=== PATIENT | male | born 1940 | race Caucasian/White ===

== ENCOUNTER 2021-12-29 14:28 | Outpatient (REF) | payer MEDICARE, SELFPAY ==
--- NOTE | ~2021-12-29 | US_ITS ---
EXAMINATION: US SCROTUM CLINICAL INFORMATION: Scrotal mass. COMPARISON: None TECHNIQUE: A sonogram of the scrotum was performed assessing haskins-scale appearance and color Doppler flow. Spectral Doppler analysis of the arterial and venous flow were performed in the testes bilaterally. FINDINGS: RIGHT: Right testicle measures 3.9 x 2.1 x 2.5 cm, volume 10.3 mL. No focal testicular parenchymal lesions are visualized. Spectral Doppler analysis of the arterial and venous flow is normal in the right testis. Right epididymal head is normal in size. There are two sub-7 mm simple epididymal head cysts. Right epididymal Doppler flow is normal. Small hydrocele. Small to moderate varicocele. LEFT: Left testicle measures 3.9 x 1.9 x 2.8 cm, volume 10.6 mL. No focal testicular parenchymal lesions are visualized. Spectral Doppler analysis of the arterial and venous flow is normal in the left testis. Left epididymal head is normal in size. There is a dominant 1.2 x 0.3 x 0.5 cm simple appearing epididymal head cyst and an additional smaller 0.4 cm simple appearing epididymal head cyst. There is a 0.6 x 0.5 x 0.7 cm simple appearing cyst in the epididymal body. There is a 0.6 x 0.5 x 0.5 cm hyperechoic observation in the epididymal body, possibly representing a calcification. Left epididymal Doppler flow is normal. No hydrocele. Small to moderate varicocele. US/US scrotum IMPRESSION: 1. No evidence of testicular torsion at the moment of this examination. 2. Small right hydrocele. 3. Small to moderate bilateral varicoceles. 4. Simple appearing bilateral epididymal head cysts. 5. Nonspecific 0.7 cm hyperechoic observation in the left epididymal body, possibly representing a calcification. Recommend a short-term follow-up in 3-6 months to ensure stability.
== END 2021-12-29 14:29 | disposition home or self-care (01) ==
LOC: HO.HMGCX 14:28
PROVIDERS: PCP Family Medicine; Visit Provider Family Medicine
DX: N50.89 Other specified disorders of the male genital organs (principal)
CPT/HCPCS: 76870

== ENCOUNTER 2022-01-04 09:35 | Outpatient (REF) | payer MEDICARE, SELFPAY ==
[2022-01-04 11:43] LABS: MANUAL DIFF FLAG NO
[2022-01-04 11:57] LABS: Appearance Urine Clear; Color Urine Yellow; Glucose Urine UA Negative (Negative); Leukocyte Esterase Urine Negative (Negative); Nitrite Urine Negative (Negative); PH 6.5 (5.0-9.0); Specific Gravity - Urine 1.015 (1.005-1.025); Urine Blood Negative (Negative); Urine Ketones Negative (Negative); Urine Protein Negative (Neg-Trace)
[2022-01-04 11:59] LABS: Basophils Absolute Auto 0.1 X10*3/uL (0.0-0.2); Basophils Percent Auto 1.2 % (0-2); Eosinophils Absolute Auto 0.6 X10*3/uL (0.0-0.4); Eosinophils Percent Auto 9.4 % (0-4); Hematocrit 45.3 % (42.0-52.0); Hemoglobin 14.6 g/dl (14.0-18.0); Imm Gran Abs Auto 0.04 X10*3/uL (0.00-0.03); Imm Gran Pct Auto 0.6 % (0.0-0.4); Lymphocytes Absolute Auto 1.4 X10*3/uL (1.2-4.9); Lymphocytes Percent Auto 20.5 % (20-40); Mean Corpuscular HGB Conc 32.2 g/dl (31.0-36.0); Mean Corpuscular Hemoglobin 28.5 pg (27.0-33.0); Mean Corpuscular Volume 88.3 fL (80.0-98.0); Mean Platelet Volume 10.3 fL (9.4-12.4); Monocytes Absolute Auto 0.6 X10*3/uL (0.1-1.2); Monocytes Percent Auto 8.4 % (2-11); Neutrophils Percent Auto 59.9 % (45-73); Platelet Count 322 X10*3/uL (160-400); Red Blood Count 5.13 X10*6/uL (4.60-5.80); Red Cell Distribution Width 12.6 % (11.0-16.0); White Blood Count 6.7 X10*3/uL (4.8-10.8)
[2022-01-04 12:21] LABS: Alanine Aminotransferase 13 U/L (0-40); Albumin Level 3.9 g/dL (3.5-5.0); Alkaline Phosphatase 115 U/L (39-117); Anion Gap 14 (12-20); Aspartate Amino Transferase 16 U/L (5-37); Bilirubin Total 0.4 mg/dL (0.0-1.0); Blood Urea Nitrogen 12 mg/dL (9-16); Calcium 9.5 mg/dL (8.4-10.2); Carbon Dioxide 31 mmol/L (22-29); Chloride 98 mmol/L (96-108); Cholesterol 151 mg/dL; Estimated Glomerular Filt Rate > 60; Glucose Fasting 91 mg/dL (60-99); HDL Cholesterol 41 mg/dL; LDL Cholesterol Calculated 92 mg/dl; Potassium 4.2 mmol/L (3.3-5.1); Sodium 139 mmol/L (135-145); Total Protein 6.5 g/dL (6.5-8.0); Triglycerides 90 mg/dL
[2022-01-04 12:25] LABS: Prostate Specific Antigen Scr 0.38 ng/mL (<0.05-4.0); TSH reflex Free T4 0.96 uIU/mL (0.32-4.0)
[2022-01-04 12:29] LABS: Creatinine Urine 199.82 mg/dL; Microalbum/Creatinine Ratio Ur 3.5 ug/mg cr
== END 2022-01-04 09:36 | disposition home or self-care (01) ==
LOC: HO.HMGCLDS 09:35
PROVIDERS: PCP Family Medicine; Visit Provider Family Medicine
DX: Z00.00 Encounter for general adult medical examination without abnormal findings (principal); Z12.5 Encounter for screening for malignant neoplasm of prostate; I10 Essential (primary) hypertension
CPT/HCPCS: 36415; 80053; 80061; 81003; 82043; 84153; 84443; 85025

== ENCOUNTER → 2022-01-13 10:56 | Outpatient (BNVA) | payer MEDICARE, SELFPAY | PROVIDERS: PCP Family Medicine; Referring Provider Family Medicine; Visit Provider Physician Assistant | DX: Z12.11 Encounter for screening for malignant neoplasm of colon (principal); J84.10 Pulmonary fibrosis, unspecified | CPT/HCPCS: 99202 ==

== ENCOUNTER → 2022-03-22 13:00 | Outpatient (BNVA) | payer MEDICARE, SELFPAY | PROVIDERS: PCP Family Medicine; Visit Provider Urology | DX: N50.89 Other specified disorders of the male genital organs (principal); N40.1 Benign prostatic hyperplasia with lower urinary tract symptoms; N13.8 Other obstructive and reflux uropathy; R39.198 Other difficulties with micturition; Z12.5 Encounter for screening for malignant neoplasm of prostate; Z79.82 Long term (current) use of aspirin | CPT/HCPCS: 51798; 99202 ==

== ENCOUNTER 2022-03-26 11:34 | Outpatient (REF) | payer MEDICARE, SELFPAY ==
--- NOTE | ~2022-03-26 | US_ITS ---
EXAMINATION: US SCROTUM CLINICAL INFORMATION: Lesion of testis. COMPARISON: Ultrasound scrotum 12/29/2021. TECHNIQUE: A sonogram of the scrotum was performed assessing haskins-scale appearance and color Doppler flow. Spectral Doppler analysis of the arterial and venous flow were performed in the testes bilaterally. FINDINGS: RIGHT: Right testicle measures 4.26 x 1.72 x 2.75 cm, volume 10.6 mL. No focal testicular parenchymal lesions are visualized. Spectral Doppler analysis of the arterial and venous flow is normal in the right testis. Right epididymal head is normal in size. Three epididymal cysts are noted ranging in size from 3 to 7 mm similar to the prior study. A small right-sided varicocele is present similar to prior. Right epididymal Doppler flow is normal. LEFT: Left testicle measures 3.94 x 1.81 x 2.71 cm, volume 10.1 mL. No focal testicular parenchymal lesions are visualized. Spectral Doppler analysis of the arterial and venous flow is normal in the left testis. Left epididymal head is normal in size. Three epididymal cysts are present ranging in size from 5 to 8 mm. The previously noted calcification in the left epididymis is again noted and unchanged measuring about 5 mm in size. No left hydrocele is seen. A small left-sided varicocele is present. Left epididymal Doppler flow is normal. US/US scrotum IMPRESSION: 1. No significant interval change since the prior study. 2. Bilateral epididymal cysts. 3. Bilateral small varicoceles. 4. The calcification/echogenic focus seen in the left epididymis is unchanged and stable.
== END 2022-03-26 11:35 | disposition home or self-care (01) ==
LOC: HO.HMGCX 11:34
PROVIDERS: PCP Family Medicine; Visit Provider Urology
DX: N50.9 Disorder of male genital organs, unspecified (principal)
CPT/HCPCS: 76870

== ENCOUNTER 2022-04-15 12:32 | Outpatient (REF) | payer MEDICARE, SELFPAY ==
[2022-04-15 14:29] LABS: Appearance Urine Clear; Color Urine Yellow; Glucose Urine UA Negative (Negative); Leukocyte Esterase Urine Negative (Negative); Nitrite Urine Negative (Negative); PH 6.5 (5.0-9.0); Urine Blood Negative (Negative); Urine Ketones Trace mg/dL (Negative); Urine Protein Negative (Neg-Trace)
== END 2022-04-15 12:33 | disposition home or self-care (01) ==
LOC: HO.LAB 12:32
PROVIDERS: Visit Provider Family Medicine
DX: Z13.89 Encounter for screening for other disorder (principal)
CPT/HCPCS: 81003; 87086

== ENCOUNTER 2022-04-15 12:46 | Outpatient (REF) | payer MEDICARE, SELFPAY ==
[2022-04-15 14:12] LABS: MANUAL DIFF FLAG NO
[2022-04-15 14:16] LABS: Basophils Absolute Auto 0.1 X10*3/uL (0.0-0.2); Eosinophils Absolute Auto 0.9 X10*3/uL (0.0-0.4); Eosinophils Percent Auto 10.3 % (0-4); Hematocrit 44.9 % (42.0-52.0); Hemoglobin 15.1 g/dl (14.0-18.0); Imm Gran Abs Auto 0.01 X10*3/uL (0.00-0.03); Imm Gran Pct Auto 0.1 % (0.0-0.4); Lymphocytes Absolute Auto 1.5 X10*3/uL (1.2-4.9); Lymphocytes Percent Auto 16.8 % (20-40); Mean Corpuscular HGB Conc 33.6 g/dl (31.0-36.0); Mean Corpuscular Hemoglobin 29.5 pg (27.0-33.0); Mean Corpuscular Volume 87.9 fL (80.0-98.0); Mean Platelet Volume 10.5 fL (9.4-12.4); Monocytes Percent Auto 11.3 % (2-11); Neutrophils Absolute Auto 5.4 x10*3/uL (2.0-8.3); Neutrophils Percent Auto 60.5 % (45-73); Platelet Count 239 X10*3/uL (160-400); Red Blood Count 5.11 X10*6/uL (4.60-5.80); Red Cell Distribution Width 12.9 % (11.0-16.0); White Blood Count 8.9 X10*3/uL (4.8-10.8)
[2022-04-15 14:45] LABS: Alanine Aminotransferase 16 U/L (0-40); Albumin Level 4.1 g/dL (3.5-5.0); Alkaline Phosphatase 115 U/L (39-117); Anion Gap 14 (12-20); Aspartate Amino Transferase 18 U/L (5-37); Bilirubin Total 0.7 mg/dL (0.0-1.0); Blood Urea Nitrogen 13 mg/dL (9-16); Calcium 9.6 mg/dL (8.4-10.2); Carbon Dioxide 31 mmol/L (22-29); Chloride 95 mmol/L (96-108); Estimated Glomerular Filt Rate > 60; Glucose Random 89 mg/dL (60-115); Potassium 4.1 mmol/L (3.3-5.1); Sodium 136 mmol/L (135-145); Total Protein 6.4 g/dL (6.5-8.0)
== END 2022-04-15 12:47 | disposition home or self-care (01) ==
LOC: HO.WFDLDS 12:46
PROVIDERS: Visit Provider Family Medicine
DX: Z00.00 Encounter for general adult medical examination without abnormal findings (principal); M54.9 Dorsalgia, unspecified
CPT/HCPCS: 36415; 80053; 81003; 85025; 87086

== ENCOUNTER 2022-05-13 13:28 | Outpatient (REF) | payer MEDICARE, SELFPAY ==
--- NOTE | ~2022-05-13 | XR_ITS ---
EXAMINATION: XR lumbar spine 2-3V CLINICAL INFORMATION: Reason for Exam M54.9 - Dorsalgia, unspecified COMPARISON: None TECHNIQUE: 3 views of the lumbar spine FINDINGS: 5 nonrib-bearing lumbar-type vertebral bodies. Vertebral body heights are maintained. Alignment is maintained. Mild multilevel degenerative disc disease with loss of disc space height, facet arthropathy and disc osteophyte complexes. This is worst at L5/S1 Atherosclerosis of the abdominal aorta. Right upper quadrant cholecystectomy clips. XR/XR lumbar spine 2-3V IMPRESSION: Mild spondylosis of the lumbar spine, as above detailed. No significant spondylolisthesis.
== END 2022-05-13 13:29 | disposition home or self-care (01) ==
LOC: HO.HMGCX 13:28
PROVIDERS: PCP Family Medicine; Visit Provider Family Medicine
DX: M54.9 Dorsalgia, unspecified (principal)
CPT/HCPCS: 72100

== ENCOUNTER → 2022-06-04 13:55 | Outpatient (BNVA) | payer MEDICARE, SELFPAY | PROVIDERS: PCP Family Medicine; Visit Provider Urology | DX: R39.198 Other difficulties with micturition (principal); N40.1 Benign prostatic hyperplasia with lower urinary tract symptoms; N13.8 Other obstructive and reflux uropathy; Z12.5 Encounter for screening for malignant neoplasm of prostate; Z79.82 Long term (current) use of aspirin; Z79.899 Other long term (current) drug therapy | CPT/HCPCS: 51798; 99212 ==

== ENCOUNTER 2022-12-08 14:48 | Outpatient (AMB) | payer MEDICARE, SELFPAY ==
[2022-12-08 14:57] VITALS: BP 130/74; PULSE 72; O2SAT 96; BMI 23.8
--- NOTE | 2022-12-08 14:57 | MHC.PC.OV ---
Vital Signs 12/08/22 14:57 Height 5 ft 7 in Weight 152 lb 3 oz BMI 23.8 BP 130/74 Blood Pressure Location Lt brachial Position Sitting Pulse 72 Pulse Source Pulse Oximeter Pulse Oximetry (%) 96 Oxygen Delivery Method Room Air Intake Visit Reasons: f/u hypertension and chronic conditions Intake Note: Patient is here for follow up on hypertension and chronic conditions. Allergies No Known Allergies Allergy (Verified 12/08/22 15:00) Medication List - Last Reconciled 12/08/22 by Eugenio Lovett MD atorvastatin 40 mg PO DAILY 90 days clotrimazole 1% 1 appl topical BID 4 weeks erythromycin 1 appl ophthalmic (eye) DAILY gabapentin 600 mg PO TID 30 days lidocaine 5% (Lidoderm) 1 patch topical DAILY 30 days omeprazole 20 mg PO DAILY tamsulosin 0.4 mg PO BEDTIME valsartan 20 mg (1/2 x 40 mg) PO BID 30 days Tobacco use date assessed: 12/08/22 Fall risk assessment: No Falls in past year Last assessed Fall Risk: 12/08/22 Dental Screening Did you have a dental visit in the last 12 months?: Yes Did you have a dental problem in the last 6 months where you did not have access to dental care?: No Was dental information given to patient?: Patient has dentist HPI f/u hypertension and chronic conditions HPI Details 82 y/o male presents to f/u hypertension and chronic conditions. Trialing off hydrochlorothiazide. Blood pressure today 130/74. He is on valsartan 20mg b.i.d. Pt reports he had not been feeling lightheaded lately except for when he coughs. Pt reports back pain. He notes he has had surgery there before. [facility] Surgical History History of back surgery History of rotator cuff surgery History of ear, nose, and throat (ENT) surgery History of left knee replacement Family History Other Substance use disorder Social History Housing: Apartment Alcohol intake: never Patient Tobacco Use Status: Former Tobacco user e-Cigarette/Vaping Use: Never Used Second Hand Smoke Exposure: Yes service: No Current occupational status: retired Current occupational exposures/hazards: No Cognitive needs: No Hearing needs: Yes (hearing aides) Vision needs: No Questionnaire Thrive Questionnaire Date Thrive assessed: 04/15/22 KARTHIK-7 AMB Questionnaire KARTHIK-7 Date KARTHIK - 7 assessed: 04/15/22 Source: Developed by Drs. Jr Mcrae, Caitlin Almaguer, Kennedy Joya and colleagues, with an educational armin from [employer]. Review of Systems Const Denies chills, Denies fatigue, Denies fever(s), Denies headache(s) and Denies weakness ENT Denies dizziness and Denies headache(s) Card Denies dyspnea Resp Denies cough, Denies dyspnea, Denies wheezing and Denies other (shortness of breath) Musc Reports back pain, Denies numbness and Denies tingling Neuro Denies dizziness, Denies headache(s), Denies numbness, Denies tingling and Denies weakness Psych Denies anxiety and Denies depression Endo Denies fatigue Aller/Immun Denies wheezing Physical exam (Primary Care) Vital Signs: Last Vital Signs Pulse 72 12/08/22 14:57 BP 130/74 12/08/22 14:57 Pulse Ox 96 12/08/22 14:57 Oxygen Delivery Method Room Air 12/08/22 14:57 BMI result Body Mass Index 23.8 Tobacco/Smoking Status: Tobacco use Status Tobacco use date assessed 12/08/22 12/08/22 15:01 Patient Tobacco Use Status Former Tobacco user 12/08/22 15:01 e-Cigarette/Vaping Use Never Used 12/08/22 15:01 Thrive Assessment: Date of Thrive Assessment Date Thrive assessed 04/15/22 12/08/22 15:01 Const General: well developed; No acute distress Nutritional Appearance: well nourished Orientation/consciousness: patient oriented x3 HENMT Head: Yes normocephalic and Yes atraumatic Eyes General: appearance normal, both eyes and all related structures Pupils: Equal, round and reactive pupils present EOM: EOMs intact bilaterally Resp Effort & Inspection: normal respiratory effort Auscultation: clear to auscultation bilaterally Cardio Rate: regular rate Rhythm: regular rhythm Heart sounds: S1 normal heart sound present, S2 normal heart sound present, no gallops, no murmurs and no rubs Neuro General: patient oriented x3 and gait normal Cranial nerves: Yes Equal, round and reactive pupils present Psych Affect: normal affect Assessment and Plan Assessment & Plan (1) Hypertension: Code(s): I10 - Essential (primary) hypertension Plan: Blood?pressure?is?controlled.??Goal?is?less?than?140/90 Was?on?hydrochlorothiazide?and?was?getting?dizzy?but?this?has?essentially?resolved. Continue?valsartan. Also?taking?tamsulosin?which?affects?his?blood?pressure?as?well. (2) Back pain: Code(s): M54.9 - Dorsalgia, unspecified Plan: Ongoing?back?pain.??Recent?L3-L4?diskectomy?by?[facility]?surgery. He?would?like?a?new?referral?to?[facility]?Neurosurgery. Referred (3) S/P lumbar discectomy: Code(s): Z98.890 - Other specified postprocedural states Plan: As?above Orders: Orders Comprehensive [place]. Panel Fast Today Z00.00 - Encounter for general adult medical examination without abnormal findings Lipid Panel Today Z00.00 - Encounter for general adult medical examination without abnormal findings TSH reflex Free T4 Today Z00.00 - Encounter for general adult medical examination without abnormal findings Complete Blood Count Auto Diff Today Z00.00 - Encounter for general adult medical examination without abnormal findings Microalbumin, Random (w Creat) Today I10 - Essential (primary) hypertension Prostate Specific Antigen Scr Today Z12.5 - Encounter for screening for malignant neoplasm of prostate UA and rflx microscopic Today Z00.00 - Encounter for general adult medical examination without abnormal findings Referrals Neurosurgery Referral M54.40 - Lumbago with sciatica, unspecified side, Z98.890 - Other specified postprocedural states Coding Level of Care Code Est Pt Level 3 (66365) Diagnoses Hypertension I10 Back pain M54.9 S/P lumbar discectomy Z98.890
== END 2022-12-08 16:08 | disposition home or self-care (01) ==
PROVIDERS: PCP Family Medicine; Visit Provider Family Medicine
DX: I10 Essential (primary) hypertension (principal); M54.9 Dorsalgia, unspecified; Z98.890 Other specified postprocedural states
CPT/HCPCS: 99213

== ENCOUNTER 2022-12-09 11:52 | Outpatient (REF) | payer MEDICARE, SELFPAY ==
[2022-12-09 14:08] LABS: Prostate Specific Antigen 0.39 ng/mL (<0.05-4.0)
== END 2022-12-09 11:53 | disposition home or self-care (01) ==
LOC: HO.HMGCLDS 11:52
PROVIDERS: PCP Family Medicine; Visit Provider Urology
DX: N40.1 Benign prostatic hyperplasia with lower urinary tract symptoms (principal); Z12.5 Encounter for screening for malignant neoplasm of prostate
CPT/HCPCS: 36415; 84153

== ENCOUNTER 2022-12-16 11:04 | Outpatient (AMB) | payer MEDICARE, SELFPAY ==
--- NOTE | 2022-12-16 11:16 | A.OFFVIS_ITS ---
Intake Intake Visit Reasons: 6m/PSA Intake Note: Patient presents today for a follow-up on BPH Loc w urine obs/LUTS, PSA Results: Meds- None Allergies to Antibiotic- No Known Allergies Blood Thinner- None PSA Results: 0.39 ng/mL 12/09/2022 PVR- 0 mL Manager Commission Required: No Accompanied by: Significant Other Allergies No Known Allergies Allergy (Verified 12/16/22 11:17) HPI 6m/PSA HPI Details Pardeep is an 82-year-old male who presents today to the office for a six-months follow up. LV -- 06/04/2022-- The patient states having benefits with Flomax 0.4 mg daily. Scrotum US results reviewed?03/26/2022-- Bilateral epididymal cysts and varicoceles. The calcification/echogenic focus seen in the left epididymis is unchanged and stable. 12/16/22 ? The patient has been taking tamsulosin 0.4 mg as directed. He denies any urinary symptoms at home. He has been having difficulty with erections. He noticed dizziness after taking Viagra and did not tolerate it well. 12/09/22 -- PSA screening result reviewe d ? 0.39 ng/mL. PSA result reviewed - 01/04/22- 0.38 ng/mL. Evaluation today-- Blood: 0 Chepe/uL, leukocytes: 0 Edson/uL. Urine protein: 15 mg/dL. Bladder scan PVR: 0ml. Plan Continue tamsulosin 0.4 mg PO as directed. 01/04/23 PSA - 0.39 Due to his age, PSA screening is not recommended per AUA guideline . The patient will follow up in one year for prostate exam. PENDING SALE TO [facility] Surgical History History of back surgery History of rotator cuff surgery History of ear, nose, and throat (ENT) surgery History of left knee replacement Family History Other Substance use disorder Social History Housing: Apartment Alcohol intake: never Patient Tobacco Use Status: Former Tobacco user e-Cigarette/Vaping Use: Never Used Second Hand Smoke Exposure: Yes service: No Current occupational status: retired Current occupational exposures/hazards: No Cognitive needs: No Hearing needs: Yes (hearing aides) Vision needs: No Review of Systems Const All systems reviewed & are unremarkable except as noted in HPI and below Reports no additional complaints Eyes Reports no additional complaints ENT Reports no additional complaints Card Reports no additional complaints Resp Reports no additional complaints GI Reports no additional complaints Musc Reports no additional complaints Skin/Breast Reports system reviewed and no additional complaints, except as documented Neuro Reports no additional complaints Psych Reports no additional complaints Endo Reports no additional complaints Nasir/Lymph Reports no additional complaints Aller/Immun Reports no additional complaints Physical Exam Const General: healthy appearing, no acute distress and well developed Orientation/consciousness: patient oriented x3 HEENT Head: Yes normocephalic and Yes atraumatic Eyes Conjunctivae: conjunctivae normal Neck Neck: Yes normal visual inspection Chest Chest palpation & inspection: normal inspection of the chest Resp Effort & Inspection: normal respiratory effort Cardio Rate: regular rate GI Inspection: Yes normal to inspection Skin General skin exam: no rashes or lesions noted Neuro General: patient oriented x3 Extrem General: Yes no pedal edema Psych Appearance: grossly normal Affect: normal affect Office Procedures Post Void Residual Post Residual Void Post Void Residual (PVR): 0 [id number]-[id number] Void Residual by ultrasound Results AMB Urinalysis, Automated UA Leukoctes 0 Edson/uL Last Edit by YODIT Velarde on 12/16/22 11:27 UA Nitrite Negative Last Edit by YODIT Velarde on 12/16/22 11:27 UA Urobilinogen 0.2 mg/dL Last Edit by YODIT Velarde on 12/16/22 11:2 7 UA Protein 15 mg/dL Last Edit by YODIT Velarde on 12/16/22 11:27 UA pH 6.0 Last Edit by YODIT Velarde on 12/16/22 11:27 UA Blood 0 Chepe/uL Last Edit by YODIT Velarde on 12/16/22 11:27 UA Specific [place] 1.015 Last Edit by YODIT Velarde on 12/16/22 11: 27 UA Ketone Negative Last Edit by YODIT Velarde on 12/16/22 11:27 UA Bilirubin 0 mg/dL Last Edit by YODIT Velarde on 12/16/22 11:27 UA Glucose 0 mg/dL Last Edit by YODIT Velarde on 12/16/22 11:27 Results Reviewed Results Reviewed: Laboratory Last Values Urine pH (Auto) 6.0 12/16/22 11:19 Specific [place] (Auto) 1.015 12/16/22 11:19 Urine Protein (Auto) 15 mg/dL 12/16/22 11:19 Glucose (UA)(Auto) 0 mg/dL 12/16/22 11:19 Urine Ketones (Auto) Negative 12/16/22 11:19 Urine Blood (Auto) 0 Chepe/uL 12/16/22 11:19 Urine Nitrite (Auto) Negative 12/16/22 11:19 Urine Bilirubin (Auto) 0 mg/dL 12/16/22 11:19 Urine Urobilinogen (Auto) 0.2 mg/dL 12/16/22 11:19 Leukocyte Esterase (Auto) 0 Edson/uL 12/16/22 11:19 Assessment & Plan Assessment & Plan (1) BPH loc w urin obs/LUTS: Code(s): N40.1 - Benign prostatic hyperplasia with lower urinary tract symptoms (2) Slowing of urinary stream: Code(s): R39.198 - Other difficulties with micturition Plan Continue tamsulosin 0.4 mg PO as directed. 01/04/22 PSA - 0.38 Due to his age, PSA screening is not recommended per AUA guideline . The patient will follow up in one year for prostate exam. Orders: Orders Prostate Specific Antigen 12/09/22 N40.1 - Benign prostatic hyperplasia with lower urinary tract symptoms AMB Urinalysis Automated 12/16/22 Z13.9 - Encounter for screening, unspecified AMB Post Void Residual by ultrasound 12/16/22 N39.8 - Other specified disorders of urinary system Patient Instructions: The patient had an opportunity to ask questions regarding treatment plan. All questions were answered. Imaging, Laboratory studies and physical exam results were discussed and reviewed in detail. No major barriers to understanding were identified. The patient expressed understanding and agreement with the above treatment plan. The patient is aware they should contact our office by phone for worsening of their current condition or the appearance of new symptoms. Compliance is encouraged with any medications and followup testing that is ordered. It is a privilege to be allowed the opportunity to participate in the urologic care of your patient. If you have any questions or concerns regarding treatment for the above conditions please do not hesitate to contact me. The office telephone contact is [phone]. This note is constructed in part using voice recognition software. While every effort has been made to ensure accuracy [employer] business [employer] errors may have been included. Yours sincerely, Erik Apodaca MD Coding Level of Care Code Est Pt Level 3 (61215) Diagnoses BPH loc w urin obs/LUTS N40.1 Slowing of urinary stream R39.198 CPT Codes Post Residual Void - PVR CPT Code: 40821-Slhy Void Residual by ultrasound ([id number])
== END 2022-12-16 11:40 | disposition home or self-care (01) ==
PROVIDERS: PCP Family Medicine; Visit Provider Urology
DX: N40.1 Benign prostatic hyperplasia with lower urinary tract symptoms (principal); R39.198 Other difficulties with micturition
CPT/HCPCS: 99213

== ENCOUNTER → 2022-12-16 11:04 | Outpatient (BNVA) | payer MEDICARE, SELFPAY | PROVIDERS: Visit Provider Urology | DX: N40.1 Benign prostatic hyperplasia with lower urinary tract symptoms (principal); N13.8 Other obstructive and reflux uropathy; R39.198 Other difficulties with micturition; Z79.899 Other long term (current) drug therapy | CPT/HCPCS: 51798; 81003; 99212 ==

== ENCOUNTER 2023-03-15 11:05 | Outpatient (AMB) | payer MEDICARE, SELFPAY ==
--- NOTE | 2023-03-15 11:09 | A.OFFPC_ITS ---
Vital Signs 03/15/23 11:10 Height 5 ft 7 in Weight 145 lb 2 oz BMI 22.7 BP 122/70 Blood Pressure Location Lt brachial Position Sitting Respiration 13 Pulse 97 Pulse Source Pulse Oximeter Pulse Oximetry (%) 98 Oxygen Delivery Method Room Air Intake Visit Reasons: Extended exam with f/u labs and health maint. Intake Note: Patient is here for an extended exam and to review labs. Patient has labs dated 01/18/23 in scanned lab reports. Patient reports he would like to discuss chronic cough and back pain. Patient is requesting 90 day prescriptions for atorvastatin and Valsartan. Patient was referred to [facility] Neurosurgery for sciatica. This was followed up on this morning and there is a workload message to the provider with a detailed update. Sharepoint [employer] Architect Required: No Accompanied by: Self / Same As Patient Allergies No Known Allergies Allergy (Verified 03/15/23 11:22) Tobacco use date assessed: 12/08/22 HPI Extended exam with f/u labs and health maint. HPI Details 83 y/o male presents for an extended exa m with f/u labs and health maintenance. Some labs were drawn 01/18/23. Glucose elevated at 124. He is unsure if he was fasting that day. Liver enzymes are fine. No recent lipid panel. Pt reports chronic cough. Also reports back pain. He reports he had went to see [facility] January and he reports he referred him to [facility]. He reports he has been doing exercises they had sent him. [facility] Surgical History History of back surgery History of rotator cuff surgery History of ear, nose, and throat (ENT) surgery History of left knee replacement Family History Other Substance use disorder Social History Housing: Apartment Alcohol intake: never Patient Tobacco Use Status: Former Tobacco user e-Cigarette/Vaping Use: Never Used Second Hand Smoke Exposure: Yes service: No Current occupational status: retired Current occupational exposures/hazards: No Cognitive needs: No Hearing needs: Yes (hearing aides) Vision needs: No Questionnaire Thrive Questionnaire Date Thrive assessed: 04/15/22 KARTHIK-7 AMB Questionnaire KARTHIK-7 Date KARTHIK - 7 assessed: 04/15/22 Source: Developed by Drs. Jr Mcrae, Caitlin Almaguer, Kennedy Joya and colleagues, with an educational armin from [employer]. Review of Systems Const Denies chills, Denies fatigue, Denies fever(s), Denies headache(s) and Denies weakness Eyes Denies change in vision ENT Denies dizziness, Denies headache(s), Denies hearing loss, Denies nasal congestion, Denies sinus pain, Denies sinus pressure and Denies sore throat Card Denies chest pain, Denies lightheadedness, Denies dyspnea and Denies other (palpitations) Resp Reports cough, Denies dyspnea and Denies wheezing GI Denies abdominal pain, Denies melena, Denies hematochezia, Denies change in bowel habits, Denies dyspepsia and Denies nausea Denies hematuria and Denies dysuria Musc Denies abnormal gait, Reports back pain, Denies numbness and Denies tingling Skin/Breast Denies rash, Denies unusual bruising and Denies wounds Neuro Denies abnormal gait, Denies dizziness, Denies headache(s), Denies memory loss, Denies numbness, Denies Sensory deficit (Neuro), Denies tingling and Denies weakness Psych Denies anxiety, Denies depression and Denies memory loss Endo Denies cold intolerance, Denies fatigue, Denies heat intolerance, Denies polydipsia and Denies polyuria Nasir/Lymph Denies easy bleeding and Denies easy bruising Aller/Immun Denies wheezing Physical exam (Primary Care) Vital Signs: Last Vital Signs Pulse 97 03/15/23 11:10 Resp 13 03/15/23 11:10 BP 122/70 03/15/23 11:10 Pulse Ox 98 03/15/23 11:10 Oxygen Delivery Method Room Air 03/15/23 11:10 BMI result Body Mass Index 22.7 Tobacco/Smoking Status: Tobacco use Status Tobacco use date assessed 12/08/22 03/15/23 11:15 Patient Tobacco Use Status Former Tobacco user 03/15/23 11:15 e-Cigarette/Vaping Use Never Used 03/15/23 11:15 Thrive Assessment: Date of Thrive Assessment Date Thrive assessed 04/15/22 03/15/23 11:15 Const General: no acute distress, well developed, alert and awake Nutritional Appearance: well nourished Orientation/consciousness: patient oriented x3 [facility] Head: Yes normocephalic and Yes atraumatic Ears: hearing grossly normal bilaterally and TM's normal bilaterally General nose exam: Normal external nose present and Normal nares present Mouth: Normal oral and palatal mucosa present and moist mucous membranes Teeth and gingiva: dentition normal Throat: Yes posterior oropharynx normal Eyes General: appearance normal, both eyes and all related structures Pupils: Equal, round and reactive pupils present and Pupil accommodation reflex normal EOM: EOMs intact bilaterally Neck Neck: Yes normal visual inspection, Yes no lymphadenopathy and Yes trachea midline Thyroid: Thyroid normal Carotids: no bruits Lymphatic: no lymphadenopathy noted Chest Chest palpation & inspection: normal inspection of the chest Resp Effort & Inspection: normal respiratory effort Auscultation: clear to auscultation bilaterally Cardio Rate: regular rate Rhythm: regular rhythm Heart sounds: S1 normal heart sound present, S2 normal heart sound present, no gallops, no murmurs and no rubs Bruits: no abdominal aortic bruits and no carotid bruits GI Palpation (GI): No Abdominal aortic bruit present, Soft to palpation, nontender, No hepatosplenomegaly present and No Rebound tenderness present Auscultation: normal bowel sounds General: Yes no CVA tenderness Back/Spine/Pelvis Back: no CVA tenderness Cervical Spine: cervical ROM normal and No Cervical spine tenderness Thoracic/Lumbar Spine: thoraco-lumbar ROM normal, No pain with thoraco-lumbar ROM, No thoracic spinal tenderness and No lumbar spinal tenderness Skin Lesions: no lesions Rashes: no rashes Trauma: no lacerations or abrasions Wounds: no wounds Nails: normal Neuro General: patient oriented x3 Cranial nerves: Yes Equal, round and reactive pupils present Cognition (Neuro): normal cognition Gait exam (Neuro): Normal gait present and Assisted gait required (uses a cane) Motor exam (neuro): 5/5 motor strength present throughout Sensory Exam: No Sensory deficit (Neuro) Deep tendon reflexes (DTR's): Right patellar reflex intensity grade: 2+ and Left patellar reflex intensity grade: 2+ Extrem General: Yes normal to inspection and No edema Psych Appearance: grossly normal Affect: normal affect Attitude: cooperative Thought process: Normal thought process present Assessment and Plan Assessment & Plan (1) Hypertension: Code(s): I10 - Essential (primary) hypertension Plan: Blood?pressure?controlled Continue?current?medication (2) Hyperlipidemia: Code(s): E78.5 - Hyperlipidemia, unspecified Plan: He?will?get?his?lipids?drawn?prior?to?our?next?encounter (3) Chronic cough: Code(s): R05.3 - Chronic cough Plan: History?of?pulmonary?fibrosis?and?followed?at?[facility]icin e Lungs?are?rather?clear?today.??Very?faint?crackles?at?left?base?with?deep?inspir ation. Follow-up?with?Pulmonary?as?recommended (4) Back pain: Code(s): M54.9 - Dorsalgia, unspecified Plan: Ongoing?back?pain.??Patient?is?able?to?walk?his?dog.??He?has?no?loss?of?bowel?or ?bladder?function?and?no?saddle?anesthesia?or?lower?extremity?weakness?or?numbne ss. He?saw?[facility] who?f elt?there?was?no?disc?problem?and?referred?him?to?[facility]for?p hysical?therapy Follow-up?with[facility]?as?recommended (5) Elevated fasting glucose: Code(s): R73.01 - Impaired fasting glucose Plan: Will?check?A1c?with?his?upcoming?lab?draw (6) Screening for colon cancer: Code(s): Z12.11 - Encounter for screening for malignant neoplasm of colon Plan: Check?Cologuard?test.??If?negative, we?can?stop?screening?for?colon?cancer (7) Screening for prostate cancer: Code(s): Z12.5 - Encounter for screening for malignant neoplasm of prostate Plan: Check?PSA (8) Adult general medical exam: Code(s): Z00.00 - Encounter for general adult medical examination without abnormal findings Plan: 83-year-old?male?presents?for?an?extended?exam Orders: Orders Hemoglobin A1c Today R73.01 - Impaired fasting glucose Comprehensive [place]. Panel Fast Today Z00.00 - Encounter for general adult medical examination without abnormal findings Complete Blood Count Auto Diff Today Z00.00 - Encounter for general adult medical examination without abnormal findings Microalbumin, Random (w Creat) Today I10 - Essential (primary) hypertension Prostate Specific Antigen Scr Today Z12.5 - Encounter for screening for malignant neoplasm of prostate UA and rflx microscopic Today Z00.00 - Encounter for general adult medical examination without abnormal findings Lipid Panel Today Z00.00 - Encounter for general adult medical examination without abnormal findings TSH reflex Free T4 Today Z00.00 - Encounter for general adult medical examination without abnormal findings Referrals Cologuard Test Z12.11 - Encounter for screening for malignant neoplasm of colon, Z12.12 - Encounter for screening for malignant neoplasm of rectum Medications: Changed From valsartan 20 mg (1/2 x 40 mg) PO BID 30 days 30 tabs 2RF To valsartan 20 mg (1/2 x 40 mg) PO BID 90 tabs 2RF 90 days Coding Level of Care Code Est Pt Level 4 (72418) Diagnoses Hypertension I10 Hyperlipidemia E78.5 Chronic cough R05.3 Back pain M54.9 Elevated fasting glucose R73.01 Screening for colon cancer Z12.11 Screening for prostate cancer Z12.5 Adult general medical exam Z00.00
[2023-03-15 11:10] VITALS: BP 122/70; PULSE 97; RESP 13; O2SAT 98; BMI 22.7
== END 2023-03-15 12:16 | disposition home or self-care (01) ==
PROVIDERS: PCP Family Medicine; Visit Provider Family Medicine
DX: I10 Essential (primary) hypertension (principal); E78.5 Hyperlipidemia, unspecified; R05.3 Chronic cough; M54.9 Dorsalgia, unspecified; R73.01 Impaired fasting glucose
CPT/HCPCS: 99214

== ENCOUNTER 2023-03-16 10:06 | Outpatient (REF) | payer MEDICARE, SELFPAY ==
[2023-03-16 13:31] LABS: MANUAL DIFF FLAG NO
[2023-03-16 13:33] LABS: Basophils Absolute Auto 0.1 X10*3/uL (0.0-0.2); Basophils Percent Auto 0.8 % (0-2); Eosinophils Absolute Auto 0.8 X10*3/uL (0.0-0.4); Eosinophils Percent Auto 12.8 % (0-4); Hematocrit 43.3 % (42.0-52.0); Hemoglobin 14.2 g/dl (14.0-18.0); Imm Gran Abs Auto 0.02 X10*3/uL (0.00-0.03); Imm Gran Pct Auto 0.3 % (0.0-0.4); Lymphocytes Absolute Auto 1.5 X10*3/uL (1.2-4.9); Lymphocytes Percent Auto 24.6 % (20-40); Mean Corpuscular HGB Conc 32.8 g/dl (31.0-36.0); Mean Corpuscular Hemoglobin 29.3 pg (27.0-33.0); Mean Corpuscular Volume 89.5 fL (80.0-98.0); Mean Platelet Volume 11.2 fL (9.4-12.4); Monocytes Absolute Auto 0.6 X10*3/uL (0.1-1.2); Monocytes Percent Auto 9.6 % (2-11); Neutrophils Absolute Auto 3.1 x10*3/uL (2.0-8.3); Neutrophils Percent Auto 51.9 % (45-73); Platelet Count 231 X10*3/uL (160-400); Red Blood Count 4.84 X10*6/uL (4.60-5.80); White Blood Count 5.9 X10*3/uL (4.8-10.8)
[2023-03-16 13:47] LABS: Estimated Average Glucose 105 mg/dL; Hemoglobin A1c % 5.3 % (<6.0)
[2023-03-16 13:56] LABS: Appearance Urine Clear; Color Urine Yellow; Glucose Urine UA Negative (Negative); Leukocyte Esterase Urine Negative (Negative); Nitrite Urine Negative (Negative); PH 8.5 (5.0-9.0); Specific Gravity - Urine 1.015 (1.005-1.025); Urine Blood Negative (Negative); Urine Ketones Negative (Negative); Urine Protein Negative (Neg-Trace)
[2023-03-16 14:09] LABS: Alanine Aminotransferase 12 U/L (0-40); Albumin Level 3.8 g/dL (3.5-5.0); Alkaline Phosphatase 112 U/L (39-117); Anion Gap 11 (12-20); Aspartate Amino Transferase 17 U/L (5-37); Bilirubin Total 0.6 mg/dL (0.0-1.0); Blood Urea Nitrogen 12 mg/dL (9-16); Calcium 9.5 mg/dL (8.4-10.2); Carbon Dioxide 32 mmol/L (22-29); Chloride 101 mmol/L (96-108); Cholesterol 132 mg/dL (<200); Estimated Glomerular Filt Rate > 60; Glucose Fasting 86 mg/dL (60-99); HDL Cholesterol 41 mg/dL (>40); LDL Cholesterol Calculated 77 mg/dL (<100); Potassium 4.3 mmol/L (3.3-5.1); Sodium 140 mmol/L (135-145); Total Protein 6.5 g/dL (6.5-8.0); Triglycerides 70 mg/dL (<150)
[2023-03-16 14:11] LABS: Prostate Specific Antigen Scr 0.31 ng/mL (<0.05-4.0)
[2023-03-16 14:14] LABS: TSH reflex Free T4 0.47 uIU/mL (0.32-4.0)
[2023-03-16 14:30] LABS: Microalbumin Urine < 5.0 mg/L
== END 2023-03-16 10:07 | disposition home or self-care (01) ==
LOC: HO.HMGCLDS 10:06
PROVIDERS: PCP Family Medicine; Visit Provider Family Medicine
DX: Z00.00 Encounter for general adult medical examination without abnormal findings (principal); R73.01 Impaired fasting glucose; I10 Essential (primary) hypertension; Z12.5 Encounter for screening for malignant neoplasm of prostate
CPT/HCPCS: 36415; 80053; 80061; 81003; 82043; 82570; 83036; 84153; 84443; 85025

== ENCOUNTER 2023-04-08 12:09 | Outpatient (AMB) | payer MEDICARE, SELFPAY ==
--- NOTE | 2023-04-08 12:01 | MHC.PC.OV ---
Intake Visit Reasons: f/u CPE-labs Intake Note: Patient is following up on his lab work today. Allergies No Known Allergies Allergy (Verified 04/08/23 12:03) Tobacco use date assessed: 04/08/23 Fall risk assessment: No Falls in past year Last assessed Fall Risk: 04/08/23 Dental Screening Dental Screen Date: 04/08/23 Did you have a dental visit in the last 12 months?: Yes Did you have a dental problem in the last 6 months where you did not have access to dental care?: No Was dental information given to patient?: Patient has dentist HPI f/u CPE-labs HPI Details 83 y/o male presents to f/u CPE-labs via telemedicine. Labs were drawn 03/16/23. Reviewed labs with pt. A1c 5.3%. Triglycerides 70. TC 132. LDL 77. HDL 41. He is on artovastatin 40mg daily. [facility] Surgical History History of back surgery History of rotator cuff surgery History of ear, nose, and throat (ENT) surgery History of left knee replacement Family History Other Substance use disorder Social History Housing: Apartment Alcohol intake: never Patient Tobacco Use Status: Former Tobacco user e-Cigarette/Vaping Use: Never Used Second Hand Smoke Exposure: Yes service: No Current occupational status: retired Current occupational exposures/hazards: No Cognitive needs: No Hearing needs: Yes (hearing aides) Vision needs: No Questionnaire Thrive Questionnaire Date Thrive assessed: 04/15/22 KARTHIK-7 AMB Questionnaire KARTHIK-7 Date KARTHIK - 7 assessed: 04/15/22 Source: Developed by Drs. Jr Mcrae, Caitlin Almaguer, Kennedy Joya and colleagues, with an educational armin from [employer]. Review of Systems Const Denies chills, Denies fatigue, Denies fever(s), Denies headache(s) and Denies weakness ENT Denies dizziness and Denies headache(s) Card Denies dyspnea Resp Denies cough, Denies dyspnea, Denies wheezing and Denies other (shortness of breath) Musc Denies numbness and Denies tingling Neuro Denies dizziness, Denies headache(s), Denies numbness, Denies tingling and Denies weakness Psych Denies anxiety and Denies depression Endo Denies fatigue Aller/Immun Denies wheezing Physical exam (Primary Care) Tobacco/Smoking Status: Tobacco use Status Tobacco use date assessed 04/08/23 04/08/23 12:05 Patient Tobacco Use Status Former Tobacco user 04/08/23 12:02 e-Cigarette/Vaping Use Never Used 04/08/23 12:02 Thrive Assessment: Date of Thrive Assessment Date Thrive assessed 04/15/22 04/08/23 12:02 Telehealth Telehealth Location of provider rendering services: practice address Location of patient: address on file Patient Identification confirmed using: Name, : Yes Telehealth method: voice only Patient verbally consented to treatment: Yes Patient verbally consented to billing insurance company: Yes Patient informed of any privacy concerns related to visit: Yes Minutes spent on Phone/Video with Pt.: 6 Assessment and Plan Assessment & Plan (1) Elevated fasting glucose: Code(s): R73.01 - Impaired fasting glucose Plan: Patient?had?had?some?mildly?elevated?fasting?blood?sugars?in?the?past.??His?fasting?blood?sugar?was?well?within?normal?limits?and?A1c?was?5.3%?which?is?within?normal?limits?as?well. May?have?some?mild?insulin?resistance No?indications?for?medication. We?can?continue?to?monitor (2) Hyperlipidemia: Code(s): E78.5 - Hyperlipidemia, unspecified Plan: He?is?on?atorvastatin Lipid?panel?values?are?all?within?target?range Continue?atorvastatin (3) Screening for prostate cancer: Code(s): Z12.5 - Encounter for screening for malignant neoplasm of prostate Plan: PSA?is?within?normal?limits?and?on?the?lower?side. He?has?seen?his?urologist?in?the?past?and?can?continue?to?follow-up?as?recommended. Patient?had?questions?regarding?digital?rectal?exam?and?I?advised?him?to?discuss?his?wrist?tolerance?with?his?urologist. (4) Screening for colon cancer: Code(s): Z12.11 - Encounter for screening for malignant neoplasm of colon Plan: Had?ordered?Cologuard?test.??Patient?says?he?sent?back?recently. Results?are?not?available?yet.??Will?call?patient?if?results?require?action.??Otherwise?we?can?discuss?at?his?next?appointment Coding Level of Care Code Tele Est Pt Level 2 (63045) Diagnoses Elevated fasting glucose R73.01 Hyperlipidemia E78.5 Screening for prostate cancer Z12.5 Screening for colon cancer Z12.11
== END 2023-04-08 13:05 | disposition home or self-care (01) ==
LOC: HO.HMGFM 12:09
PROVIDERS: PCP Family Medicine; Visit Provider Family Medicine
DX: R73.01 Impaired fasting glucose (principal); E78.5 Hyperlipidemia, unspecified; Z12.5 Encounter for screening for malignant neoplasm of prostate; Z12.11 Encounter for screening for malignant neoplasm of colon
CPT/HCPCS: 99441

== ENCOUNTER 2023-07-29 00:14 | Inpatient (IN) | payer MEDICARE, SELFPAY ==
[2023-07-29] VITALS (16 sets, daily range): BP systolic 156–195; BP diastolic 71–102; PULSE 59–96; RESP 16–24; TEMP 36–36.6; O2SAT 93–100; BMI 26.4
--- NOTE | ~2023-07-29 | CT_ITS ---
EXAMINATION: CT ABDOMEN AND PELVIS WITHOUT CONTRAST CLINICAL INFORMATION: Abdominal pain. Concern for small bowel obstruction. COMPARISON: None available. TECHNIQUE: Multidetector volumetric imaging was performed from the superior aspect of the liver through the pubic symphysis. Sagittal and coronal reformatted images were obtained on the technologist's workstation. This CT examination was performed using dose optimization techniques as appropriate, variously including the following: *Automated exposure control *Adjustment of mA and/or kV according to patient size (this includes techniques or standardized protocols for targeted exams where dose is matched to indication/reason for exam; i.e. extremities or head) *Use of iterative reconstruction technique DLP: 431 mGy-cm FINDINGS: LUNG BASES: There is interstitial coarsening at both lung bases. LIVER, GALLBLADDER, AND BILIARY TREE: The liver is normal in size, shape, and attenuation. No focal hepatic lesion or biliary ductal dilatation is present. There has been a prior cholecystectomy. PANCREAS: Unremarkable. SPLEEN: Unremarkable. ADRENAL GLANDS: Unremarkable. KIDNEYS AND URETERS: The kidneys are normal in size, shape, and attenuation. No hydronephrosis, hydroureter, or calculi seen. No perinephric stranding. BLADDER: Unremarkable. GASTROINTESTINAL TRACT: There are diverticula of the descending and the sigmoid colon without diverticulitis. There is twisting of the mesentery in the right lower quadrant near the region of the distal ileum. There are distended descending colonic bowel loops and mildly dilated small bowel loops up to 4 cm. The appendix is not identified. ABDOMINAL WALL: No significant hernia is appreciated. LYMPH NODES: Normal. VASCULAR: There is atherosclerotic plaque of the abdominal aorta and proximal branches. PELVIC VISCERA: Prostate gland hypertrophy and calcifications. OSSEOUS STRUCTURES: There is degenerative change throughout the thoracolumbar spine. CT/CT abdomen pelvis wo IV con IMPRESSION: 1. There is twisting of the mesentery in the right lower quadrant near the region of the distal ileum. There are distended colonic bowel loops and mildly dilated small bowel loops up to 4 cm. The findings are consistent with a small bowel obstruction probably related to small bowel volvulus.. 2. There is diverticulosis of the colon without diverticulitis. 3. Status post cholecystectomy. 4. Interstitial coarsening at both lung bases. Fleischner guidelines were followed.
--- NOTE | 2023-07-29 00:35 | ECG_ITS ---
Test Reason : ABD PAIN Blood Pressure : / mmHG Vent. Rate : 066 BPM Atrial Rate : 066 BPM P-R Int : 156 ms QRS Dur : 084 ms QT Int : 404 ms P-R-T Axes : 054 024 017 degrees QTc Int : 423 ms Normal sinus rhythm with sinus arrhythmia Normal ECG No previous ECGs available Referred By: Elisabeth Gupta Electronically Signed By:Syd Marie
[2023-07-29] MEDS: Morphine Sulfate 2 MG/ML CARTRIDGE 1 MG IVPUSH (00:55)
[2023-07-29] MEDS: 0.9 % Sodium Chloride 1,000 ML 999 ML IV (00:56)
--- NOTE | 2023-07-29 01:19 | ED_ITS ---
HPI - Abdominal Pain General Chief Complaint: Abdominal Pain Stated Complaint: Abdominal Pain Time Seen by Provider: 07/29/23 00:35 Source: patient and EMS Mode of arrival: EMS Limitations: no limitations History of Present Illness ED Provider: DR. Gupta HPI narrative: 83-year-old male brought in by EMS for evaluation of abdominal pain since 19:00 last night, patient is constant waxing and weaning described as cramps, patient initially was associated with nausea but no vomiting, had 1 loose bowel movement brown in color after the pain started. Has been eating with normal appetite, no other sick contacts, no recent travel, no recent use of antibiotic. Past surgical history significant for Liset fundoplication. Related Data Home Medications ?Medication ?Instructions ?Recorded ?Confirmed omeprazole 20 mg tablet,delayed 20 mg PO DAILY 12/07/21 12/08/22 release Previous Rx's ?Medication ?Instructions ?Recorded tamsulosin 0.4 mg capsule 0.4 mg PO BEDTIME #90 caps 09/30/22 valsartan 40 mg tablet 20 mg (1/2 x 40 mg) PO BID 90 days 03/15/23 #90 tabs atorvastatin 40 mg tablet 40 mg PO DAILY 90 days #90 tabs 03/31/23 gabapentin 600 mg tablet 600 mg PO TID 30 days #90 tabs 06/01/23 Allergies Allergy/AdvReac Type Severity Reaction Status Date / Time No Known Allergies Allergy Verified 07/29/23 00:42 Review of Systems Review of Systems All other systems are reviewed and are negative Constitutional: Reports as per HPI and Reports no additional constitutional complaints Eyes: Reports as per HPI and Reports no additional eye complaints Reports system reviewed and no additional complaints, except as documented Cardiovascular: Reports as per HPI and Reports no additional cardiovascular complaints Respiratory: Reports as per HPI and Reports no additional respiratory complaints Gastrointestinal: Reports as per HPI and Reports no additional gastrointestinal complaints Genitourinary: Reports no additional female genitourinary complaints Musculoskeletal: Reports no additional musculoskeletal complaints Skin/Breast: Reports system reviewed and no additional complaints, except as docu Psychiatric: Reports no additional psychiatric complaints Endocrine: Reports no additional endocrine complaints Hematologic/Lymphatic: Reports no additional hematologic/lymphatic complaints Allergic/Immunologic: Reports no additional allergic/immunologic complaints Reports system reviewed and no additional complaints, except as documented and Reports Abnormal speech present [facility] Past Medical History Surgical History History of back surgery History of rotator cuff surgery History of ear, nose, and throat (ENT) surgery History of left knee replacement Family History Family History Other Substance use disorder Social History Social History Housing: Apartment Alcohol intake: never Patient Tobacco Use Status: Former Tobacco user Smoked in Last 30 Days: No e-Cigarette/Vaping Use: Never Used Second Hand Smoke Exposure: Yes Use of substances other than those prescribed or required for medical reasons: No Advance Directives: No Advance Directives Information Provided: Yes Do you have a plan to hurt others: No Plan service: No Current occupational status: retired Current occupational exposures/hazards: No Cognitive needs: No Hearing needs: Yes (hearing aides) Vision needs: No Physical Exam ED Vital Signs: Vital Signs - 24 hr 07/29/23 00:40 Temperature 97.6 F Pulse Rate 96 Respiratory Rate 16 Blood Pressure 168/87 H Pulse Oximetry 97 Oxygen Delivery Method Room Air BMI result Body Mass Index 26.4 Vital signs have been reviewed and appear to be correct. Blood pressure elevated. Heart rate normal. Respiratory rate normal. Temperature normal. Oxygen saturation normal. Appearance: Alert. Oriented X3. No acute distress. Head: Normal external exam. Normocephalic. Atraumatic. No Waterman signs noted. No raccoon eyes noted Eyes: PERRLA. EOMI. Conjunctiva and sclera normal. Eyelids normal. ENT: TM's Normal. Pharynx normal. Uvula midline. Moist mucous membranes. No trismus noted. No drooling noted. No muffled voice noted. Neck: Normal inspection. Neck supple. FROM. No adenopathy. Thyroid Normal. No meningeal signs. No neck mass noted. CVS: Normal heart rate and rhythm. Heart sound normal. No murmurs noted. Pulses normal throughout. Respiratory: No respiratory distress. Painless inspiration. Breath sounds normal. No wheezes/rales/rhonchi noted. Chest nontender. No accessory muscle usage noted or decreased air movement noted. Abdomen: Soft, diffuse abdominal tenderness with voluntarily guarding, no rebound tenderness. Bowel sounds normal in all 4 quadrants. No distention noted. No organomegaly noted. No visible injury noted. Back: No CVA tenderness. Full range of motion noted. Skin: Skin warm and dry. Normal skin color. Normal skin turgor. No rashes/lesions/lacerations noted. Extremities: No lower extremity edema. Extremities exhibit normal range of motion. Extremities nontender. Neuro: Oriented X 3. Cranial nerve exam: II-XII are grossly intact No motor deficit. No sensory deficit. Reflexes normal. Course Reevaluation(s) Reevaluation #1: 83-year-old male came in with abdominal pain CT reveals evidence of volvulus, the case was discussed with Dr. Arana. Patient's symptoms improved after was given morphine in the ED, pain is coming back with nausea will administer more morphine and Zofran will keep the patient NPO. Time: 03:37 Medical Decision Making Differential Diagnosis Differential Diagnoses: The differential diagnosis associated with the presentation includes (Acute appendicitis, colitis, diverticulitis, pancreatitis, acute cholecystitis, SBO, severe anemia, electrolyte derangement, volvulus.) Admission/Observation Consideration of admission/observation: Escalation of care including admission/observation considered Consult Healthcare Provider Management of the patient was discussed with: Sales Representative [employer] (Dr. Arana) Lab Data MDM Lab Attestation statement: I reviewed the patient's lab results. 07/29/23 00:57 07/29/23 00:57 Labs: Lab Results 07/29/23 Range/Units 00:57 WBC 7.6 (4.8-10.8) X10*3/uL RBC 4.29 L (4.60-5.80) X10*6/uL Hgb 13.1 L (14.0-18.0) g/dl Hct 38.3 L (42.0-52.0) % MCV 89.3 (80.0-98.0) fL MCH 30.5 (27.0-33.0) pg MCHC 34.2 (31.0-36.0) g/dl RDW 13.5 (11.0-16.0) % Plt Count 181 (160-400) X10*3/uL MPV 10.9 (9.4-12.4) fL Immature Gran % (Auto) 0.4 (0.0-0.4) % Neut % (Auto) 79.5 H (45-73) % Lymph % (Auto) 9.6 L (20-40) % Dukes % (Auto) 9.7 (2-11) % Eos % (Auto) 0.5 (0-4) % Baso % (Auto) 0.3 (0-2) % Lymph # (Auto) 0.7 L (1.2-4.9) X10*3/uL Dukes # (Auto) 0.7 (0.1-1.2) X10*3/uL Eos # (Auto) 0.0 (0.0-0.4) X10*3/uL Baso # (Auto) 0.0 (0.0-0.2) X10*3/uL Abs Immat Gran (auto) 0.03 (0.00-0.03) X10*3/uL Absolute Neuts (auto) 6.0 (2.0-8.3) x10*3/uL Absolute Nucleated RBC 0.000 (0.0-0.012) X10*3/uL Nucleated RBC % (auto) 0.0 (0.0-0.2) /100WBC Sodium 139 (135-145) mmol/L Potassium 3.9 (3.3-5.1) mmol/L Chloride 103 (96-108) mmol/L Carbon Dioxide 29 (22-29) mmol/L Anion Gap 11 L (12-20) BUN 16 (9-16) mg/dL Creatinine 0.78 (0.5-1.4) mg/dL Estim Creat Clear Calc 74.2 Estimated GFR > 60 Random Glucose 98 (60-115) mg/dL Calcium 9.0 (8.4-10.2) mg/dL Total Bilirubin 0.4 (0.0-1.0) mg/dL Direct Bilirubin 0.2 (0.0-0.5) mg/dL AST 14 (5-37) U/L ALT 14 (0-40) U/L Alkaline Phosphatase 88 (39-117) U/L Troponin I High Sens < 2.7 (<3.5-35.0) ng/L B-Natriuretic Peptide 16 (<100) pg/mL Total Protein 5.8 L (6.5-8.0) g/dL Albumin 3.6 (3.5-5.0) g/dL Lipase 30 (8-78) U/L Independent Interpretation I performed an independent interpretation of an: CT Scan (Abdomen and pelvis:1. There is twisting of the mesentery in the right lower quadrant near the region of the distal ileum. There are distended colonic bowel loops and mildly dilated small bowel loops up to 4 cm. The findings are consistent with a small bowel obstruction probably related to small bow) Radiology Impression Discussion of test interpretation with radiology: I have reviewed the radiologist's reading. Medications Administered Discontinued Medications Generic Name Dose Route Start Last Admin Trade Name Freq PRN Reason Stop Dose Admin Sodium Chloride 1,000 mls @ 999 mls/hr 07/29/23 00:35 07/29/23 02:34 Ns IV 07/29/23 01:35 Infused .Q1H1M ONE Infusion Morphine Sulfate 1 mg 07/29/23 00:42 07/29/23 00:55 Morphine Sulfate 2 Mg/Ml Cartridge IVPUSH 07/29/23 00:43 1 mg ONCE ONE Administration Protocol Discharge Plan Discharge Clinical Impression: Volvulus Patient Disposition: Admitted As Inpatient Print Language: Thai
[2023-07-29 01:21] LABS: MANUAL DIFF FLAG NO
[2023-07-29 01:23] LABS: Basophils Percent Auto 0.3 % (0-2); Eosinophils Percent Auto 0.5 % (0-4); Hematocrit 38.3 % (42.0-52.0); Hemoglobin 13.1 g/dl (14.0-18.0); Imm Gran Abs Auto 0.03 X10*3/uL (0.00-0.03); Imm Gran Pct Auto 0.4 % (0.0-0.4); Lymphocytes Absolute Auto 0.7 X10*3/uL (1.2-4.9); Lymphocytes Percent Auto 9.6 % (20-40); Mean Corpuscular HGB Conc 34.2 g/dl (31.0-36.0); Mean Corpuscular Hemoglobin 30.5 pg (27.0-33.0); Mean Corpuscular Volume 89.3 fL (80.0-98.0); Mean Platelet Volume 10.9 fL (9.4-12.4); Monocytes Absolute Auto 0.7 X10*3/uL (0.1-1.2); Monocytes Percent Auto 9.7 % (2-11); Neutrophils Percent Auto 79.5 % (45-73); Platelet Count 181 X10*3/uL (160-400); Red Blood Count 4.29 X10*6/uL (4.60-5.80); Red Cell Distribution Width 13.5 % (11.0-16.0); White Blood Count 7.6 X10*3/uL (4.8-10.8)
[2023-07-29 01:37] LABS: Alanine Aminotransferase 14 U/L (0-40); Albumin Level 3.6 g/dL (3.5-5.0); Alkaline Phosphatase 88 U/L (39-117); Anion Gap 11 (12-20); Aspartate Amino Transferase 14 U/L (5-37); Bilirubin Direct 0.2 mg/dL (0.0-0.5); Bilirubin Total 0.4 mg/dL (0.0-1.0); Blood Urea Nitrogen 16 mg/dL (9-16); Carbon Dioxide 29 mmol/L (22-29); Chloride 103 mmol/L (96-108); Creatinine Clr Calc Pharmacy 74.2; Estimated Glomerular Filt Rate > 60; Glucose Random 98 mg/dL (60-115); Lipase 30 U/L (8-78); Potassium 3.9 mmol/L (3.3-5.1); Sodium 139 mmol/L (135-145); Total Protein 5.8 g/dL (6.5-8.0)
[2023-07-29 01:42] LABS: B Type Natriuretic Peptide 16 pg/mL (<100)
[2023-07-29 01:44] LABS: Troponin-I High Sensitivity < 2.7 ng/L (<3.5-35.0)
--- NOTE | 2023-07-29 02:40 | PC.NURSE ---
Addendum entered by Marty Adkins RN 07/29/23 04:59: pt reported nausea and dry heaving, medicated per MAR Addendum entered by Marty Adkins RN 07/29/23 04:11: pt medicated per May and severe pain Original Note: pt assessed for pain, pt reported a intermittent abd pain. declined any interventions at this time, warm blanket applied to pt abd
[2023-07-29 03:48] LABS: Appearance Urine Clear; Color Urine Yellow; Glucose Urine UA Negative (Negative); Leukocyte Esterase Urine Negative (Negative); Nitrite Urine Negative (Negative); PH 6.5 (5.0-9.0); Specific Gravity - Urine 1.015 (1.005-1.025); Urine Blood Negative (Negative); Urine Ketones Trace mg/dL (Negative); Urine Protein Negative (Neg-Trace)
[2023-07-29] MEDS: ondansetron HCL 4 MG/2 ML VIAL IVPUSH ×2 (04:05→21:48)
[2023-07-29] MEDS: HYDROmorphone HCl 1 MG/ML SYRINGE IVPUSH (04:05)
--- NOTE | 2023-07-29 04:06 | MHC.EDTECH ---
Belongings list done. Pt stated he had a significant amt of money on him. This was counted by this tech and Ghislaine Saenz. Pt has $1036.00 on him and will be keeping his wallet/money at bedside. Both ED Techs signed belongings list along with Pt himself.
[2023-07-29] MEDS: Metoclopramide HCl 10 MG/2 ML VIAL IVPUSH (04:55)
--- NOTE | 2023-07-29 07:25 | P.HPGS_ITS ---
History of Present Illness History of Present Illness Date of Service: 08/01/23 Chief complaint: Small bowel volvulus Narrative: Pardeep Cantrell is a 83 year old male known pulmonary fibrosis, here in the ER because of abdominal pain starting last night. He describes this as coming in waves, crampy may be severe. He also has had nausea all night but started to have a little bit of vomiting this morning He still passing flatus he says He denies any diarrhea. He says his pain has improved after getting some pain medications in the ER although he says this still comes in waves. He has a history of open Liset fundoplication 12 years ago. He has had left knee replacement as well. He is quite active and walks every day with his dog although uses a cane. He lives in an assisted living facility. Review of Systems Constitutional: Constitutional: Denies chills and Denies fever(s) Cardiovascular: Cardiovascular: Denies chest pain, Denies dyspnea and Reports dyspnea on exertion Respiratory: Respiratory: Reports cough, Denies dyspnea and Reports dyspnea on exertion Gastrointestinal: Gastrointestinal: Denies hematochezia and Denies change in bowel habits Genitourinary: Genitourinary: Denies hematuria, Denies difficulty urinating and Reports urinary frequency Musculoskeletal: Musculoskeletal: Reports abnormal gait, Reports back pain, Reports arthralgias and Denies limited range of motion Neurologic: Reports abnormal gait, Denies focal weakness and Denies conv ulsions Psychiatric: Psychiatric: Denies depression and Denies mood swings PMF Past Medical History Medical History (Updated 08/01/23 @ 13:49 by Erica Thurston NP) Hypotension Cecal volvulus Small bowel volvulus Family History Family History Other Substance use disorder Surgical History Surgical History History of back surgery History of rotator cuff surgery History of ear, nose, and throat (ENT) surgery History of left knee replacement Social History Social History Household Members: Spouse and Other Household Members Other:: independent living Housing: Apartment Alcohol intake: never Patient Tobacco Use Status: Former Tobacco user Smoked in Last 30 Days: No e-Cigarette/Vaping Use: Never Used Second Hand Smoke Exposure: No Use of substances other than those prescribed or required for medical reasons: No Currently Displaying Signs/Symptoms of Drug Intoxication Withdrawal: No Have you been hit, kicked, punched, or otherwise hurt by someone within the past year? If so, by whom?: No Do you feel safe in your current relationship?: Yes Are you DNR?: No Advance Directives: No Advance Directives Information Provided: Yes Advance Directives on File: No Do you have a plan to hurt others: No Plan Recently lost weight without trying: Unsure Nutrition Risks: No Nutritional Risk Poor oral hygiene: No service: No Current occupational status: retired Current occupational exposures/hazards: No Cognitive needs: No Hearing needs: Yes (hearing aides) Vision needs: No Meds Allergies Allergy/AdvReac Type Severity Reaction Status Date / Time No Known Allergies Allergy Verified 07/29/23 00:42 Home Medications ?Medication ?Instructions ?Recorded ?Confirmed ?Last Taken ?Type prednisone 10 mg tablet 10 mg PO QAM 07/29/23 07/29/23 Unknown History Physical Exam Vital Signs: Vital Signs: Last Vital Signs Temp 97.6 F 07/29/23 06:03 Pulse 63 07/29/23 06:03 Resp 16 07/29/23 06:03 BP 157/71 H 07/29/23 06:03 Pulse Ox 93 07/29/23 06:03 O2 Del Method Room Air 07/29/23 06:03 BMI result Body Mass Index 26.4 Const: Other: Appears uncomfortable General: No comfortable Orientation/consciousness: patient oriented x3 Neck: Neck: Yes no lymphadenopathy Resp: Auscultation: clear to auscultation bilaterally Cardio: Rhythm: regular rhythm GI: Other: Soft mildly distended with some tenderness in the right side Palpation (GI): Soft to palpation, Tenderness to palpation present (GI) and no guarding Neuro: General: patient oriented x3 Results Results Labs: Short CBC 07/29/23 Range/Units 00:57 WBC 7.6 (4.8-10.8) X10*3/uL Hgb 13.1 L (14.0-18.0) g/dl Hct 38.3 L (42.0-52.0) % Plt Count 181 (160-400) X10*3/uL [facility] 07/29/23 00:57 Sodium 139 Potassium 3.9 Chloride 103 Carbon Dioxide 29 BUN 16 Creatinine 0.78 Calcium 9.0 Liver Function 07/29/23 Range/Units 00:57 Total Bilirubin 0.4 (0.0-1.0) mg/dL Direct Bilirubin 0.2 (0.0-0.5) mg/dL AST 14 (5-37) U/L ALT 14 (0-40) U/L Alkaline Phosphatase 88 (39-117) U/L Albumin 3.6 (3.5-5.0) g/dL Urine 07/29/23 Range/Units 03:40 Urine Color Yellow Urine Appearance Clear Urine pH 6.5 (5.0-9.0) Ur Specific [place] 1.015 (1.005-1.025) Urine Protein Negative (Neg-Trace) mg/dL Urine Glucose (UA) Negative (Negative) mg/dL Abdomen CT scan report/results: report reviewed and image reviewed CT scan - pelvis: report reviewed and image reviewed Additional studies: Laboratory Results WBC 7.6 X10*3/uL (4.8-10.8) 07/29/23 00:57 RBC 4.29 X10*6/uL (4.60-5.80) L 07/29/23 00:57 Hgb 13.1 g/dl (14.0-18.0) L 07/29/23 00:57 Hct 38.3 % (42.0-52.0) L 07/29/23 00:57 MCV 89.3 fL (80.0-98.0) 07/29/23 00:57 MCH 30.5 pg (27.0-33.0) 07/29/23 00:57 MCHC 34.2 g/dl (31.0-36.0) 07/29/23 00:57 RDW 13.5 % (11.0-16.0) 07/29/23 00:57 Plt Count 181 X10*3/uL (160-400) 07/29/23 00:57 MPV 10.9 fL (9.4-12.4) 07/29/23 00:57 Immature Gran % (Auto) 0.4 % (0.0-0.4) 07/29/23 00:57 Neut % (Auto) 79.5 % (45-73) H 05/24/24 00:57 Lymph % (Auto) 9.6 % (20-40) L 07/29/23 00:57 [place] % (Auto) 9.7 % (2-11) 07/29/23 00:57 Eos % (Auto) 0.5 % (0-4) 07/29/23 00:57 Baso % (Auto) 0.3 % (0-2) 07/29/23 00:57 Lymph # (Auto) 0.7 X10*3/uL (1.2-4.9) L 07/29/23 00:57 [place] # (Auto) 0.7 X10*3/uL (0.1-1.2) 07/29/23 00:57 Eos # (Auto) 0.0 X10*3/uL (0.0-0.4) 07/29/23 00:57 Baso # (Auto) 0.0 X10*3/uL (0.0-0.2) 07/29/23 00:57 Abs Immat Gran (auto) 0.03 X10*3/uL (0.00-0.03) 07/29/23 00:57 Absolute Neuts (auto) 6.0 x10*3/uL (2.0-8.3) 07/29/23 00:57 Absolute Nucleated RBC 0.000 X10*3/uL (0.0-0.012) 07/29/23 00:57 Nucleated RBC % (auto) 0.0 /100WBC (0.0-0.2) 07/29/23 00:57 Sodium 139 mmol/L (135-145) 07/29/23 00:57 Potassium 3.9 mmol/L (3.3-5.1) 07/29/23 00:57 Chloride 103 mmol/L (96-108) 07/29/23 00:57 Carbon Dioxide 29 mmol/L (22-29) 07/29/23 00:57 Anion Gap 11 (12-20) L 07/29/23 00:57 BUN 16 mg/dL (9-16) 07/29/23 00:57 Creatinine 0.78 mg/dL (0.5-1.4) 07/29/23 00:57 Estim Creat Clear Calc 74.2 07/29/23 00:57 Estimated GFR > 60 07/29/23 00:57 Random Glucose 98 mg/dL (60-115) 07/29/23 00:57 Calcium 9.0 mg/dL (8.4-10.2) 07/29/23 00:57 Total Bilirubin 0.4 mg/dL (0.0-1.0) 07/29/23 00:57 Direct Bilirubin 0.2 mg/dL (0.0-0.5) 07/29/23 00:57 AST 14 U/L (5-37) 07/29/23 00:57 ALT 14 U/L (0-40) 07/29/23 00:57 Alkaline Phosphatase 88 U/L (39-117) 07/29/23 00:57 Troponin I High Sens < 2.7 ng/L (<3.5-35.0) 07/29/23 00:57 B-Natriuretic Peptide 16 pg/mL (<100) 07/29/23 00:57 Total Protein 5.8 g/dL (6.5-8.0) L 07/29/23 00:57 Albumin 3.6 g/dL (3.5-5.0) 07/29/23 00:57 Lipase 30 U/L (8-78) 07/29/23 00:57 Urine Color Yellow 07/29/23 03:40 Urine Appearance Clear 07/29/23 03:40 Urine pH 6.5 (5.0-9.0) 07/29/23 03:40 Ur Specific [place] 1.015 (1.005-1.025) 07/29/23 03:40 Urine Protein Negative mg/dL (Neg-Trace) 07/29/23 03:40 Urine Glucose (UA) Negative mg/dL (Negative) 07/29/23 03:40 Urine Ketones Trace mg/dL (Negative) 07/29/23 03:40 Urine Blood Negative (Negative) 07/29/23 03:40 Urine Nitrite Negative (Negative) 07/29/23 03:40 Ur Leukocyte Esterase Negative (Negative) 07/29/23 03:40 Impressions Abdomen/Pelvis CT 07/29/23 01:18 IMPRESSION: 1. There is twisting of the mesentery in the right lower quadrant near the region of the distal ileum. There are distended colonic bowel loops and mildly dilated small bowel loops up to 4 cm. The findings are consistent with a small bowel obstruction probably related to small bowel volvulus.. 2. There is diverticulosis of the colon without diverticulitis. 3. Status post cholecystectomy. 4. Interstitial coarsening at both lung bases. Fleischner guidelines were followed. Assessment and Plan (1) Small bowel volvulus: Status: Acute 83-year-old male, with known interstitial pulmonary fibrosis although not on oxygen, the abdominal pain starting last night. His CAT scan suggest small- bowel volvulus in the area of the distal ileum He continues to be uncomfortable and has had some nausea and vomiting here in the ER. His exam is benign. In view of the CT scan findings and his persistent discomfort, I told him it will be best to proceed with laparotomy on twist this volvulus and likely lyse adhesions. There is a small chance we may need to do a small-bowel resection I had a long discussion with him and his daughter Lucina about the technique of this procedure. I reviewed the risks including but not limited to bleeding, infections, injury to bowel and other organs, anastomotic leak, blood clots, pneumonia, respiratory failure especially in his background of pulmonary fibrosis, as well as the benefits and alternatives. He understands that nonoperative approach may result in persistent obstruction, ischemia and gangrene of a small bowel segment. (2) Cecal volvulus: Status: Acute Quality Stroke Does the patient have a stroke diagnosis?: No VTE Prior VTE?: No VTE Risk Level:: Medical - moderate - high VTE Device Contraindication: N/A - Device Ordered VTE Drug Contraindication: N/A - Med Ordered Procedures Date of Service Date of Service: 08/01/23
--- NOTE | 2023-07-29 08:39 | PC.NURSE ---
this nurse obtained report from overnight nurse- upon obtaining report, OR staff called obtained report and patient was sent to the OR shortly there after. This nurse had no interaction with patient as another critical patient came in at that time.
--- NOTE | 2023-07-29 09:13 | PHA.MEDREC ---
Pharmacy Consult ? Medication Reconciliation Pharmacy has completed the medication reconciliation. used claim history to verify medications. I called his specialty pharmacy to verify his Ofev: 100mg BID before meals. Per his specialty pharmacy, Patient reported yesterday that he is stopping it until he sees his provider in August, however they were not told when he last took it.
--- NOTE | 2023-07-29 10:49 | W.PM.OPN ---
Operative Note Operative Note Date of Service: 07/29/23 Narrative: Preop diagnosis: Small bowel volvulus Postop diagnosis: Cecal volvulus Procedure: Laparotomy, right colon resection Surgeon: Jose David Arana MD assistant professor of anthropology: HAMIDA Crenshaw The patient is 83-year-old male brought to the ER early this morning because of abdominal pain, nausea and vomiting. His CAT scan showed some swirling of the mesentery in the distal ileum history of volvulus. In view of this along with persistent symptoms, I recommended proceeding with laparotomy with likely bowel resection. He understood the technique of the procedure as well as the risks, benefits, and alternatives. He was brought to the operating room. He was placed supine under general anesthesia via endotracheal tube. A rectus sheath block was done by the anesthesiologist. A Palmer catheter was inserted. An NG tube was also placed . A surgical time-out was done. A midline laparotomy incision made in the skin with a blade 10. This was carried down with electrocautery through the full-thickness of the skin and subcutaneous fat down to the fascia. The fascia was incised and the peritoneum was entered. The Curiel retractor was placed on the right side. I proceeded to then inspect the small bowel loops and retracted these away from the right side of the abdomen. We are able to identify a very distended cecum. By tracing this, we noticed that this was volvulized a a long pedicle. We untwisted this cecum and this was noted to be very mobile and the mesentery was very long, extending past the pelvis when stretched. The cecum was markedly distended all the way to the mid right colon because of this closed loop obstruction. I then examined the rest of the small bowel starting from the proximal small bowel loops towards the jejunum all the way to the terminal ileum. There were no other pathology and there was no other area of obstruction. In view of this cecal volvulus with a very long mesentery, I deemed that this was likely to recur without resection. I therefore proceeded to resect this entire right colon and the distal ileum. I created a mesenteric window at the final ileum and used a THOMAS 60 mm stapler to divide this. I chose a segment in the very mobile distal right colon and created a mesenteric window here as well. This was transected with a THOMAS 60 mm stapler. I proceeded to then divide the attached mesentery of this long right colon and terminal ileum using the LigaSure. I completed the resection of this entire attached mesentery including the pedicles. This was sent as a specimen Oozing areas along the divided mesentery were controlled with ligation with Polysorb 3-0 ties. We then proceeded to do our [id number]-[id number] anastomosis. I align the anti mesenteric border of the stump of terminal ileum and the right colon. I opened up the edges with staple line to enter the lumen. I inserted positioned each arm of the THOMAS 60 mm stapler on the anti mesenteric margins. I made sure that there was no bowel loops caught between the staple lines and this was fired to create our [id number] anastomosis. I completed the anastomosis by closing the enterotomy with a TA 60 mm stapler. I felt the anastomosis in between my index finger and thumb and this was patent. I examined the staple lines and these all appeared to be intact. I placed a seromuscular stitch at the other apex of the staple line of the anastomosis to release any tension . I closed the mesenteric defect with running Polysorb 3-0 stitch. The anastomotic line appeared to be viable without any signs of ischemia or leak. I then re-examined the small bowel loops from proximal to distal and there was no other pathology or any injury I examined for hemostasis. Once hemostasis was confirmed, I proceeded to then placed all the bowel loops back into the peritoneal cavity I closed the fascia with a running Maxon 1 stitch. Skin closure was achieved with skin bora Dressings were applied. The procedure was completed The patient tolerated the procedure well. There were no immediate complications. Initial final counts of sponges and instruments were correct. Estimated blood loss was about 50 cc. The patient was extubated without difficulty and transferred to the recovery room with stable vital signs.
[2023-07-29] MEDS: Acetaminophen 1,000 MG/100 ML PIGGYBACK 400 MG IV ×2 (12:31→17:42)
[2023-07-29] MEDS: Lactated Ringers 1,000 ML 100 ML IVCONT ×2 (12:31→20:49)
[2023-07-29] MEDS: predniSONE 10 MG TABLET PO (13:23)
[2023-07-29] MEDS: Valsartan 40 MG TABLET PO ×2 (13:23→20:46)
[2023-07-29] MEDS: Atorvastatin Calcium 40 MG TABLET PO (13:24)
--- NOTE | 2023-07-29 13:24 | P.CONHOSP_ITS ---
History of Present Illness Data of Consult Service Date: 07/29/23 Primary Care Provider: Eugenio Lovett MD [facility] Reason for consult: Medical management The patient is an 83-year-old male with PMH significant HTN, idiopathic pulmonary fibrosis, and BPH who presented to the ED last night with abdominal pain and 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 Patient was admitted under general surgery services and underwent exploratory laparotomy for adhesion lysis and bowel resection. Hospitalist consult for medical management. Patient's BP has been elevated as high as 195/87 post-surgery. Patient seen and evaluated at bedside where he complains of minor lower abdominal pain. No nausea or vomiting. Has been started on clear liquid diet and tolerating a small amount of p.o. intake. Denies difficulty breathing. No chest pain/pressure, palpitations. Numbness or tingling in extremities. Reports has not started passing gas or having bowel movements yet. Review of Systems 2 Review of Systems: Minor lower abdominal pain No nausea or vomiting Denies passing gas or moving bowels yet No fever, chills Denies numbness or tingling in extremities No difficulty breathing, shortness of breath Denies chest pain/pressure, palpitations [facility] Medical History Cecal volvulus Small bowel volvulus Family History Other Substance use disorder Surgical History History of back surgery History of rotator cuff surgery History of ear, nose, and throat (ENT) surgery History of left knee replacement Social History Household Members: Spouse and Other Household Members Other:: independent living Housing: Apartment Alcohol intake: never Patient Tobacco Use Status: Former Tobacco user Smoked in Last 30 Days: No e-Cigarette/Vaping Use: Never Used Second Hand Smoke Exposure: No Use of substances other than those prescribed or required for medical reasons: No Have you been hit, kicked, punched, or otherwise hurt by someone within the past year? If so, by whom?: No Do you feel safe in your current relationship?: Yes Are you DNR?: No Advance Directives: No Advance Directives Information Provided: Yes Advance Directives on File: No Do you have a plan to hurt others: No Plan Recently lost weight without trying: Unsure Nutrition Risks: No Nutritional Risk Poor oral hygiene: No service: No Current occupational status: retired Current occupational exposures/hazards: No Cognitive needs: No Hearing needs: Yes (hearing aides) Vision needs: No Meds Allergies Allergy/AdvReac Type Severity Reaction Status Date / Time No Known Allergies Allergy Verified 07/29/23 00:42 Active Medications: Current Medications Atorvastatin Calcium (Atorvastatin Calcium 40 Mg Tablet) 40 mg PO DAILY [facility] Fentanyl (Fentanyl Citrate/Pf 100 Mcg/2 Ml Vial) 50 mcg IVPUSH Q5M PRN; Protocol PRN Reason: Pain, Severe (Pain Scale 7-10) Stop: 07/29/23 17:01 Gabapentin (Gabapentin 600 Mg Tablet) 600 mg PO TID [facility] Heparin Sodium (Porcine) (Heparin Sodium,Porcine 5,000 Unit/Ml Vial) 5,000 unit SUBCUT Q8H [facility] Hydromorphone HCl (Hydromorphone Hcl 0.5 Mg/0.5 Ml Syringe) 0.5 mg IVPUSH Q3H PRN; Protocol PRN Reason: Pain, Severe (Pain Scale 7-10) Lactated Ringer's (Lr) 1,000 mls @ 100 mls/hr IVCONT .Q10H [facility] Last Admin: 07/29/23 12:31 Dose: 100 mls/hr Acetaminophen (Ofirmev) 1,000 mg in 100 mls @ 400 mls/hr IV Q6H [facility] Last Infusion: 07/29/23 12:46 Dose: Infused Ondansetron HCl (Ondansetron Hcl 4 Mg/2 Ml Vial) 4 mg IVPUSH Q6H PRN PRN Reason: Nausea and Vomiting Oxycodone HCl (Oxycodone Hcl Immed Release 5 Mg Tablet) 10 mg PO Q6H PRN PRN Reason: Pain, Moderate(Pain Scale 4-6) Prednisone (Prednisone 10 Mg Tablet) 10 mg PO DAILY [facility] Promethazine HCl (Promethazine Hcl 25 Mg/Ml Vial) 12.5 mg IM Q6H PRN PRN Reason: Nausea and Vomiting Sodium Chloride (0.9 % Sodium Chloride Flush 3 Ml Syringe) 3 ml IVFLUSH QSHIFT [facility] Last Admin: 07/29/23 12:00 Dose: Not Given Tamsulosin HCl (Tamsulosin Hcl 0.4 Mg Capsule) 0.4 mg PO BEDTIME SUYAPA Valsartan (Valsartan 40 Mg Tablet) 40 mg PO BID SUYAPA; Protocol Home Medications ?Medication ?Instructions ?Recorded ?Confirmed ?Last Taken ?Type prednisone 10 mg tablet 10 mg PO QAM 07/29/23 07/29/23 Unknown History Physical Exam 2 Vital Signs and Narrative: Vital Signs: Last Vital Signs Temp 97.4 F 07/29/23 11:41 Pulse 61 07/29/23 11:41 Resp 22 H 07/29/23 11:41 BP 176/87 H 07/29/23 11:41 Pulse Ox 95 07/29/23 11:41 O2 Del Method Nasal Cannula 07/29/23 11:41 O2 Flow Rate 2 07/29/23 11:41 Oxygen Flow Rate 2 07/29/23 11:01 BMI result Body Mass Index 26.4 General: AOx3, no acute distress. Appears tired Resp: CTA bilaterally CVS: S1, S2, RRR. 2/6 murmur heard at left sternal border GI: +BS, no distention, appropriate abdominal tenderness at surgical sites Skin: Warm, dry Neuro: Cranial nerves II-XII grossly intact bilaterally. Motor grossly intact bilaterally Extremities: No edema Psych: Appropriate affect Results Labs 07/29/23 00:57 07/29/23 00:57 Labs: Laboratory Results - last 24 hr 07/29/23 07/29/23 07/29/23 00:57 03:40 08:25 MCV 89.3 MCH 30.5 MCHC 34.2 RDW 13.5 Plt Count 181 MPV 10.9 Immature Gran % (Auto) 0.4 Neut % (Auto) 79.5 H Lymph % (Auto) 9.6 L [place] % (Auto) 9.7 Eos % (Auto) 0.5 Baso % (Auto) 0.3 Lymph # (Auto) 0.7 L [place] # (Auto) 0.7 Eos # (Auto) 0.0 Baso # (Auto) 0.0 Abs Immat Gran (auto) 0.03 Absolute Neuts (auto) 6.0 Absolute Nucleated RBC 0.000 Nucleated RBC % (auto) 0.0 Anion Gap 11 L Estim Creat Clear Calc 74.2 Estimated GFR > 60 Random Glucose 98 Calcium 9.0 Total Bilirubin 0.4 Direct Bilirubin 0.2 AST 14 ALT 14 Alkaline Phosphatase 88 Troponin I High Sens < 2.7 B-Natriuretic Peptide 16 Total Protein 5.8 L Albumin 3.6 Lipase 30 Urine Color Yellow Urine Appearance Clear Urine pH 6.5 Ur Specific [place] 1.015 Urine Protein Negative Urine Glucose (UA) Negative Urine Ketones Trace Urine Blood Negative Urine Nitrite Negative Ur Leukocyte Esterase Negative Blood Type O Positive Antibody Screen NEGATIVE Imaging Radiologist's Impressions: Impressions Abdomen/Pelvis CT 07/29/23 01:18 IMPRESSION: 1. There is twisting of the mesentery in the right lower quadrant near the region of the distal ileum. There are distended colonic bowel loops and mildly dilated small bowel loops up to 4 cm. The findings are consistent with a small bowel obstruction probably related to small bowel volvulus.. 2. There is diverticulosis of the colon without diverticulitis. 3. Status post cholecystectomy. 4. Interstitial coarsening at both lung bases. Fleischner guidelines were followed. Assessment and Plan (1) Cecal volvulus: Status: Acute Plan The patient is an 83-year-old male with PMH significant HTN, HLD, idiopathic pulmonary fibrosis, and BPH who presented to the ED last night with abdominal pain and 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 Patient was admitted under general surgery services and underwent exploratory laparotomy for adhesion lysis and bowel resection. Hospitalist consult for medical management. Cecal volvulus s/p surgical resection Plan as per General surgery HTN Blood pressure elevated as high as 195/87 post surgery Will resume home antihypertensives Monitor BP closely Pulmonary fibrosis Satting at 99% on 1L NC Denies SOB or difficulty breathing Continue prednisone, gabapentin Not on home inhalers Incentive spirometry Titrate supplemental O2 >92, wean as tolerated HLD Continue statin Heart murmur 2/6 murmur heard at left sternal border Denies any significant cardiac history Asymptomatic: No lightheadedness or dizziness, chest pain/pressure, or palpitations Follow-up outpatient BPH Continue tamsulosin Thank you for allowing us to participate in the care of this patient. Will continue to follow along with you.
--- NOTE | 2023-07-29 13:50 | PM.EVENT ---
Event Note Date of Service: 07/29/23 Event Note: seen postop s/p right colon resection for cecal volvulus seems to have good pain control abd soft good UO hypertensive Hospitalist consulted pain mgt Palmer in place instructed on incentive spirometry doing well postop daughter Lucina in room Time Spent With Patient Time: Total time managing care of this patient today ____ minutes.
[2023-07-29] MEDS: Gabapentin 600 MG TABLET PO ×2 (15:37→20:46)
[2023-07-29] MEDS: hydrALAZINE HCl 20 MG/ML VIAL 5 MG IVPUSH (15:37)
[2023-07-29] MEDS: Tamsulosin HCL 0.4 MG CAPSULE PO (20:46)
[2023-07-30] VITALS (8 sets, daily range): BP systolic 143–162; BP diastolic 81–96; PULSE 62–72; RESP 16–18; TEMP 36.3–36.6; O2SAT 94–97
[2023-07-30] MEDS: Acetaminophen 1,000 MG/100 ML PIGGYBACK 400 MG IV ×3 (00:14→17:37)
[2023-07-30 06:36] LABS: Hematocrit 40.2 % (42.0-52.0); Hemoglobin 13.7 g/dl (14.0-18.0); Mean Corpuscular HGB Conc 34.1 g/dl (31.0-36.0); Mean Corpuscular Hemoglobin 30.2 pg (27.0-33.0); Mean Corpuscular Volume 88.7 fL (80.0-98.0); Mean Platelet Volume 11.1 fL (9.4-12.4); Platelet Count 195 X10*3/uL (160-400); Red Blood Count 4.53 X10*6/uL (4.60-5.80); Red Cell Distribution Width 13.3 % (11.0-16.0); White Blood Count 14.8 X10*3/uL (4.8-10.8)
[2023-07-30 06:50] LABS: Anion Gap 11 (12-20); Blood Urea Nitrogen 12 mg/dL (9-16); Calcium 9.1 mg/dL (8.4-10.2); Carbon Dioxide 30 mmol/L (22-29); Chloride 95 mmol/L (96-108); Creatinine Clr Calc Pharmacy 77.2; Estimated Glomerular Filt Rate > 60; Glucose Random 109 mg/dL (60-115); Potassium 4.1 mmol/L (3.3-5.1); Sodium 132 mmol/L (135-145)
[2023-07-30] MEDS: predniSONE 10 MG TABLET PO (08:43)
[2023-07-30] MEDS: Atorvastatin Calcium 40 MG TABLET PO (08:43)
[2023-07-30] MEDS: Gabapentin 600 MG TABLET PO ×3 (08:43→20:08)
[2023-07-30] MEDS: Valsartan 40 MG TABLET PO ×2 (08:43→20:08)
[2023-07-30] MEDS: Lactated Ringers 1,000 ML 100 ML IVCONT ×2 (08:46→18:00)
[2023-07-30] MEDS: Heparin Sodium,Porcine 5,000 UNIT/ML VIAL 5000 UNIT SUBCUT ×2 (10:36→17:37)
--- NOTE | 2023-07-30 15:34 | P.PNGS_ITS ---
Subjective Subjective Date of Service: 07/30/23 Interval history: Aside from incisional discomfort, patient had uneventful evening and morning. He is tolerating his liquids. H&H stable, electrolytes okay Physical Exam 2 Vital Signs: Vital Signs: Last Vital Signs Temp 97.8 F 07/30/23 15:13 Pulse 72 07/30/23 15:13 Resp 16 07/30/23 15:13 BP 143/81 H 07/30/23 15:13 Pulse Ox 94 07/30/23 15:13 O2 Del Method Room Air 07/30/23 15:13 O2 Flow Rate 1 07/30/23 03:59 Oxygen Flow Rate 1 07/30/23 11:01 BMI result Body Mass Index 26.4 GI: Other: Abdomen is soft. Dressing clean dry and intact. Objective Data Active Medications Atorvastatin Calcium (Atorvastatin Calcium 40 Mg Tablet) 40 mg PO DAILY [facility] Last Admin: 07/30/23 08:43 Dose: 40 mg Documented By: VERONIKA Gabapentin (Gabapentin 600 Mg Tablet) 600 mg PO TID [facility] Last Admin: 07/30/23 14:40 Dose: 600 mg Documented By: VERONIKA Heparin Sodium (Porcine) (Heparin Sodium,Porcine 5,000 Unit/Ml Vial) 5,000 unit SUBCUT Q8H [facility] Last Admin: 07/30/23 10:36 Dose: 5,000 unit Documented By: VERONIKA Hydromorphone HCl (Hydromorphone Hcl 0.5 Mg/0.5 Ml Syringe) 0.5 mg IVPUSH Q3H PRN; Protocol PRN Reason: Pain, Severe (Pain Scale 7-10) Lactated Ringer's (Lr) 1,000 mls @ 100 mls/hr IVCONT .Q10H [facility] Last Admin: 07/30/23 08:46 Dose: 100 mls/hr Documented By: VERONIKA Acetaminophen (Ofirmev) 1,000 mg in 100 mls @ 400 mls/hr IV Q6H [facility] Last Infusion: 07/30/23 11:49 Dose: Infused Documented By: VERONIKA Ondansetron HCl (Ondansetron Hcl 4 Mg/2 Ml Vial) 4 mg IVPUSH Q6H PRN PRN Reason: Nausea and Vomiting Last Admin: 07/29/23 21:48 Dose: 4 mg Documented By: ROLY Oxycodone HCl (Oxycodone Hcl Immed Release 5 Mg Tablet) 10 mg PO Q6H PRN PRN Reason: Pain, Moderate(Pain Scale 4-6) Prednisone (Prednisone 10 Mg Tablet) 10 mg PO DAILY [facility] Last Admin: 07/30/23 08:43 Dose: 10 mg Documented By: VERONIKA Promethazine HCl (Promethazine Hcl 25 Mg/Ml Vial) 12.5 mg IM Q6H PRN PRN Reason: Nausea and Vomiting Sodium Chloride (0.9 % Sodium Chloride Flush 3 Ml Syringe) 3 ml IVFLUSH QSHIFT [facility] Last Admin: 07/30/23 15:06 Dose: Not Given Documented By: VERONIKA Non-Admin Reason: IV Running Tamsulosin HCl (Tamsulosin Hcl 0.4 Mg Capsule) 0.4 mg PO BEDTIME [facility] Last Admin: 07/29/23 20:46 Dose: 0.4 mg Documented By: ROLY Valsartan (Valsartan 40 Mg Tablet) 40 mg PO BID [facility]; Protocol Last Admin: 07/30/23 08:43 Dose: 40 mg Documented By: VERONIKA Labs 07/30/23 06:07 07/30/23 06:07 Labs: Laboratory Results - last 24 hr 07/30/23 06:07 MCV 88.7 MCH 30.2 MCHC 34.1 RDW 13.3 Plt Count 195 MPV 11.1 Absolute Nucleated RBC 0.000 Nucleated RBC % (auto) 0.0 Anion Gap 11 L Estim Creat Clear Calc 77.2 Estimated GFR > 60 Random Glucose 109 Calcium 9.1 Procedures Date of Service Date of Service: 07/30/23 Progress Note: A&P Assessment and plan (1) Postop check: Status: Acute Plan Patient has been encouraged to get out of bed, incentive spirometry, liquids as tolerated for now. All questions answered. Time Spent With Patient Time: Total time managing care of this patient today ____ minutes. Quality Stroke Does the patient have a stroke diagnosis?: No VTE Prior VTE?: No VTE Risk Level:: Medical - moderate - high VTE Device Contraindication: N/A - Device Ordered VTE Drug Contraindication: N/A - Med Ordered
--- NOTE | 2023-07-30 15:42 | HO.POSTANES ---
Post Anesthesia Evaluation Post Anesthesia Evaluation Date of Service: 07/30/23 Vital Signs: Vital Signs Temp Pulse Resp BP Pulse Ox O2 Del Method O2 Flow Rate 07/30/23 15:13 97.8 F 72 16 143/81 H 94 Room Air 07/30/23 11:01 96 Nasal Cannula 07/30/23 08:43 162/96 H 07/30/23 07:38 97.3 F 63 18 162/96 H 97 Room Air 07/30/23 03:59 97.3 F 62 16 154/89 H 96 Nasal Cannula 1 Anesthesia: General Endotracheal-GETA Mental Status: Awake Pain Control: Satisfactory Nausea/Vomiting: None Hydration: Adequate Anesthesia-Related Issues: No Anes. Related Issues
--- NOTE | 2023-07-30 16:10 | MHC.CM.PN ---
PT REPORTS HE LIVES WITH HIS IN [facility]DEP[facility]ENT LIVING HE HAS NO SERVICES AND ONLY A NEBULIZER FOR DME PT STATES HE HAS A HCP, COPY REQUESTED PCP: BART THURSTON IMM DELIVERED DCP: HOME NO SERVICES VIA SELF ARRANGED TRANSPORT
[2023-07-30] MEDS: Tamsulosin HCL 0.4 MG CAPSULE PO (20:08)
--- NOTE | 2023-07-30 21:50 | PM.EVENT ---
Event Note Date of Service: 07/30/23 Event Note: The patient's blood pressure continues to remain elevated despite resuming home antihypertensives. Will add amlodipine 5 mg p.o. daily. Time Spent With Patient Time: Total time managing care of this patient today ____ minutes.
[2023-07-30] MEDS: amLODIPine Besylate 5 MG TABLET PO (23:00)
[2023-07-31] VITALS (7 sets, daily range): BP systolic 96–151; BP diastolic 57–86; PULSE 73–96; RESP 16–18; TEMP 36.3–36.9; O2SAT 92–96
[2023-07-31] MEDS: ondansetron HCL 4 MG/2 ML VIAL IVPUSH (01:40)
[2023-07-31] MEDS: Heparin Sodium,Porcine 5,000 UNIT/ML VIAL 5000 UNIT SUBCUT ×3 (01:41→17:31)
[2023-07-31] MEDS: Promethazine HCL 25 MG/ML VIAL 12.5 MG IM (03:53)
[2023-07-31] MEDS: Lactated Ringers 1,000 ML 100 ML IVCONT (03:57)
[2023-07-31] MEDS: Acetaminophen 1,000 MG/100 ML PIGGYBACK 400 MG IV ×2 (06:26→12:00)
--- NOTE | 2023-07-31 06:31 | PC.NURSE ---
pt was not feeling well tonight nauseous and vomiting small amount very uncomfortable abdomen more distended few bowel sounds states he did passed some gas ; zofran was given with little effect and phenergan im now resting more comfortable
[2023-07-31] MEDS: amLODIPine Besylate 5 MG TABLET PO (08:50)
[2023-07-31] MEDS: Atorvastatin Calcium 40 MG TABLET PO (08:51)
[2023-07-31] MEDS: Gabapentin 600 MG TABLET PO ×3 (08:51→21:48)
[2023-07-31] MEDS: Valsartan 40 MG TABLET PO (08:51)
[2023-07-31] MEDS: predniSONE 10 MG TABLET PO (08:51)
--- NOTE | 2023-07-31 14:10 | PM.PNGS ---
Subjective Subjective Date of Service: 07/31/23 Interval history: Patient required Phenergan last night but doing well this morning. Tolerating full liquid diet. Out of bed, using his incentive spirometry, minimal incisional discomfort. Physical Exam Vital Signs: Vital Signs: Last Vital Signs Temp 98.5 F 07/31/23 06:52 Pulse 75 07/31/23 06:52 Resp 16 07/31/23 06:52 BP 114/65 07/31/23 08:51 Pulse Ox 94 07/31/23 11:00 O2 Del Method Room Air 07/31/23 11:00 O2 Flow Rate 1 07/30/23 03:59 Oxygen Flow Rate 1 07/30/23 11:01 BMI result Body Mass Index 26.4 Const: Other: Patient was evaluated with daughter present GI: Other: Abdomen is soft. Incision clean dry and intact. Objective Data Active Medications Amlodipine Besylate (Amlodipine Besylate 5 Mg Tablet) 5 mg PO DAILY [facility]; Protocol Last Admin: 07/31/23 08:50 Dose: 5 mg Documented By: VERONIKA Atorvastatin Calcium (Atorvastatin Calcium 40 Mg Tablet) 40 mg PO DAILY [facility] Last Admin: 07/31/23 08:51 Dose: 40 mg Documented By: VERONIKA Gabapentin (Gabapentin 600 Mg Tablet) 600 mg PO TID [facility] Last Admin: 07/31/23 08:51 Dose: 600 mg Documented By: VERONIKA Heparin Sodium (Porcine) (Heparin Sodium,Porcine 5,000 Unit/Ml Vial) 5,000 unit SUBCUT Q8H [facility] Last Admin: 07/31/23 08:51 Dose: 5,000 unit Documented By: VERONIKA Hydromorphone HCl (Hydromorphone Hcl 0.5 Mg/0.5 Ml Syringe) 0.5 mg IVPUSH Q3H PRN; Protocol PRN Reason: Pain, Severe (Pain Scale 7-10) Acetaminophen (Ofirmev) 1,000 mg in 100 mls @ 400 mls/hr IV Q6H [facility] Last Infusion: 07/31/23 12:48 Dose: Infused Documented By: VERONIKA Ondansetron HCl (Ondansetron Hcl 4 Mg/2 Ml Vial) 4 mg IVPUSH Q6H PRN PRN Reason: Nausea and Vomiting Last Admin: 07/31/23 01:40 Dose: 4 mg Documented By: ROLY Oxycodone HCl (Oxycodone Hcl Immed Release 5 Mg Tablet) 10 mg PO Q6H PRN PRN Reason: Pain, Moderate(Pain Scale 4-6) Prednisone (Prednisone 10 Mg Tablet) 10 mg PO DAILY [facility] Last Admin: 07/31/23 08:51 Dose: 10 mg Documented By: VERONIKA Promethazine HCl (Promethazine Hcl 25 Mg/Ml Vial) 12.5 mg IM Q6H PRN PRN Reason: Nausea and Vomiting Last Admin: 07/31/23 03:53 Dose: 12.5 mg Documented By: ROLY Sodium Chloride (0.9 % Sodium Chloride Flush 3 Ml Syringe) 3 ml IVFLUSH QSHIFT [facility] Last Admin: 07/31/23 07:27 Dose: Not Given Documented By: VERONIKA Non-Admin Reason: IV Running Tamsulosin HCl (Tamsulosin Hcl 0.4 Mg Capsule) 0.4 mg PO BEDTIME [facility] Last Admin: 07/30/23 20:08 Dose: 0.4 mg Documented By: ROLY Valsartan (Valsartan 40 Mg Tablet) 40 mg PO BID [facility]; Protocol Last Admin: 07/31/23 08:51 Dose: 40 mg Documented By: VERONIKA Labs 07/30/23 06:07 07/30/23 06:07 Procedures Date of Service Date of Service: 07/31/23 Progress Note: A&P Assessment and plan (1) Postop check: Status: Acute (2) Cecal volvulus: Status: Acute Plan Encourage incentive spirometry, out of bed, diet as tolerated. Patient is still somewhat weak. All questions answered. Time Spent With Patient Time: Total time managing care of this patient today ____ minutes. Quality Stroke Does the patient have a stroke diagnosis?: No VTE Prior VTE?: No VTE Risk Level:: Medical - moderate - high VTE Device Contraindication: N/A - Device Ordered VTE Drug Contraindication: N/A - Med Ordered
[2023-07-31] MEDS: 0.9 % Sodium Chloride Flush 3 ML SYRINGE IVFLUSH ×2 (15:04→21:54)
[2023-07-31] MEDS: Tamsulosin HCL 0.4 MG CAPSULE PO (21:48)
[2023-08-01] VITALS (8 sets, daily range): BP systolic 83–131; BP diastolic 58–86; PULSE 91–114; RESP 16–20; TEMP 36.1–37.2; O2SAT 92–94
[2023-08-01] MEDS: Heparin Sodium,Porcine 5,000 UNIT/ML VIAL 5000 UNIT SUBCUT ×3 (02:51→17:31)
[2023-08-01] MEDS: Acetaminophen 1,000 MG/100 ML PIGGYBACK 400 MG IV ×3 (05:24→20:24)
--- NOTE | 2023-08-01 09:05 | HO.PM.IMPN ---
Subjective Subjective Date of Service: 08/01/23 Review of Systems Follow up consult, cecal volvulus, s/p ex lap and bowel resection Low BP today Physical Exam Vital Signs: Vital Signs: Last Vital Signs Temp 97.2 F 08/01/23 07:47 Pulse 99 08/01/23 07:47 Resp 18 08/01/23 07:47 BP 102/65 08/01/23 08:58 Pulse Ox 94 08/01/23 07:47 O2 Del Method Room Air 08/01/23 07:47 O2 Flow Rate 1 07/30/23 03:59 Oxygen Flow Rate 1 07/30/23 11:01 BMI result Body Mass Index 26.4 Appearing in no acute distress lung sounds are clear to auscultation heart regular rate rhythm, clear S1, S2 positive bowel sounds, abdomen is soft, nontender neuro patient is alert x3, no focal deficits Objective Data Active Medications Atorvastatin Calcium (Atorvastatin Calcium 40 Mg Tablet) 40 mg PO DAILY [facility] Last Admin: 07/31/23 08:51 Dose: 40 mg Documented By: VERONIKA Gabapentin (Gabapentin 600 Mg Tablet) 600 mg PO TID [facility] Last Admin: 07/31/23 21:48 Dose: 600 mg Documented By: ROLY Heparin Sodium (Porcine) (Heparin Sodium,Porcine 5,000 Unit/Ml Vial) 5,000 unit SUBCUT Q8H [facility] Last Admin: 08/01/23 02:51 Dose: 5,000 unit Documented By: ROLY Hydromorphone HCl (Hydromorphone Hcl 0.5 Mg/0.5 Ml Syringe) 0.5 mg IVPUSH Q3H PRN; Protocol PRN Reason: Pain, Severe (Pain Scale 7-10) Acetaminophen (Ofirmev) 1,000 mg in 100 mls @ 400 mls/hr IV Q6H [facility] Last Infusion: 08/01/23 06:02 Dose: Infused Documented By: ROLY Sodium Chloride (Ns) 1,000 mls @ 100 mls/hr IVCONT .Q10H [facility] Ondansetron HCl (Ondansetron Hcl 4 Mg/2 Ml Vial) 4 mg IVPUSH Q6H PRN PRN Reason: Nausea and Vomiting Last Admin: 07/31/23 01:40 Dose: 4 mg Documented By: ROLY Oxycodone HCl (Oxycodone Hcl Immed Release 5 Mg Tablet) 10 mg PO Q6H PRN PRN Reason: Pain, Moderate(Pain Scale 4-6) Prednisone (Prednisone 10 Mg Tablet) 10 mg PO DAILY [facility] Last Admin: 07/31/23 08:51 Dose: 10 mg Documented By: VERONIKA Promethazine HCl (Promethazine Hcl 25 Mg/Ml Vial) 12.5 mg IM Q6H PRN PRN Reason: Nausea and Vomiting Last Admin: 07/31/23 03:53 Dose: 12.5 mg Documented By: ROLY Sodium Chloride (0.9 % Sodium Chloride Flush 3 Ml Syringe) 3 ml IVFLUSH QSHIFT [facility] Last Admin: 07/31/23 21:54 Dose: 3 ml Documented By: ROLY Tamsulosin HCl (Tamsulosin Hcl 0.4 Mg Capsule) 0.4 mg PO BEDTIME [facility] Last Admin: 07/31/23 21:48 Dose: 0.4 mg Documented By: ROLY Valsartan (Valsartan 40 Mg Tablet) 40 mg PO BID [facility]; Protocol Last Admin: 07/31/23 08:51 Dose: 40 mg Documented By: VERONIKA Labs 08/01/23 09:44 08/01/23 09:44 Assessment and Plan (1) Cecal volvulus: Status: Acute (2) Hypotension: Status: Acute Plan 83-year-old male with PMH significant HTN, HLD, idiopathic pulmonary fibrosis, and BPH who presented to the ED last night with abdominal pain and 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 Patient was admitted under general surgery services and underwent exploratory laparotomy for adhesion lysis and bowel resection. Hospitalist consult for medical management. HTN with hypotension Blood pressure elevated as high as 195/87 post surgery but now hypotensive stop antihypertensives for now start IV fluids check labs and lactic acid no fever Cecal volvulus s/p surgical resection Plan as per General surgery Pulmonary fibrosis Satting at 99% on 1L NC Denies SOB or difficulty breathing Continue prednisone, gabapentin Not on home inhalers Incentive spirometry Titrate supplemental O2 >92, wean as tolerated HLD Continue statin BPH Continue tamsulosin DVT prophylaxis as per heparin full code Quality Stroke Does the patient have a stroke diagnosis?: No VTE Prior VTE?: No VTE Risk Level:: Medical - moderate - high VTE Device Contraindication: N/A - Device Ordered VTE Drug Contraindication: N/A - Med Ordered
[2023-08-01] MEDS: Atorvastatin Calcium 40 MG TABLET PO (09:12)
[2023-08-01] MEDS: 0.9 % Sodium Chloride Flush 3 ML SYRINGE IVFLUSH (09:12)
[2023-08-01] MEDS: predniSONE 10 MG TABLET PO (09:12)
[2023-08-01] MEDS: 0.9 % Sodium Chloride 1,000 ML 100 ML IVCONT ×2 (09:20→19:29)
--- NOTE | 2023-08-01 09:26 | PC.NURSE ---
Addendum entered by Michelle Sahni RN 08/01/23 11:49: Sumit made aware pt was able to ambulate to bathroom and had 1 loose brown/maroon tinged BM this shift. Blood pressure recheck 112/86. No new orders at this time. Original Note: Calibration Specialist Erica Thurston made aware pts BP 83/61, HR 99, BP recheck 102/58. IVF started Nacl 100 hr. Labs ordered. Per MACHINE [employer]ER hold Gabapentin dose this AM. General Surgeon Sumit also made aware of low BPs.
[2023-08-01 09:54] LABS: Hematocrit 42.9 % (42.0-52.0); Hemoglobin 14.5 g/dl (14.0-18.0); Mean Corpuscular HGB Conc 33.8 g/dl (31.0-36.0); Mean Corpuscular Hemoglobin 29.8 pg (27.0-33.0); Mean Corpuscular Volume 88.3 fL (80.0-98.0); Mean Platelet Volume 10.6 fL (9.4-12.4); Platelet Count 238 X10*3/uL (160-400); Red Blood Count 4.86 X10*6/uL (4.60-5.80); Red Cell Distribution Width 13.7 % (11.0-16.0); White Blood Count 13.9 X10*3/uL (4.8-10.8)
--- NOTE | 2023-08-01 10:08 | PM.PNGS ---
Subjective Subjective Date of Service: 08/02/23 Interval history: States that she is ?comfortable but weak? Passing flatus Has been taking full liquids Denies significant pain Physical Exam Vital Signs: Vital Signs: Last Vital Signs Temp 97.2 F 08/01/23 07:47 Pulse 99 08/01/23 07:47 Resp 18 08/01/23 07:47 BP 102/65 08/01/23 08:58 Pulse Ox 94 08/01/23 07:47 O2 Del Method Room Air 08/01/23 07:47 O2 Flow Rate 1 07/30/23 03:59 Oxygen Flow Rate 1 07/30/23 11:01 BMI result Body Mass Index 26.4 Const: General: comfortable and no acute distress Resp: Effort & Inspection: normal respiratory effort Cardio: Rate: regular rate GI: Other: Distended but soft, no guarding, rebound, incision dry Palpation (GI): Soft to palpation Objective Data Active Medications Atorvastatin Calcium (Atorvastatin Calcium 40 Mg Tablet) 40 mg PO DAILY [facility] Last Admin: 08/01/23 09:12 Dose: 40 mg Documented By: RUT Gabapentin (Gabapentin 600 Mg Tablet) 600 mg PO TID [facility] Last Admin: 08/01/23 09:26 Dose: Not Given Documented By: RUT Non-Admin Reason: hold per HEAD OF [employer]MENT [employer] INSIGHTS Erica Whyte Heparin Sodium (Porcine) (Heparin Sodium,Porcine 5,000 Unit/Ml Vial) 5,000 unit SUBCUT Q8H [facility] Last Admin: 08/01/23 09:12 Dose: 5,000 unit Documented By: RUT Hydromorphone HCl (Hydromorphone Hcl 0.5 Mg/0.5 Ml Syringe) 0.5 mg IVPUSH Q3H PRN; Protocol PRN Reason: Pain, Severe (Pain Scale 7-10) Acetaminophen (Ofirmev) 1,000 mg in 100 mls @ 400 mls/hr IV Q6H [facility] Last Infusion: 08/01/23 06:02 Dose: Infused Documented By: ROLY Sodium Chloride (Ns) 1,000 mls @ 100 mls/hr IVCONT .Q10H [facility] Last Admin: 08/01/23 09:20 Dose: 100 mls/hr Documented By: RUT Ondansetron HCl (Ondansetron Hcl 4 Mg/2 Ml Vial) 4 mg IVPUSH Q6H PRN PRN Reason: Nausea and Vomiting Last Admin: 07/31/23 01:40 Dose: 4 mg Documented By: ROLY Oxycodone HCl (Oxycodone Hcl Immed Release 5 Mg Tablet) 10 mg PO Q6H PRN PRN Reason: Pain, Moderate(Pain Scale 4-6) Prednisone (Prednisone 10 Mg Tablet) 10 mg PO DAILY [facility] Last Admin: 08/01/23 09:12 Dose: 10 mg Documented By: RUT Promethazine HCl (Promethazine Hcl 25 Mg/Ml Vial) 12.5 mg IM Q6H PRN PRN Reason: Nausea and Vomiting Last Admin: 07/31/23 03:53 Dose: 12.5 mg Documented By: ROLY Sodium Chloride (0.9 % Sodium Chloride Flush 3 Ml Syringe) 3 ml IVFLUSH QSHIFT [facility] Last Admin: 08/01/23 09:12 Dose: 3 ml Documented By: RUT Tamsulosin HCl (Tamsulosin Hcl 0.4 Mg Capsule) 0.4 mg PO BEDTIME [facility] Last Admin: 07/31/23 21:48 Dose: 0.4 mg Documented By: ROLY Valsartan (Valsartan 40 Mg Tablet) 40 mg PO BID [facility]; Protocol Last Admin: 07/31/23 08:51 Dose: 40 mg Documented By: VERONIKA Labs 08/01/23 09:44 08/01/23 09:44 Labs: Laboratory Results - last 24 hr 08/01/23 09:44 MCV 88.3 MCH 29.8 MCHC 33.8 RDW 13.7 Plt Count 238 MPV 10.6 Absolute Nucleated RBC 0.000 Nucleated RBC % (auto) 0.0 Procedures Date of Service Date of Service: 08/02/23 Progress Note: A&P Assessment and plan (1) Cecal volvulus: Status: Acute Assessment and Plan: Status post right colon resection Clinically doing well On regular diet Passing flatus No bowel movement yet Encouraged to ambulate Physical therapy to evaluate patient May need to be in rehab or SNF Discussed above with daughter Lucina Time Spent With Patient Time: Total time managing care of this patient today ____ minutes. Quality Stroke Does the patient have a stroke diagnosis?: No VTE Prior VTE?: No VTE Risk Level:: Medical - moderate - high VTE Device Contraindication: N/A - Device Ordered VTE Drug Contraindication: N/A - Med Ordered
[2023-08-01 10:12] LABS: Anion Gap 15 (12-20); Blood Urea Nitrogen 30 mg/dL (9-16); Calcium 9.9 mg/dL (8.4-10.2); Carbon Dioxide 26 mmol/L (22-29); Chloride 93 mmol/L (96-108); Creatinine Clr Calc Pharmacy 55.7; Estimated Glomerular Filt Rate > 60; Glucose Random 100 mg/dL (60-115); Lactic Acid 0.9 mmol/L (0.5-2.0); Potassium 3.9 mmol/L (3.3-5.1); Sodium 130 mmol/L (135-145)
[2023-08-01] MEDS: ondansetron HCL 4 MG/2 ML VIAL IVPUSH (10:49)
--- NOTE | 2023-08-01 11:56 | PC.NURSE ---
Zofran given at 10:49 for nausea with good effect per pt.
--- NOTE | 2023-08-01 14:40 | PM.EVENT ---
Event Note Date of Service: 08/01/23 Event Note: states he got nauseous after lunch also, refusing to take narcotics for pain abd soft ambulated passing flatus, had BMs today will reorder Ofirmev will put back on clears ambulate, OOB more looks well otherwise family at bedside Time Spent With Patient Time: Total time managing care of this patient today ____ minutes.
[2023-08-01] MEDS: Gabapentin 600 MG TABLET PO ×2 (14:41→20:24)
[2023-08-01] MEDS: Promethazine HCL 25 MG/ML VIAL 12.5 MG IM (14:41)
[2023-08-01] MEDS: oxyCODONE HCl Immed Release 5 MG TABLET 10 MG PO ×2 (14:48→20:23)
[2023-08-01] MEDS: Tamsulosin HCL 0.4 MG CAPSULE PO (20:24)
[2023-08-02] MEDS: Acetaminophen 1,000 MG/100 ML PIGGYBACK 400 MG IV ×2 (02:13→07:46)
[2023-08-02] MEDS: Heparin Sodium,Porcine 5,000 UNIT/ML VIAL 5000 UNIT SUBCUT ×3 (02:14→17:04)
[2023-08-02 03:52] VITALS: BP 121/60; PULSE 84; RESP 18; TEMP 36.4; O2SAT 90
[2023-08-02] MEDS: 0.9 % Sodium Chloride 1,000 ML 100 ML IVCONT ×2 (05:15→14:34)
[2023-08-02 06:57] VITALS: BP 144/77; PULSE 101; RESP 16; TEMP 36.6; O2SAT 93
[2023-08-02] MEDS: Atorvastatin Calcium 40 MG TABLET PO (07:46)
[2023-08-02] MEDS: Gabapentin 600 MG TABLET PO ×3 (07:46→21:15)
[2023-08-02] MEDS: predniSONE 10 MG TABLET PO (07:46)
[2023-08-02] MEDS: 0.9 % Sodium Chloride Flush 3 ML SYRINGE IVFLUSH ×2 (07:47→16:48)
--- NOTE | 2023-08-02 08:05 | PM.PNGS ---
Subjective Subjective Date of Service: 08/02/23 <Tata Crenshaw PA-C - Last Filed: 08/02/23 08:08> 08/02/23 <Jose David Arana MD - Last Filed: 08/02/23 08:22> Interval history: Some nausea today but overall better. Still feels a little bloated. Took some oxycodone yesterday with improvement in pain. Had two liquid BMs overnight but reports not much flatus. <Tata Crenshaw PA-C - Last Filed: 08/02/23 08:08> Physical Exam Vital Signs: Vital Signs: Last Vital Signs Temp 98 F 08/02/23 06:57 Pulse 101 H 08/02/23 06:57 Resp 16 08/02/23 06:57 BP 144/77 H 08/02/23 06:57 Pulse Ox 93 08/02/23 06:57 O2 Del Method Room Air 08/02/23 06:57 O2 Flow Rate 1 07/30/23 03:59 Oxygen Flow Rate 1 07/30/23 11:01 BMI result Body Mass Index 26.4 <Tata Crenshaw PA-C - Last Filed: 08/02/23 08:08> Const: General: comfortable, no acute distress and alert <SHELIA Dc Last Filed: 08/02/23 08:08> Orientation/consciousness: patient oriented x3 <SHELIA Dc Last Filed: 08/02/23 08:08> Resp: Effort & Inspection: normal respiratory effort <SHELIA Dc Last Filed: 08/02/23 08:08> GI: Inspection: Yes distended and Yes incision (clean) <SHELIA Dc Last Filed: 08/02/23 08:08> Palpation (GI): Soft to palpation, Tenderness to palpation present (GI) (mild, incisional) and no guarding <SHELIA Dc Last Filed: 08/02/23 08:08> Percussion: Yes tympanic to percussion <SHELIA Dc Last Filed: 08/02/23 08:08> Skin: General skin exam: no rashes or lesions noted <Tata Crenshaw PA-C - Last Filed: 08/02/23 08:08> Neuro: General: patient oriented x3 <Tata Crenshaw PA-C - Last Filed: 08/02/23 08:08> Objective Data Active Medications Atorvastatin Calcium (Atorvastatin Calcium 40 Mg Tablet) 40 mg PO DAILY [facility] Last Admin: 08/02/23 07:46 Dose: 40 mg Documented By: RUT Gabapentin (Gabapentin 600 Mg Tablet) 600 mg PO TID [facility] Last Admin: 08/02/23 07:46 Dose: 600 mg Documented By: RUT Heparin Sodium (Porcine) (Heparin Sodium,Porcine 5,000 Unit/Ml Vial) 5,000 unit SUBCUT Q8H [facility] Last Admin: 08/02/23 02:14 Dose: 5,000 unit Documented By: YEISON Hydromorphone HCl (Hydromorphone Hcl 0.5 Mg/0.5 Ml Syringe) 0.5 mg IVPUSH Q3H PRN; Protocol PRN Reason: Pain, Severe (Pain Scale 7-10) Sodium Chloride (Ns) 1,000 mls @ 100 mls/hr IVCONT .Q10H [facility] Last Admin: 08/02/23 05:15 Dose: 100 mls/hr Documented By: YEISON Acetaminophen (Ofirmev) 1,000 mg in 100 mls @ 400 mls/hr IV Q6H [facility] Stop: 08/02/23 09:14 Last Admin: 08/02/23 07:46 Dose: 400 mls/hr Documented By: RUT Ondansetron HCl (Ondansetron Hcl 4 Mg/2 Ml Vial) 4 mg IVPUSH Q6H PRN PRN Reason: Nausea and Vomiting Last Admin: 08/01/23 10:49 Dose: 4 mg Documented By: RUT Oxycodone HCl (Oxycodone Hcl Immed Release 5 Mg Tablet) 10 mg PO Q6H PRN PRN Reason: Pain, Moderate(Pain Scale 4-6) Last Admin: 08/01/23 20:23 Dose: 10 mg Documented By: CARMEL Prednisone (Prednisone 10 Mg Tablet) 10 mg PO DAILY [facility] Last Admin: 08/02/23 07:46 Dose: 10 mg Documented By: RUT Promethazine HCl (Promethazine Hcl 25 Mg/Ml Vial) 12.5 mg IM Q6H PRN PRN Reason: Nausea and Vomiting Last Admin: 08/01/23 14:41 Dose: 12.5 mg Documented By: RUT Sodium Chloride (0.9 % Sodium Chloride Flush 3 Ml Syringe) 3 ml IVFLUSH QSHIFT [facility] Last Admin: 08/02/23 07:47 Dose: 3 ml Documented By: RUT Tamsulosin HCl (Tamsulosin Hcl 0.4 Mg Capsule) 0.4 mg PO BEDTIME [facility] Last Admin: 08/01/23 20:24 Dose: 0.4 mg Documented By: CARMEL Valsartan (Valsartan 40 Mg Tablet) 40 mg PO BID [facility]; Protocol Last Admin: 07/31/23 08:51 Dose: 40 mg Documented By: VERONIKA <Tata Crenshaw PA-C - Last Filed: 08/02/23 08:08> Labs CBC & Chem 7: 08/01/23 09:44 08/01/23 09:44 <Tata Crenshaw PA-C - Last Filed: 08/02/23 08:08> Labs: Laboratory Results - last 24 hr 08/01/23 09:44 MCV 88.3 MCH 29.8 MCHC 33.8 RDW 13.7 Plt Count 238 MPV 10.6 Absolute Nucleated RBC 0.000 Nucleated RBC % (auto) 0.0 Anion Gap 15 Estim Creat Clear Calc 55.7 Estimated GFR > 60 Random Glucose 100 Lactic Acid 0.9 Calcium 9.9 D <Tata Crenshaw PA-C - Last Filed: 08/02/23 08:08> Procedures Date of Service Date of Service: 08/02/23 <Tata Crenshaw PA-C - Last Filed: 08/02/23 08:08> 08/02/23 <Jose David Arana MD - Last Filed: 08/02/23 08:22> Progress Note: A&P Assessment and plan (1) Cecal volvulus: Status: Acute <Tata Crenshaw PA-C - Last Filed: 08/02/23 08:08> Assessment and Plan: says he is ok passing flatus had some Bms feels bloated abd mildly distended but soft clinically looks well keep on clears, poss. advance later seen and examined independently <Jose David Arana MD - Last Filed: 08/02/23 08:22> Assessment and Plan: POD #4 s/p Laparotomy, right colon resection for cecal volvulus. Remains distended with some nausea this morning, but some evidence of GI function. Will keep on clears. Encouraged OOB/ambulation and increasing activity. PT consult. Cont IVF until PO intake increased. Remains tachycardic, ?volume depleted had slight CRISTINA yesterday. Hospitalists following. <Tata Crenshaw PA-C - Last Filed: 08/02/23 08:08> Time Spent With Patient Time: Total time managing care of this patient today ____ minutes. <Tata Crenshaw PA-C - Last Filed: 08/02/23 08:08> Quality Stroke Does the patient have a stroke diagnosis?: No <Tata Crenshaw PA-C - Last Filed: 08/02/23 08:08> VTE Prior VTE?: No <Tata Crenshaw PA-C - Last Filed: 08/02/23 08:08> VTE Risk Level:: Medical - moderate - high <SHELIA Dc Last Filed: 08/02/23 08:08> VTE Device Contraindication: N/A - Device Ordered <Tata Crenshaw PA-C - Last Filed: 08/02/23 08:08> VTE Drug Contraindication: N/A - Med Ordered <SHELIA Dc Last Filed: 08/02/23 08:08>
[2023-08-02 08:07] VITALS: BP 144/77; PULSE 101; O2SAT 93
[2023-08-02 14:58] VITALS: BP 111/63; PULSE 97; RESP 20; TEMP 36.2; O2SAT 98
--- NOTE | 2023-08-02 15:19 | PM.EVENT ---
Event Note Date of Service: 08/02/23 Event Note: feels better this afternoon minimal pain passing flatus has ambulated abd soft retry regular diet looks well family at bedside Time Spent With Patient Time: Total time managing care of this patient today ____ minutes.
[2023-08-02] MEDS: oxyCODONE HCl Immed Release 5 MG TABLET 10 MG PO (16:48)
[2023-08-02 19:26] VITALS: BP 126/62; PULSE 84; RESP 18; TEMP 37.4; O2SAT 90
[2023-08-02] MEDS: Tamsulosin HCL 0.4 MG CAPSULE PO (21:15)
[2023-08-03] MEDS: 0.9 % Sodium Chloride 1,000 ML 100 ML IVCONT ×3 (00:20→21:46)
[2023-08-03 02:49] VITALS: BP 137/68; PULSE 72; RESP 18; TEMP 36.9; O2SAT 92
[2023-08-03] MEDS: Heparin Sodium,Porcine 5,000 UNIT/ML VIAL 5000 UNIT SUBCUT ×3 (03:24→17:42)
[2023-08-03 07:36] VITALS: BP 137/68; PULSE 72; O2SAT 92
[2023-08-03 07:44] VITALS: BP 150/88; PULSE 109; RESP 17; TEMP 36.6; O2SAT 96
[2023-08-03] MEDS: Atorvastatin Calcium 40 MG TABLET PO (08:11)
[2023-08-03] MEDS: predniSONE 10 MG TABLET PO (08:11)
[2023-08-03] MEDS: Gabapentin 600 MG TABLET PO ×3 (08:11→21:50)
--- NOTE | 2023-08-03 08:42 | P.PNGS_ITS ---
Subjective Subjective Date of Service: 08/04/23 Interval history: Feels ?okay? Says oral intake is minimal Denies nausea or vomiting Has flatus Complains of incisional pain Physical Exam 2 Vital Signs: Vital Signs: Last Vital Signs Temp 97.8 F 08/03/23 07:44 Pulse 109 H 08/03/23 07:44 Resp 17 08/03/23 07:44 BP 150/88 H 08/03/23 07:44 Pulse Ox 96 08/03/23 07:44 O2 Del Method Room Air 08/03/23 07:44 O2 Flow Rate 1 07/30/23 03:59 Oxygen Flow Rate 1 07/30/23 11:01 BMI result Body Mass Index 26.4 Const: Other: Sitting on recliner General: comfortable and no acute distress Resp: Effort & Inspection: normal respiratory effort Cardio: Rhythm: regular rhythm GI: Other: Mildly distended but soft, incision clean and dry Palpation (GI): not firm and no guarding Objective Data Active Medications Atorvastatin Calcium (Atorvastatin Calcium 40 Mg Tablet) 40 mg PO DAILY [facility] Last Admin: 08/03/23 08:11 Dose: 40 mg Documented By: DELMA Gabapentin (Gabapentin 600 Mg Tablet) 600 mg PO TID [facility] Last Admin: 08/03/23 08:11 Dose: 600 mg Documented By: DELMA Guaifenesin/Codeine Phosphate (Guaifen/Codeine Sf 200/20/10ml 10 Ml Liquid) 5 ml PO Q4H PRN PRN Reason: Cough Heparin Sodium (Porcine) (Heparin Sodium,Porcine 5,000 Unit/Ml Vial) 5,000 unit SUBCUT Q8H [facility] Last Admin: 08/03/23 03:24 Dose: 5,000 unit Documented By: ALFREDO Hydromorphone HCl (Hydromorphone Hcl 0.5 Mg/0.5 Ml Syringe) 0.5 mg IVPUSH Q3H PRN; Protocol PRN Reason: Pain, Severe (Pain Scale 7-10) Sodium Chloride (Ns) 1,000 mls @ 100 mls/hr IVCONT .Q10H [facility] Last Admin: 08/03/23 00:20 Dose: 100 mls/hr Documented By: ALFREDO Ondansetron HCl (Ondansetron Hcl 4 Mg/2 Ml Vial) 4 mg IVPUSH Q6H PRN PRN Reason: Nausea and Vomiting Last Admin: 08/01/23 10:49 Dose: 4 mg Documented By: RUT Oxycodone HCl (Oxycodone Hcl Immed Release 5 Mg Tablet) 10 mg PO Q6H PRN PRN Reason: Pain, Moderate(Pain Scale 4-6) Last Admin: 08/02/23 16:48 Dose: 10 mg Documented By: RUT Prednisone (Prednisone 10 Mg Tablet) 10 mg PO DAILY [facility] Last Admin: 08/03/23 08:11 Dose: 10 mg Documented By: DELMA Promethazine HCl (Promethazine Hcl 25 Mg/Ml Vial) 12.5 mg IM Q6H PRN PRN Reason: Nausea and Vomiting Last Admin: 08/01/23 14:41 Dose: 12.5 mg Documented By: RUT Sodium Chloride (0.9 % Sodium Chloride Flush 3 Ml Syringe) 3 ml IVFLUSH QSHIFT [facility] Last Admin: 08/03/23 08:14 Dose: Not Given Documented By: DELMA Non-Admin Reason: IV Running Tamsulosin HCl (Tamsulosin Hcl 0.4 Mg Capsule) 0.4 mg PO BEDTIME [facility] Last Admin: 08/02/23 21:15 Dose: 0.4 mg Documented By: ALFREDO Valsartan (Valsartan 40 Mg Tablet) 40 mg PO BID [facility]; Protocol Last Admin: 07/31/23 08:51 Dose: 40 mg Documented By: VERONIKA Labs 08/01/23 09:44 08/03/23 09:47 Procedures Date of Service Date of Service: 08/04/23 Progress Note: A&P Assessment and plan (1) Cecal volvulus: Status: Acute Assessment and Plan: Status post right colon resection Clinically doing On regular diet but intake minimal Encourage ambulation Recheck lytes for hyponatremia Describes loose stools - check C diff Pain management Seen by Physical therapy Plan is to DC home when oral intake and diarrhea better Time Spent With Patient Time: Total time managing care of this patient today ____ minutes. Quality Stroke Does the patient have a stroke diagnosis?: No VTE Prior VTE?: No VTE Risk Level:: Medical - moderate - high VTE Device Contraindication: N/A - Device Ordered VTE Drug Contraindication: N/A - Med Ordered
--- NOTE | 2023-08-03 09:09 | MHC.CM.PN ---
Addendum entered by Lana Maurice RN 08/03/23 11:13: Per surgical PA no SN will be ordered, just home PT. [facility] has accepted. CM will continue to follow. Original Note: PT recommending home w/ services. CM met with patient and son in law at bedside to discuss. They are agreeable to plan and prefer [facility]. Referral sent via [facility]. CM will continue to follow.
[2023-08-03 10:09] LABS: Anion Gap 11 (12-20); Blood Urea Nitrogen 22 mg/dL (9-16); Calcium 8.5 mg/dL (8.4-10.2); Carbon Dioxide 22 mmol/L (22-29); Chloride 106 mmol/L (96-108); Creatinine Clr Calc Pharmacy 70.6; Estimated Glomerular Filt Rate > 60; Glucose Random 106 mg/dL (60-115); Potassium 3.8 mmol/L (3.3-5.1); Sodium 135 mmol/L (135-145)
[2023-08-03 14:35] LABS: CDiff Gene PCR POSITIVE (Negative)
[2023-08-03] MEDS: Acetaminophen 325 MG TABLET 650 MG PO (14:59)
[2023-08-03] MEDS: ondansetron HCL 4 MG/2 ML VIAL IVPUSH (14:59)
[2023-08-03 15:26] LABS: CDIFF Internal ctrl Dots and bkg OK (V); CDiff Toxin Negative (Negative)
[2023-08-03 15:42] VITALS: BP 155/72; PULSE 109; RESP 18; TEMP 37.2; O2SAT 95
--- NOTE | 2023-08-03 16:30 | PM.EVENT ---
Event Note Date of Service: 08/03/23 Event Note: has had loose stools C diff - positive on PCR test explained above to pt he looks well abd soft dw Hospitalist - to start on PO VAnco diet as tolerated kelli daughter Lucina Time Spent With Patient Time: Total time managing care of this patient today ____ minutes.
[2023-08-03] MEDS: vancomycin HCL 125 MG CAPSULE PO ×2 (17:42→23:12)
[2023-08-03 20:00] VITALS: BP 144/77; PULSE 96; RESP 16; TEMP 36.5; O2SAT 93
[2023-08-03] MEDS: 0.9 % Sodium Chloride Flush 3 ML SYRINGE IVFLUSH (21:50)
[2023-08-03] MEDS: Tamsulosin HCL 0.4 MG CAPSULE PO (21:50)
[2023-08-04] MEDS: Heparin Sodium,Porcine 5,000 UNIT/ML VIAL 5000 UNIT SUBCUT ×3 (01:37→16:53)
[2023-08-04] MEDS: Acetaminophen 325 MG TABLET 650 MG PO (01:42)
[2023-08-04 04:00] VITALS: BP 144/75; PULSE 82; RESP 16; TEMP 36.3; O2SAT 94
[2023-08-04] MEDS: vancomycin HCL 125 MG CAPSULE PO ×4 (05:37→23:10)
[2023-08-04 07:30] VITALS: BP 148/87; PULSE 94; RESP 18; TEMP 36.4; O2SAT 96
--- NOTE | 2023-08-04 07:57 | P.PNGS_ITS ---
Subjective Subjective Date of Service: 08/04/23 <Tata Crenshaw PA-C - Last Filed: 08/04/23 08:02> 08/04/23 <Jose David Arana MD - Last Filed: 08/04/23 08:04> Interval history: Feels somewhat better this morning. Continues to have loose stools. Pain minimal at incision site. Denies nausea. PO intake remains marginal. <Tata Crenshaw PA-C - Last Filed: 08/04/23 08:02> Physical Exam 2 Vital Signs: Vital Signs: Last Vital Signs Temp 97.5 F 08/04/23 07:30 Pulse 94 08/04/23 07:30 Resp 18 08/04/23 07:30 BP 148/87 H 08/04/23 07:30 Pulse Ox 96 08/04/23 07:30 O2 Del Method Room Air 08/04/23 07:30 O2 Flow Rate 1 07/30/23 03:59 Oxygen Flow Rate 1 07/30/23 11:01 BMI result Body Mass Index 26.4 <Tata Crenshaw PA-C - Last Filed: 08/04/23 08:02> Const: General: comfortable, no acute distress and alert <Tata Crenshaw PA-C - Last Filed: 08/04/23 08:02> Orientation/consciousness: patient oriented x3 <Tata Crenshaw PA-C - Last Filed: 08/04/23 08:02> Resp: Effort & Inspection: normal respiratory effort <Tata Crenshaw PA-C - Last Filed: 08/04/23 08:02> GI: Inspection: Yes distended and Yes incision (clean) <Tata Crenshaw PA-C - Last Filed: 08/04/23 08:02> Palpation (GI): Soft to palpation, Tenderness to palpation present (GI) (minimal) and no guarding <SHELIA Dc Last Filed: 08/04/23 08:02> Percussion: Yes tympanic to percussion <SHELIA Dc Last Filed: 08/04/23 08:02> Skin: General skin exam: no rashes or lesions noted <Tata Crenshaw PA-C - Last Filed: 08/04/23 08:02> Neuro: General: patient oriented x3 <Tata Crenshaw PA-C - Last Filed: 08/04/23 08:02> Objective Data Active Medications Acetaminophen (Acetaminophen 325 Mg Tablet) 650 mg PO Q6H PRN PRN Reason: Pain, Mild (Pain Scale 1-3) Last Admin: 08/04/23 01:42 Dose: 650 mg Documented By: ALFREDO Atorvastatin Calcium (Atorvastatin Calcium 40 Mg Tablet) 40 mg PO DAILY [facility] Last Admin: 08/03/23 08:11 Dose: 40 mg Documented By: DELMA Docusate Sodium (Docusate Sodium 100 Mg Capsule) 100 mg PO BID [facility] Last Admin: 08/03/23 18:55 Dose: Not Given Documented By: ALFREDO Non-Admin Reason: Entered in Error Gabapentin (Gabapentin 600 Mg Tablet) 600 mg PO TID [facility] Last Admin: 08/03/23 21:50 Dose: 600 mg Documented By: ALFREDO Guaifenesin/Codeine Phosphate (Guaifen/Codeine Sf 200/20/10ml 10 Ml Liquid) 5 ml PO Q4H PRN PRN Reason: Cough Heparin Sodium (Porcine) (Heparin Sodium,Porcine 5,000 Unit/Ml Vial) 5,000 unit SUBCUT Q8H [facility] Last Admin: 08/04/23 01:37 Dose: 5,000 unit Documented By: ALFREDO Hydromorphone HCl (Hydromorphone Hcl 0.5 Mg/0.5 Ml Syringe) 0.5 mg IVPUSH Q3H PRN; Protocol PRN Reason: Pain, Severe (Pain Scale 7-10) Sodium Chloride (Ns) 1,000 mls @ 100 mls/hr IVCONT .Q10H [facility] Last Admin: 08/03/23 21:46 Dose: 100 mls/hr Documented By: ALFREDO Ondansetron HCl (Ondansetron Hcl 4 Mg/2 Ml Vial) 4 mg IVPUSH Q6H PRN PRN Reason: Nausea and Vomiting Last Admin: 08/03/23 14:59 Dose: 4 mg Documented By: DELMA Prednisone (Prednisone 10 Mg Tablet) 10 mg PO DAILY [facility] Last Admin: 08/03/23 08:11 Dose: 10 mg Documented By: DELMA Promethazine HCl (Promethazine Hcl 25 Mg/Ml Vial) 12.5 mg IM Q6H PRN PRN Reason: Nausea and Vomiting Last Admin: 08/01/23 14:41 Dose: 12.5 mg Documented By: RUT Sodium Chloride (0.9 % Sodium Chloride Flush 3 Ml Syringe) 3 ml IVFLUSH QSHIFT [facility] Last Admin: 08/03/23 21:50 Dose: 3 ml Documented By: ALFREDO Tamsulosin HCl (Tamsulosin Hcl 0.4 Mg Capsule) 0.4 mg PO BEDTIME [facility] Last Admin: 08/03/23 21:50 Dose: 0.4 mg Documented By: ALFREDO Valsartan (Valsartan 40 Mg Tablet) 40 mg PO BID [facility]; Protocol Last Admin: 07/31/23 08:51 Dose: 40 mg Documented By: VERONIKA Vancomycin HCl (Vancomycin Hcl 125 Mg Capsule) 125 mg PO Q6H [facility] Stop: 08/13/23 16:59 Last Admin: 08/04/23 05:37 Dose: 125 mg Documented By: ALFREDO <Tata Crenshaw PA-C - Last Filed: 08/04/23 08:02> Labs CBC & Chem 7: 08/01/23 09:44 08/03/23 09:47 <Tata Crenshaw PA-C - Last Filed: 08/04/23 08:02> Labs: Laboratory Results - last 24 hr 08/03/23 08/03/23 09:47 13:30 Anion Gap 11 L Estim Creat Clear Calc 70.6 Estimated GFR > 60 Random Glucose 106 Calcium 8.5 D C. difficile Tox B Gene POSITIVE A* C. difficile Toxin A&B Negative C. difficile Interpret SEE NOTE <Tata Crenshaw PA-C - Last Filed: 08/04/23 08:02> Procedures Date of Service Date of Service: 08/04/23 <Tata Crenshaw PA-C - Last Filed: 08/04/23 08:02> 08/04/23 <Jose David Arana MD - Last Filed: 08/04/23 08:04> Progress Note: A&P Assessment and plan (1) Cecal volvulus: Status: Acute <Tata Crenshaw PA-C - Last Filed: 08/04/23 08:02> (2) C. difficile diarrhea: Status: Acute <Tata Crenshaw PA-C - Last Filed: 08/04/23 08:02> Assessment and Plan: Agree with above Seen and examined independently <Jose David Arana MD - Last Filed: 08/04/23 08:04> Assessment and Plan: POD #6s/p Laparotomy, right colon resection for cecal volvulus. Developed abd distention and loose stools, C diff positive. Started on PO vanco yesterday. He feels somewhat improved this morning. Abd remains distended this am but soft. Repeat AM labs. Encouraged OOB/ambulation and increasing activity. PT consult. Cont IVF until PO intake increases, with significant GI losses due to diarrhea. Hospitalists following. <Tata Crenshaw PA-C - Last Filed: 08/04/23 08:02> Time Spent With Patient Time: Total time managing care of this patient today ____ minutes. <Tata Crenshaw PA-C - Last Filed: 08/04/23 08:02> Quality Stroke Does the patient have a stroke diagnosis?: No <Tata Crenshaw PA-C - Last Filed: 08/04/23 08:02> VTE Prior VTE?: No <Tata Crenshaw PA-C - Last Filed: 08/04/23 08:02> VTE Risk Level:: Medical - moderate - high <Tata Crenshaw PA-C - Last Filed: 08/04/23 08:02> VTE Device Contraindication: N/A - Device Ordered <Tata Crenshaw PA-C - Last Filed: 08/04/23 08:02> VTE Drug Contraindication: N/A - Med Ordered <Tata Crenshaw PA-C - Last Filed: 08/04/23 08:02>
--- NOTE | 2023-08-04 08:02 | PM.PNGS ---
Subjective Subjective Date of Service: 08/04/23 Interval history: Feels better today Started on oral vanco yesterday for C diff positive stools with loose stools Says he still has loose stools although improved Ambulating more Physical Exam Vital Signs: Vital Signs: Last Vital Signs Temp 97.5 F 08/04/23 07:30 Pulse 94 08/04/23 07:30 Resp 18 08/04/23 07:30 BP 148/87 H 08/04/23 07:30 Pulse Ox 96 08/04/23 07:30 O2 Del Method Room Air 08/04/23 07:30 O2 Flow Rate 1 07/30/23 03:59 Oxygen Flow Rate 1 07/30/23 11:01 BMI result Body Mass Index 26.4 Const: General: comfortable Resp: Effort & Inspection: normal respiratory effort Cardio: Rate: regular rate GI: Other: Mildly distended but soft, no guarding, no rebound, incision clean and dry Objective Data Active Medications Acetaminophen (Acetaminophen 325 Mg Tablet) 650 mg PO Q6H PRN PRN Reason: Pain, Mild (Pain Scale 1-3) Last Admin: 08/04/23 01:42 Dose: 650 mg Documented By: ALFREDO Atorvastatin Calcium (Atorvastatin Calcium 40 Mg Tablet) 40 mg PO DAILY [facility] Last Admin: 08/03/23 08:11 Dose: 40 mg Documented By: DELMA Docusate Sodium (Docusate Sodium 100 Mg Capsule) 100 mg PO BID [facility] Last Admin: 08/03/23 18:55 Dose: Not Given Documented By: ALFREDO Non-Admin Reason: Entered in Error Gabapentin (Gabapentin 600 Mg Tablet) 600 mg PO TID [facility] Last Admin: 08/03/23 21:50 Dose: 600 mg Documented By: ALFREDO Guaifenesin/Codeine Phosphate (Guaifen/Codeine Sf 200/20/10ml 10 Ml Liquid) 5 ml PO Q4H PRN PRN Reason: Cough Heparin Sodium (Porcine) (Heparin Sodium,Porcine 5,000 Unit/Ml Vial) 5,000 unit SUBCUT Q8H [facility] Last Admin: 08/04/23 01:37 Dose: 5,000 unit Documented By: ALFREDO Hydromorphone HCl (Hydromorphone Hcl 0.5 Mg/0.5 Ml Syringe) 0.5 mg IVPUSH Q3H PRN; Protocol PRN Reason: Pain, Severe (Pain Scale 7-10) Sodium Chloride (Ns) 1,000 mls @ 100 mls/hr IVCONT .Q10H [facility] Last Admin: 08/03/23 21:46 Dose: 100 mls/hr Documented By: ALFREDO Ondansetron HCl (Ondansetron Hcl 4 Mg/2 Ml Vial) 4 mg IVPUSH Q6H PRN PRN Reason: Nausea and Vomiting Last Admin: 08/03/23 14:59 Dose: 4 mg Documented By: DELMA Prednisone (Prednisone 10 Mg Tablet) 10 mg PO DAILY [facility] Last Admin: 08/03/23 08:11 Dose: 10 mg Documented By: DELMA Promethazine HCl (Promethazine Hcl 25 Mg/Ml Vial) 12.5 mg IM Q6H PRN PRN Reason: Nausea and Vomiting Last Admin: 08/01/23 14:41 Dose: 12.5 mg Documented By: RUT Sodium Chloride (0.9 % Sodium Chloride Flush 3 Ml Syringe) 3 ml IVFLUSH QSHIFT [facility] Last Admin: 08/03/23 21:50 Dose: 3 ml Documented By: ALFREDO Tamsulosin HCl (Tamsulosin Hcl 0.4 Mg Capsule) 0.4 mg PO BEDTIME [facility] Last Admin: 08/03/23 21:50 Dose: 0.4 mg Documented By: ALFREDO Valsartan (Valsartan 40 Mg Tablet) 40 mg PO BID [facility]; Protocol Last Admin: 07/31/23 08:51 Dose: 40 mg Documented By: VERONIKA Vancomycin HCl (Vancomycin Hcl 125 Mg Capsule) 125 mg PO Q6H [facility] Stop: 08/13/23 16:59 Last Admin: 08/04/23 05:37 Dose: 125 mg Documented By: ALFREDO Labs 08/01/23 09:44 08/03/23 09:47 Labs: Laboratory Results - last 24 hr 08/03/23 08/03/23 09:47 13:30 Anion Gap 11 L Estim Creat Clear Calc 70.6 Estimated GFR > 60 Random Glucose 106 Calcium 8.5 D C. difficile Tox B Gene POSITIVE A* C. difficile Toxin A&B Negative C. difficile Interpret SEE NOTE Procedures Date of Service Date of Service: 08/04/23 Progress Note: A&P Assessment and plan (1) Cecal volvulus: Status: Acute Assessment and Plan: Status post right colon resection Good GI function C diff positive, started on vanco Improving steadily Better oral intake Encouraged more ambulation Possible DC home tomorrow Time Spent With Patient Time: Total time managing care of this patient today ____ minutes. Quality Stroke Does the patient have a stroke diagnosis?: No VTE Prior VTE?: No VTE Risk Level:: Medical - moderate - high VTE Device Contraindication: N/A - Device Ordered VTE Drug Contraindication: N/A - Med Ordered
[2023-08-04 08:15] LABS: Hematocrit 33.1 % (42.0-52.0); Hemoglobin 11.5 g/dl (14.0-18.0); Mean Corpuscular HGB Conc 34.7 g/dl (31.0-36.0); Mean Corpuscular Hemoglobin 30.7 pg (27.0-33.0); Mean Corpuscular Volume 88.5 fL (80.0-98.0); Platelet Count 194 X10*3/uL (160-400); Red Blood Count 3.74 X10*6/uL (4.60-5.80); Red Cell Distribution Width 13.7 % (11.0-16.0); White Blood Count 5.6 X10*3/uL (4.8-10.8)
[2023-08-04 08:27] LABS: Anion Gap 8 (12-20); Blood Urea Nitrogen 14 mg/dL (9-16); Calcium 8.3 mg/dL (8.4-10.2); Carbon Dioxide 23 mmol/L (22-29); Chloride 109 mmol/L (96-108); Creatinine Clr Calc Pharmacy 81.5; Estimated Glomerular Filt Rate > 60; Glucose Random 101 mg/dL (60-115); Potassium 3.4 mmol/L (3.3-5.1); Sodium 137 mmol/L (135-145)
[2023-08-04] MEDS: Gabapentin 600 MG TABLET PO ×3 (08:44→19:26)
[2023-08-04] MEDS: predniSONE 10 MG TABLET PO (08:44)
[2023-08-04] MEDS: Atorvastatin Calcium 40 MG TABLET PO (08:45)
[2023-08-04] MEDS: 0.9 % Sodium Chloride 1,000 ML 100 ML IVCONT (08:45)
[2023-08-04 08:47] VITALS: BP 148/87; PULSE 94; O2SAT 96
[2023-08-04 08:47] LABS: Band Neutrophils Percent 12 % (3-5); Basophils Abs Manual 0.1 X10*3/uL (0.0-0.2); Basophils Percent Manual 1 % (0-2); Eosinophils Absolute Manual 0.2 X10*3/uL (0.0-0.4); Eosinophils Percent Manual 4 % (0-4); Lymphocytes Absolute Manual 0.3 X10*3/uL (1.2-4.9); Lymphocytes Percent Manual 6 % (20-40); Metamyelocytes Absolute 0.2 X10*3/uL; Metamyelocytes Percent 4 %; Monocytes Absolute Manual 0.6 X10*3/uL (0.1-1.2); Monocytes Percent Manual 10 % (2-11); Myelocytes Absolute 0.1 X10*/uL; Myelocytes Percent 1 %; Neutrophils Absolute Manual 4.1 X10*3/uL (2.0-8.3); Neutrophils Percent Manual 61 % (45-73); Promyelocytes Absolute 0.1 X10*3/uL; Promyelocytes Percent 1 %
[2023-08-04] MEDS: Docusate Sodium 100 MG CAPSULE PO (08:53)
[2023-08-04 08:56] LABS: RBC Morphology NOTED
[2023-08-04 09:00] LABS: Burr Cells 1+ (0-2) /OIF; Platelet Estimate NORMAL (NORMAL); Platelet Morphology Comment NORMAL
[2023-08-04 15:24] VITALS: BP 158/87; PULSE 87; RESP 18; TEMP 37; O2SAT 96
[2023-08-04] MEDS: Tamsulosin HCL 0.4 MG CAPSULE PO (19:26)
[2023-08-04] MEDS: 0.9 % Sodium Chloride 1,000 ML 60 ML IVCONT (19:27)
[2023-08-04 19:29] VITALS: BP 159/84; PULSE 78; RESP 16; TEMP 36.1; O2SAT 96
[2023-08-05] MEDS: Heparin Sodium,Porcine 5,000 UNIT/ML VIAL 5000 UNIT SUBCUT ×2 (02:24→09:47)
[2023-08-05 03:16] VITALS: BP 154/60; PULSE 119; RESP 22; TEMP 36.4; O2SAT 93
[2023-08-05] MEDS: Acetaminophen 325 MG TABLET 650 MG PO (03:29)
--- NOTE | 2023-08-05 03:29 | PC.NURSE ---
Pt c/o abd pain 6/10 on his surgical site, pt requested to take prn Tylenol 650 mg po, med given.
[2023-08-05] MEDS: vancomycin HCL 125 MG CAPSULE PO ×3 (05:27→16:56)
[2023-08-05 07:55] VITALS: BP 136/80; PULSE 90; RESP 18; TEMP 36.9; O2SAT 93
--- NOTE | 2023-08-05 08:57 | P.PNGS_ITS ---
Subjective Subjective Date of Service: 08/05/23 Interval history: Says he feels better this morning Tolerating breakfast well Loose stools much improved Passing flatus Physical Exam 2 Vital Signs: Vital Signs: Last Vital Signs Temp 98.5 F 08/05/23 07:55 Pulse 90 08/05/23 07:55 Resp 18 08/05/23 07:55 BP 136/80 08/05/23 07:55 Pulse Ox 93 08/05/23 07:55 O2 Del Method Room Air 08/05/23 07:55 O2 Flow Rate 1 07/30/23 03:59 Oxygen Flow Rate 1 07/30/23 11:01 BMI result Body Mass Index 26.4 Const: General: comfortable and no acute distress Resp: Other: Mild shortness of breath as baseline Cardio: Rate: regular rate GI: Other: Incision clean and dry Palpation (GI): Soft to palpation, not firm and no guarding Objective Data Active Medications Acetaminophen (Acetaminophen 325 Mg Tablet) 650 mg PO Q6H PRN PRN Reason: Pain, Mild (Pain Scale 1-3) Last Admin: 08/05/23 03:29 Dose: 650 mg Documented By: JENA Atorvastatin Calcium (Atorvastatin Calcium 40 Mg Tablet) 40 mg PO DAILY [facility] Last Admin: 08/04/23 08:45 Dose: 40 mg Documented By: CHRISTINE Docusate Sodium (Docusate Sodium 100 Mg Capsule) 100 mg PO BID [facility] Last Admin: 08/04/23 19:37 Dose: Not Given Documented By: JENA Non-Admin Reason: watery stool 5x Gabapentin (Gabapentin 600 Mg Tablet) 600 mg PO TID [facility] Last Admin: 08/04/23 19:26 Dose: 600 mg Documented By: JENA Guaifenesin/Codeine Phosphate (Guaifen/Codeine Sf 200/20/10ml 10 Ml Liquid) 5 ml PO Q4H PRN PRN Reason: Cough Heparin Sodium (Porcine) (Heparin Sodium,Porcine 5,000 Unit/Ml Vial) 5,000 unit SUBCUT Q8H [facility] Last Admin: 08/05/23 02:24 Dose: 5,000 unit Documented By: JENA Hydromorphone HCl (Hydromorphone Hcl 0.5 Mg/0.5 Ml Syringe) 0.5 mg IVPUSH Q3H PRN; Protocol PRN Reason: Pain, Severe (Pain Scale 7-10) Sodium Chloride (Ns) 1,000 mls @ 60 mls/hr IVCONT .[id number] [facility] Last Admin: 08/04/23 19:27 Dose: 60 mls/hr Documented By: JENA Ondansetron HCl (Ondansetron Hcl 4 Mg/2 Ml Vial) 4 mg IVPUSH Q6H PRN PRN Reason: Nausea and Vomiting Last Admin: 08/03/23 14:59 Dose: 4 mg Documented By: DELMA Prednisone (Prednisone 10 Mg Tablet) 10 mg PO DAILY [facility] Last Admin: 08/04/23 08:44 Dose: 10 mg Documented By: CHRISTINE Promethazine HCl (Promethazine Hcl 25 Mg/Ml Vial) 12.5 mg IM Q6H PRN PRN Reason: Nausea and Vomiting Last Admin: 08/01/23 14:41 Dose: 12.5 mg Documented By: RUT Sodium Chloride (0.9 % Sodium Chloride Flush 3 Ml Syringe) 3 ml IVFLUSH QSHIFT [facility] Last Admin: 08/05/23 00:24 Dose: Not Given Documented By: JENA Non-Admin Reason: IV Running Tamsulosin HCl (Tamsulosin Hcl 0.4 Mg Capsule) 0.4 mg PO BEDTIME [facility] Last Admin: 08/04/23 19:26 Dose: 0.4 mg Documented By: JENA Valsartan (Valsartan 40 Mg Tablet) 40 mg PO BID [facility]; Protocol Last Admin: 07/31/23 08:51 Dose: 40 mg Documented By: VERONIKA Vancomycin HCl (Vancomycin Hcl 125 Mg Capsule) 125 mg PO Q6H [facility] Stop: 08/13/23 16:59 Last Admin: 08/05/23 05:27 Dose: 125 mg Documented By: JENA Labs 08/04/23 08:06 08/04/23 08:06 Labs: Laboratory Results - last 24 hr 08/04/23 08:06 Neutrophils % (Manual) 61 Band Neutrophils % 12 H Lymphocytes % (Manual) 6 L Monocytes % (Manual) 10 Eosinophils % (Manual) 4 Basophils % (Manual) 1 Metamyelocytes % 4 Myelocytes % 1 Promyelocytes % 1 Abs Neuts (Manual) 4.1 Lymphocytes # (Manual) 0.3 L Monocytes # (Manual) 0.6 Eosinophils # (Manual) 0.2 Basophils # (Manual) 0.1 Metamyelocytes # 0.2 Myelocytes # 0.1 Promyelocytes # 0.1 Platelet Estimate NORMAL Plt Morphology Comment NORMAL RBC Morphology NOTED Evelyn Cells 1+ (0-2) Procedures Date of Service Date of Service: 08/05/23 Progress Note: A&P Assessment and plan (1) C. difficile diarrhea: Status: Acute Assessment and Plan: Loose stools much improved Oral intake better this morning Overall he feels much better He is asking if he can be discharged this afternoon If he continues to do well, likely discharge this afternoon with VNA, PT Discussed with hospice case manager as well Labs okay We will be on a regimen of vancomycin p.o. (2) Cecal volvulus: Status: Acute Assessment and Plan: Status post right colon resection Doing well from surgical standpoint Good GI function Possible DC this afternoon Time Spent With Patient Time: Total time managing care of this patient today ____ minutes. Quality Stroke Does the patient have a stroke diagnosis?: No VTE Prior VTE?: No VTE Risk Level:: Medical - moderate - high VTE Device Contraindication: N/A - Device Ordered VTE Drug Contraindication: N/A - Med Ordered
[2023-08-05] MEDS: Gabapentin 600 MG TABLET PO ×2 (09:46→14:35)
[2023-08-05] MEDS: Atorvastatin Calcium 40 MG TABLET PO (09:46)
[2023-08-05] MEDS: predniSONE 10 MG TABLET PO (09:46)
[2023-08-05 10:09] VITALS: BP 136/80; PULSE 90; O2SAT 93
--- NOTE | 2023-08-05 10:24 | W.MHC.F2F ---
Service Date Service Date: 08/05/23 Encounter Date of encounter: 08/05/23 Reasons for Services Signs and symptoms assessed: S/P right colon resection for cecal volvulus, with hx of interstitial lung disease Reason for physical therapy: home safety and mobility and gait/transfer training Homebound: Leaving the home is medically contraindicated at this time without the asist of a device and/or another person due th the listed conditions above and below. Reason homebound: unsteady gait / fall risk Certification: Based on the above findings, I certify that this patient is confined to the home and needs intermittent prison care, physical therapy and/or speech therapy, or continues to need occupational therapy. The patient is under my care, and I have initiated the establishment of the plan of care. The patient will be followed by a physician who will periodically review the plan of care. Time Spent With Patient Time: Total time managing care of this patient today ____ minutes.
--- NOTE | 2023-08-05 10:27 | MHC.CM.PN ---
Addendum entered by Lana Maurice RN 08/05/23 14:11: RN AWARE Addendum entered by Lana Maurice RN 08/05/23 13:22: CM and surgeon met with patient at bedside, daughter Lucina on the phone, to discuss dc plan. Reviewed plan for PT services at home. Patient and daughter are agreeable to plan. Family will transport home at 5pm. IMM delivered. Original Note: EMR reviewed. Per surgeon, patient may dc this afternoon. Plan remains home w/ services. [facility] updated. CM will continue to follow.
--- NOTE | 2023-08-05 14:29 | PM.EVENT ---
Event Note Date of Service: 08/08/23 Event Note: feels better oral intake better passing flatus, BMs abd soft looks well overall ambulating pt says he is ready to go home had long discussion with family home PT arranged dc instructions reviewed ok to dc home on PO Alyssa pt and family comfortable with plan Time Spent With Patient Time: Total time managing care of this patient today ____ minutes.
--- NOTE | 2023-08-05 14:32 | P.DS_ITS ---
DS: Providers Provider Date of Service: 08/05/23 Date of admission: 07/29/23 07:22 Primary care physician: Eugenio Lovett MD Consults: 07/29/23 11:00 Consult to Hospitalist Routine Comment: Consulting Provider: Hospitalist Reason For Exam: HTN, pulmonary fibrosis DS: Diagnosis Discharge Diagnosis (1) C. difficile diarrhea: Status: Acute (2) Cecal volvulus: Status: Acute DS: Summary Hospital Course Hospital Course: 83M admitted for abdominal pain and distension his CT showed suggestion of distal small bowel obstruction with an internal hernia so he underwent laparotomy on July 29, 2023. Introp findings showed cecal volvulus so a right colectomy was done. He tolerated the procedure well and was started on clear liquids postop. His Palmer was removed on POD 1. His diet was slowly advanced and he was on regular diet on POD 2-3. However, on POD 4, he complained of bloating and loose stools so a stool cdiff test was done showing he was positive for the C diff PCR test. He was started on PO vanco and was placed back on clear liquids. This was readvanced to regular diet on POD7. He continued to tolerate this altough was taking only small meals. He continued to feel subjectively better and was ambulating well. On the day of discharge, he was tolerating regular diet with improvement of loose stools. He had remained afebrile and looked well overall. Status at Discharge Functional status at discharge: uses cane/walker Time Attestation Total time managing care of this patient today: 45 mintues. Discharge Coordination Time (in mins): 30 min Quality: Safe Use of Opioids Does Pt have an Active Cancer Diagnosis on the Problem List?: No Quality: Stroke Does the patient have a stroke diagnosis?: No Physical Exam Vital Signs: Vital Signs: Last Vital Signs Temp 98.5 F 08/05/23 07:55 Pulse 90 08/05/23 10:09 Resp 18 08/05/23 07:55 BP 136/80 08/05/23 10:09 Pulse Ox 93 08/05/23 10:09 O2 Del Method Room Air 08/05/23 07:55 O2 Flow Rate 1 07/30/23 03:59 Oxygen Flow Rate 1 07/30/23 11:01 BMI result Body Mass Index 26.4 Const: General: comfortable and no acute distress Orientation/consciousness: patient oriented x3 Neck: Neck: Yes no lymphadenopathy Resp: Auscultation: clear to auscultation bilaterally Cardio: Rhythm: regular rhythm GI: Other: incision clean and dry, bora intact Palpation (GI): Soft to palpation, nontender and no guarding Neuro: General: patient oriented x3 DS: Data Data Completed and Pending Completed studies during hospitalization [Text1]: Pending at discharge 07/29/23 10:16 Surgical [PTH] Routine Laboratory Results WBC 5.6 X10*3/uL (4.8-10.8) 08/04/23 08:06 RBC 3.74 X10*6/uL (4.60-5.80) L D 08/04/23 08:06 Hgb 11.5 g/dl (14.0-18.0) L D 08/04/23 08:06 Hct 33.1 % (42.0-52.0) L D 08/04/23 08:06 MCV 88.5 fL (80.0-98.0) 08/04/23 08:06 MCH 30.7 pg (27.0-33.0) 08/04/23 08:06 MCHC 34.7 g/dl (31.0-36.0) 08/04/23 08:06 RDW 13.7 % (11.0-16.0) 08/04/23 08:06 Plt Count 194 X10*3/uL (160-400) 08/04/23 08:06 MPV 10.0 fL (9.4-12.4) 08/04/23 08:06 Immature Gran % (Auto) Cancelled 08/04/23 08:06 Neut % (Auto) Cancelled 08/04/23 08:06 Lymph % (Auto) Cancelled 08/04/23 08:06 Montgomery % (Auto) Cancelled 08/04/23 08:06 Eos % (Auto) Cancelled 08/04/23 08:06 Baso % (Auto) Cancelled 08/04/23 08:06 Lymph # (Auto) Cancelled 08/04/23 08:06 Montgomery # (Auto) Cancelled 08/04/23 08:06 Eos # (Auto) Cancelled 08/04/23 08:06 Baso # (Auto) Cancelled 08/04/23 08:06 Abs Immat Gran (auto) Cancelled 08/04/23 08:06 Absolute Neuts (auto) Cancelled 08/04/23 08:06 Absolute Nucleated RBC 0.000 X10*3/uL (0.0-0.012) 08/04/23 08:06 Nucleated RBC % (auto) 0.0 /100WBC (0.0-0.2) 08/04/23 08:06 Neutrophils % (Manual) 61 % (45-73) 08/04/23 08:06 Band Neutrophils % 12 % (3-5) H 08/04/23 08:06 Lymphocytes % (Manual) 6 % (20-40) L 08/04/23 08:06 Monocytes % (Manual) 10 % (2-11) 08/04/23 08:06 Eosinophils % (Manual) 4 % (0-4) 08/04/23 08:06 Basophils % (Manual) 1 % (0-2) 08/04/23 08:06 Metamyelocytes % 4 % 08/04/23 08:06 Myelocytes % 1 % 08/04/23 08:06 Promyelocytes % 1 % 08/04/23 08:06 Abs Neuts (Manual) 4.1 X10*3/uL (2.0-8.3) 08/04/23 08:06 Lymphocytes # (Manual) 0.3 X10*3/uL (1.2-4.9) L 08/04/23 08:06 Monocytes # (Manual) 0.6 X10*3/uL (0.1-1.2) 08/04/23 08:06 Eosinophils # (Manual) 0.2 X10*3/uL (0.0-0.4) 08/04/23 08:06 Basophils # (Manual) 0.1 X10*3/uL (0.0-0.2) 08/04/23 08:06 Metamyelocytes # 0.2 X10*3/uL 08/04/23 08:06 Myelocytes # 0.1 X10*/uL 08/04/23 08:06 Promyelocytes # 0.1 X10*3/uL 08/04/23 08:06 Platelet Estimate NORMAL (NORMAL) 08/04/23 08:06 Plt Morphology Comment NORMAL 08/04/23 08:06 RBC Morphology NOTED 08/04/23 08:06 Evelyn Cells 1+ (0-2) /OIF 08/04/23 08:06 Sodium 137 mmol/L (135-145) 08/04/23 08:06 Potassium 3.4 mmol/L (3.3-5.1) 08/04/23 08:06 Chloride 109 mmol/L (96-108) H 08/04/23 08:06 Carbon Dioxide 23 mmol/L (22-29) 08/04/23 08:06 Anion Gap 8 (12-20) L 08/04/23 08:06 BUN 14 mg/dL (9-16) 08/04/23 08:06 Creatinine 0.71 mg/dL (0.5-1.4) 08/04/23 08:06 Estim Creat Clear Calc 81.5 08/04/23 08:06 Estimated GFR > 60 08/04/23 08:06 Random Glucose 101 mg/dL (60-115) 08/04/23 08:06 Lactic Acid 0.9 mmol/L (0.5-2.0) 08/01/23 09:44 Calcium 8.3 mg/dL (8.4-10.2) L 08/04/23 08:06 Total Bilirubin 0.4 mg/dL (0.0-1.0) 07/29/23 00:57 Direct Bilirubin 0.2 mg/dL (0.0-0.5) 07/29/23 00:57 AST 14 U/L (5-37) 07/29/23 00:57 ALT 14 U/L (0-40) 07/29/23 00:57 Alkaline Phosphatase 88 U/L (39-117) 07/29/23 00:57 Troponin I High Sens < 2.7 ng/L (<3.5-35.0) 07/29/23 00:57 B-Natriuretic Peptide 16 pg/mL (<100) 07/29/23 00:57 Total Protein 5.8 g/dL (6.5-8.0) L 07/29/23 00:57 Albumin 3.6 g/dL (3.5-5.0) 07/29/23 00:57 Lipase 30 U/L (8-78) 07/29/23 00:57 Urine Color Yellow 07/29/23 03:40 Urine Appearance Clear 07/29/23 03:40 Urine pH 6.5 (5.0-9.0) 07/29/23 03:40 Ur Specific Dupont 1.015 (1.005-1.025) 07/29/23 03:40 Urine Protein Negative mg/dL (Neg-Trace) 07/29/23 03:40 Urine Glucose (UA) Negative mg/dL (Negative) 07/29/23 03:40 Urine Ketones Trace mg/dL (Negative) 07/29/23 03:40 Urine Blood Negative (Negative) 07/29/23 03:40 Urine Nitrite Negative (Negative) 07/29/23 03:40 Ur Leukocyte Esterase Negative (Negative) 07/29/23 03:40 C. difficile Tox B Gene POSITIVE (Negative) A* 08/03/23 13:30 C. difficile Toxin A&B Negative (Negative) 08/03/23 13:30 C. difficile Interpret SEE NOTE 08/03/23 13:30 Blood Type O Positive 07/29/23 08:25 Antibody Screen NEGATIVE 07/29/23 08:25 Impressions Abdomen/Pelvis CT 07/29/23 01:18 IMPRESSION: 1. There is twisting of the mesentery in the right lower quadrant near the region of the distal ileum. There are distended colonic bowel loops and mildly dilated small bowel loops up to 4 cm. The findings are consistent with a small bowel obstruction probably related to small bowel volvulus.. 2. There is diverticulosis of the colon without diverticulitis. 3. Status post cholecystectomy. 4. Interstitial coarsening at both lung bases. Fleischner guidelines were followed. Discharge Plan Discharge Anticipated Discharge Date/Time: 08/05/23 15:00 Patient Disposition: Home Health Service Discharge Diagnosis: cecal volvulus Referrals: Mary DUMONT [Outside] - 3-5 Days (Mary DUMONT will call you to schedule physical therapy appointments) Eugenio Lovett MD [Primary Care Provider] - 1 Week Jose David Arana MD [Physician] - 1 Week Discharge Medications: New oxycodone-acetaminophen [Percocet] 5-325 mg tablet 1 tab PO Q6H PRN (Reason: pain) Qty: 15 0RF Rx Instructions: Partial Fill upon patient request. vancomycin 125 mg capsule 125 mg PO QID Qty: 24 0RF Continued tamsulosin 0.4 mg capsule 0.4 mg PO BEDTIME Qty: 90 3RF atorvastatin 40 mg tablet 40 mg PO DAILY 90 Days Qty: 90 3RF gabapentin 600 mg tablet 600 mg PO TID 30 Days Qty: 90 2RF prednisone 10 mg tablet 10 mg PO QAM valsartan 40 mg tablet 20 mg PO BID 90 Days Qty: 90 2RF Discharge Orders: Discharge Order (Routine); Ordered 08/05/23 Ordered By: Jose David Arana Diet: Advance to usual diet Activity on Discharge: No heavy lifting Stand Alone Forms: Patient Portal Discharge page Print Language: Occitan Activity Restrictions/Additional Instructions: small frequent meals If the incision area is tender, you may apply an ice pack for short intervals (No more than 20 minutes on, followed by at least 20 minutes off). Do not apply heat. Do not use creams, lotions, or topical antibiotics unless instructed to do so by your surgeon. These can cause infection or allergic reaction. No lifting more than 20 lbs Okay to shower No strenuous activities Call the office for follow-up in 1-2 weeks - with Dr. Arana [phone] Call Your Doctor If: -Your temperature exceeds 101.5? F -You experience excessive pain or swelling -You have an unexpected reaction to medication -You have excessive bleeding -You experience continued vomiting/nausea -Your incision begins to separate -Your incision shows signs of infection such as increased redness, swelling, excessive pain, drainage (light blood or clear fluid is normal) or heat Care Plan Goals: return to baseline health Health Concerns: C diff colitis interstitial disease of the lungs Plan of Treatment: oral Vanco office ffup Assessment: doing very well
[2023-08-05] MEDS: 0.9 % Sodium Chloride Flush 3 ML SYRINGE IVFLUSH (14:35)
[2023-08-05 15:03] VITALS: BP 142/65; PULSE 81; RESP 13; TEMP 36.6; O2SAT 96
== END 2023-08-05 17:05 | disposition home health service (06) | DRG 330 ==
LOC: HO.ED 07:31 → HO.EDOVER 07:33 → HO.S3 11:17
PROVIDERS: Nurse Practitioner Acute Care; Physician Assistant Surgical; Admitting Provider Surgery; Emergency Provider Emergency Medicine; PCP Family Medicine; Visit Provider Surgery
PROC: 0DTF0ZZ Resection of Right Large Intestine, Open Approach (ICD-10-PCS; CPT 49000; principal; 2023-07-29 09:00)
DX: K56.2 Volvulus (principal); A04.72 Enterocolitis due to Clostridium difficile, not specified as recurrent; N17.9 Acute kidney failure, unspecified; I10 Essential (primary) hypertension; G89.18 Other acute postprocedural pain; N40.0 Benign prostatic hyperplasia without lower urinary tract symptoms; J84.112 Idiopathic pulmonary fibrosis; E78.5 Hyperlipidemia, unspecified; Z96.652 Presence of left artificial knee joint; Z87.891 Personal history of nicotine dependence; Z79.899 Other long term (current) drug therapy
CPT/HCPCS: 36415; 74176; 80048; 80076; 81003; 83605; 83690; 83880; 84484; 85007; 85025; 85027; 86850; 86900; 86901; 87324; 87493; 88307; 93005; 97116; 97162; 97530; 99285; C1758; J0131; J0330; J0360; J0665; J0690; J1100; J1170; J1644; J2250; J2270; J2405; J2550; J2704; J2765; J3010; J7120

== ENCOUNTER → 2023-07-29 00:35 | Outpatient (BNV) | payer MEDICARE, SELFPAY | PROVIDERS: Admitting Provider Surgery; Emergency Provider Emergency Medicine; PCP Family Medicine; Visit Provider Internal Medicine Cardiovascular Disease | DX: R10.9 Unspecified abdominal pain (principal) | CPT/HCPCS: 93010 ==

== ENCOUNTER → 2023-07-29 07:22 | Outpatient (BNV) | payer MEDICARE, SELFPAY | PROVIDERS: Admitting Provider Surgery; Emergency Provider Emergency Medicine; PCP Family Medicine; Visit Provider Student in an Organized Health Care Education/Training Program | DX: K56.2 Volvulus (principal); I95.9 Hypotension, unspecified | CPT/HCPCS: 99222; 99232; 99499 ==

== ENCOUNTER → 2023-07-29 07:22 | Outpatient (BNV) | payer MEDICARE, SELFPAY | PROVIDERS: Admitting Provider Surgery; Emergency Provider Emergency Medicine; PCP Family Medicine; Visit Provider Surgery | DX: A04.72 Enterocolitis due to Clostridium difficile, not specified as recurrent (principal); K56.2 Volvulus | CPT/HCPCS: 44140; 99024; 99222; 99499; G0180 ==

== ENCOUNTER 2023-08-17 14:41 | Outpatient (AMB) | payer MEDICARE, SELFPAY ==
--- NOTE | 2023-08-17 14:47 | A.OFFVIS_ITS ---
Intake Visit Reasons: s/p exploratory lap Intake Note: This patient presents for a post-op assessment status post Laparotomy, right colon resection. Patient c/o; reports no complaints. 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 He had undergone right colon resection for a cecal volvulus last 07/29/2023. He was discharged after 1 week as his post op course was complicated by C diff colitis He lives in an assisted living facility He feels that his energy level is not back yet. He still feels that he is weak although he is able to walk with a cane as before. He has not been able to walk his dog as much she had he says He describes some occasional pain with gassiness. He is tolerating diet however. He has good bowel movements and denies any vomiting. Denies any fever at home. [facility] Medical History (Updated 08/17/23 @ 15:22 by Jose David Arana MD) Cecal volvulus Hypotension Surgical History History of surgical procedure (~07/29/23) History of back surgery History of rotator cuff surgery History of ear, nose, and throat (ENT) surgery History of left knee replacement Family History Other Substance use disorder Social History Household Members: Spouse and Other Household Members Other:: independent living Housing: Apartment Alcohol intake: never Patient Tobacco Use Status: Former Tobacco user e-Cigarette/Vaping Use: Never Used Second Hand Smoke Exposure: No service: No Current occupational status: retired Current occupational exposures/hazards: No Cognitive needs: No Hearing needs: Yes (hearing aides) Vision needs: No Review of Systems Const Denies chills and Denies fever(s) Card Denies chest pain GI Denies abdominal pain Denies difficulty urinating Physical Exam Const Other: Ambulating with a cane General: comfortable and no acute distress Resp Effort & Inspection: normal respiratory effort Cardio Rate: regular rate GI Other: Incision clean dry and well he Palpation (GI): Soft to palpation, not firm, nontender and no guarding Assessment & Plan Assessment & Plan (1) Cecal volvulus: Code(s): K56.2 - Volvulus Category: Medical Plan: Status post right colon resection. He is doing quite well although his energy level does not seem to be back yet. He has lost some weight as well and I told him that it is likely that he has not been getting enough caloric intake. I have encouraged him to take some Ensure supplements. Otherwise, he has had no vomiting and has good bowel movements. I will prescribe him Mylicon for his gassiness I will see him again in the office in about 3 weeks to see how is doing. I also advised him to follow up with his primary care physician and we will assist him with this. His son was with him during the visit. Medications: New simethicone 160 mg (2 x 80 mg) PO TID PRN 20 tabs 0RF gas Coding Level of Care Code Global (44458) Diagnoses Cecal volvulus K56.2
== END 2023-08-17 15:24 | disposition home or self-care (01) ==
PROVIDERS: PCP Family Medicine; Visit Provider Surgery
DX: K56.2 Volvulus (principal)
CPT/HCPCS: 99024

== ENCOUNTER → 2023-08-17 14:41 | Outpatient (BNVA) | payer MEDICARE, SELFPAY | PROVIDERS: PCP Family Medicine; Visit Provider Surgery | DX: K56.2 Volvulus (principal) | CPT/HCPCS: 99212 ==

== ENCOUNTER 2023-09-05 13:08 | Outpatient (AMB) | payer MEDICARE, SELFPAY ==
--- NOTE | 2023-09-05 13:11 | A.OFFVIS_ITS ---
Vital Signs 09/05/23 13:23 Weight 123 lb Intake Visit Reasons: s/p exploratory lap Intake Note: This patient presents for a one month follow-up assessment status post exploratory Laparotomy. Patient c/o; reports oozing from incision. 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 He says that he for the past 2 days, his oral intake seems to be better. He denies any diarrhea or any symptoms of persistent C diff infection. He says overall he seems to be better but says he has not really gained back weight yet. [facility] Medical History Cecal volvulus Hypotension Surgical History History of surgical procedure (~07/29/23) History of back surgery History of rotator cuff surgery History of ear, nose, and throat (ENT) surgery History of left knee replacement Family History Other Substance use disorder Social History Household Members: Spouse and Other Household Members Other:: independent living Housing: Apartment Alcohol intake: never Patient Tobacco Use Status: Former Tobacco user e-Cigarette/Vaping Use: Never Used Second Hand Smoke Exposure: No service: No Current occupational status: retired Current occupational exposures/hazards: No Cognitive needs: No Hearing needs: Yes (hearing aides) Vision needs: No Review of Systems Const Denies chills and Denies fever(s) Card Denies chest pain GI Denies abdominal pain Denies difficulty urinating Physical Exam Const General: comfortable and no acute distress Resp Effort & Inspection: normal respiratory effort Cardio Rate: regular rate GI Other: Midline incision healing well with 2 areas with hypergranulation tissue likely from his sutures Palpation (GI): Soft to palpation, not firm, nontender and no guarding Assessment & Plan Assessment & Plan (1) Cecal volvulus: Code(s): K56.2 - Volvulus Category: Medical Plan: Status post right colon resection. He is doing well although he has not really gained back weight yet. I advised him on doing nipple small meals during the day instead of 3 big meals. He does not have any diarrhea or any suggestion of persistent C diff infection He looks well overall. I will see him again in the office in about a month. Coding Level of Care Code Global (31014) Diagnoses Cecal volvulus K56.2
== END 2023-09-05 13:50 | disposition home or self-care (01) ==
PROVIDERS: PCP Family Medicine; Visit Provider Surgery
DX: K56.2 Volvulus (principal)
CPT/HCPCS: 99024

== ENCOUNTER → 2023-09-05 13:08 | Outpatient (BNVA) | payer MEDICARE, SELFPAY | PROVIDERS: PCP Family Medicine; Visit Provider Surgery | DX: Z48.815 Encounter for surgical aftercare following surgery on the digestive system (principal); Z87.19 Personal history of other diseases of the digestive system | CPT/HCPCS: 99212 ==

== ENCOUNTER 2023-10-10 14:24 | Outpatient (AMB) | payer MEDICARE, SELFPAY ==
--- NOTE | 2023-10-10 14:28 | A.OFFVIS_ITS ---
Vital Signs 10/10/23 14:33 Weight 129 lb 2 oz Intake Visit Reasons: s/p colectomy Intake Note: This patient presents for a post-op follow-up assessment status post laparotomy, right colon resection. Pt c/o; reports right side back pain. 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 He also had C diff colitis at that time. He says he is doing very well now. He has been ambulating. He has good oral intake. He denies any abdominal pain. [facility] Medical History Cecal volvulus Hypotension Surgical History (Updated 10/10/23 @ 14:47 by Jose David Arana MD) Status post colon resection History of surgical procedure (~07/29/23) History of back surgery History of rotator cuff surgery History of ear, nose, and throat (ENT) surgery History of left knee replacement Family History Other Substance use disorder Social History Household Members: Spouse and Other Household Members Other:: independent living Housing: Apartment Alcohol intake: never Patient Tobacco Use Status: Former Tobacco user e-Cigarette/Vaping Use: Never Used Second Hand Smoke Exposure: No service: No Current occupational status: retired Current occupational exposures/hazards: No Cognitive needs: No Hearing needs: Yes (hearing aides) Vision needs: No Physical Exam Const General: comfortable and no acute distress Orientation/consciousness: patient oriented x3 Neck Neck: Yes no lymphadenopathy Resp Auscultation: clear to auscultation bilaterally Cardio Rhythm: regular rhythm GI Palpation (GI): Soft to palpation, nontender and no guarding Neuro General: patient oriented x3 Assessment & Plan Assessment & Plan (1) Status post colon resection: Code(s): Z90.49 - Acquired absence of other specified parts of digestive tract Category: Surgical Plan: He is doing very well now. His incision is well healed. There was 1 small area of hypergranulation but I anticipate this to resolve I encouraged him to increase his oral intake He can follow up on a p.r.n. basis. His son was with him during the visit. Coding Level of Care Code Global (75999) Diagnoses Status post colon resection Z90.49
== END 2023-10-10 15:07 | disposition home or self-care (01) ==
PROVIDERS: PCP Family Medicine; Visit Provider Surgery
DX: Z90.49 Acquired absence of other specified parts of digestive tract (principal)
CPT/HCPCS: 99024

== ENCOUNTER → 2023-10-10 14:24 | Outpatient (BNVA) | payer MEDICARE, SELFPAY | PROVIDERS: PCP Family Medicine; Visit Provider Surgery | DX: Z09 Encounter for follow-up examination after completed treatment for conditions other than malignant neoplasm (principal); Z90.49 Acquired absence of other specified parts of digestive tract | CPT/HCPCS: 99212 ==

== ENCOUNTER 2023-11-30 09:17 | Outpatient (REF) | payer MEDICARE, SELFPAY ==
[2023-11-30 13:37] LABS: MANUAL DIFF FLAG NO
[2023-11-30 13:43] LABS: Appearance Urine Clear; Color Urine Yellow; Glucose Urine UA Negative (Negative); Leukocyte Esterase Urine Negative (Negative); Nitrite Urine Negative (Negative); Specific Gravity - Urine 1.015 (1.005-1.025); Urine Blood Negative (Negative); Urine Ketones Negative (Negative); Urine Protein Negative (Neg-Trace)
[2023-11-30 13:45] LABS: Basophils Absolute Auto 0.1 X10*3/uL (0.0-0.2); Basophils Percent Auto 0.9 % (0-2); Eosinophils Absolute Auto 0.9 X10*3/uL (0.0-0.4); Eosinophils Percent Auto 12.4 % (0-4); Hematocrit 43.8 % (42.0-52.0); Hemoglobin 14.2 g/dl (14.0-18.0); Imm Gran Abs Auto 0.02 X10*3/uL (0.00-0.03); Imm Gran Pct Auto 0.3 % (0.0-0.4); Lymphocytes Absolute Auto 1.8 X10*3/uL (1.2-4.9); Lymphocytes Percent Auto 23.5 % (20-40); Mean Corpuscular HGB Conc 32.4 g/dl (31.0-36.0); Mean Corpuscular Hemoglobin 29.2 pg (27.0-33.0); Mean Corpuscular Volume 89.9 fL (80.0-98.0); Mean Platelet Volume 10.7 fL (9.4-12.4); Monocytes Absolute Auto 0.7 X10*3/uL (0.1-1.2); Monocytes Percent Auto 9.8 % (2-11); Neutrophils Percent Auto 53.1 % (45-73); Platelet Count 243 X10*3/uL (160-400); Red Blood Count 4.87 X10*6/uL (4.60-5.80); Red Cell Distribution Width 13.8 % (11.0-16.0); White Blood Count 7.5 X10*3/uL (4.8-10.8)
[2023-11-30 14:20] LABS: Prostate Specific Antigen Scr 0.35 ng/mL (<0.05-4.0)
[2023-11-30 14:27] LABS: Alanine Aminotransferase 16 U/L (0-40); Albumin Level 3.8 g/dL (3.5-5.0); Alkaline Phosphatase 104 U/L (39-117); Anion Gap 12 (12-20); Aspartate Amino Transferase 18 U/L (5-37); Bilirubin Total 0.5 mg/dL (0.0-1.0); Blood Urea Nitrogen 15 mg/dL (9-16); Calcium 9.7 mg/dL (8.4-10.2); Carbon Dioxide 32 mmol/L (22-29); Chloride 102 mmol/L (96-108); Cholesterol 142 mg/dL (<200); Estimated Glomerular Filt Rate > 60; Glucose Fasting 85 mg/dL (60-99); HDL Cholesterol 54 mg/dL (>40); LDL Cholesterol Calculated 73 mg/dL (<100); Potassium 4.1 mmol/L (3.3-5.1); Sodium 142 mmol/L (135-145); TSH reflex Free T4 0.64 uIU/mL (0.32-4.0); Total Protein 6.4 g/dL (6.5-8.0); Triglycerides 79 mg/dL (<150)
[2023-11-30 14:41] LABS: Creatinine Urine 94.63 mg/dL; Microalbumin Urine < 5.0 mg/L
== END 2023-11-30 09:18 | disposition home or self-care (01) ==
LOC: HO.HMGCLDS 09:17
PROVIDERS: PCP Family Medicine; Visit Provider Family Medicine
DX: Z00.00 Encounter for general adult medical examination without abnormal findings (principal); I10 Essential (primary) hypertension; Z12.5 Encounter for screening for malignant neoplasm of prostate
CPT/HCPCS: 36415; 80053; 80061; 81003; 82043; 82570; 84153; 84443; 85025

== ENCOUNTER 2023-12-07 11:13 | Outpatient (AMB) | payer MEDICARE, SELFPAY ==
--- NOTE | 2023-12-07 12:03 | A.OFFPC_ITS ---
Vital Signs 12/07/23 12:05 Height 5 ft 8 in Weight 135 lb BMI 20.5 BP 100/50 L Blood Pressure Location Lt brachial Position Sitting Respiration 12 Pulse 87 Pulse Source Pulse Oximeter Temp 97.1 F Temp Source Oral Pulse Oximetry (%) 95 Oxygen Delivery Method Room Air Intake Visit Reasons: EST/BLOOD PRESSURE Intake Note: B/P FOLLOW UP Allergies No Known Allergies Allergy (Verified 12/07/23 12:03) Tobacco use date assessed: 04/08/23 Dental Screening Dental Screen Date: 04/08/23 HPI EST/BLOOD PRESSURE HPI Details 83 y/o male presents to f/u hypertension , chronic conditions. Blood pressure today 100/50, 87p. S/p colon resection with Dr. Arana. He notes abdomen feels fine. Bowel movements are fine though he notes constipation sometimes. Continues to drink plenty of water. Cologuard test in April which was negative. Notes he has been taking xyzal for alleriges at night. Reports difficulty sleeping. Denies any snoring/symptoms of sleep apnea. [facility] Medical History (Updated 12/07/23 @ 12:56 by Didier Hernandez) Cecal volvulus Hypotension Surgical History (Updated 10/10/23 @ 14:47 by Jose David Arana MD) Status post colon resection History of surgical procedure (~07/29/23) History of back surgery History of rotator cuff surgery History of ear, nose, and throat (ENT) surgery History of left knee replacement Family History Other Substance use disorder Social History Household Members: Spouse and Other Household Members Other:: independent living Housing: Apartment Alcohol intake: never Patient Tobacco Use Status: Former Tobacco user e-Cigarette/Vaping Use: Never Used Second Hand Smoke Exposure: No service: No Current occupational status: retired Current occupational exposures/hazards: No Cognitive needs: No Hearing needs: Yes (hearing aides) Vision needs: No Questionnaire Thrive Questionnaire Date Thrive assessed: 07/30/23 KARTHIK-7 AMB Questionnaire KARTHIK-7 Date KARTHIK - 7 assessed: 04/15/22 Source: Developed by Drs. Jr Mcrae, Caitlin B.Kennedy Payton and colleagues, with an educational armin from [employer]. Physical exam (Primary Care) Vital Signs: Last Vital Signs Temp 97.1 F 12/07/23 12:05 Pulse 87 12/07/23 12:05 Resp 12 12/07/23 12:05 BP 100/50 L 12/07/23 12:05 Pulse Ox 95 12/07/23 12:05 Oxygen Delivery Method Room Air 12/07/23 12:05 BMI result Body Mass Index 20.5 Tobacco/Smoking Status: Tobacco use Status Tobacco use date assessed 04/08/23 12/07/23 12:08 Patient Tobacco Use Status Former Tobacco user 12/07/23 12:08 e-Cigarette/Vaping Use Never Used 12/07/23 12:08 Thrive Assessment: Date of Thrive Assessment Date Thrive assessed 07/30/23 12/07/23 12:08 Coding Level of Care Code Est Pt Level 4 (07743) Diagnoses Hypertension I10 Screening for colon cancer Z12.11 Status post colon resection Z90.49 Allergies T78.40XA Difficulty sleeping G47.9 Assessment & Plan Assessment & Plan (1) Hypertension: Code(s): I10 - Essential (primary) hypertension Category: Medical Plan: BP controlled (2) Screening for colon cancer: Code(s): Z12.11 - Encounter for screening for malignant neoplasm of colon Category: Medical Plan: cologard was negative (3) Status post colon resection: Code(s): Z90.49 - Acquired absence of other specified parts of digestive tract Category: Surgical Plan: now doing well. f/u with surgeon as recommended (4) Allergies: Code(s): T78.40XA - Allergy, unspecified, initial encounter Category: Medical Plan: continue cetirizine (5) Difficulty sleeping: Code(s): G47.9 - Sleep disorder, unspecified Category: Medical Plan: Trial trzodone at low dose. will f/u on this at next ov Medications: New trazodone 25 mg (1/2 x 50 mg) PO BEDTIME 30 days PRN 20 tabs 0RF sleep
[2023-12-07 12:05] VITALS: BP 100/50; PULSE 87; RESP 12; TEMP 36.2; O2SAT 95; BMI 20.5
== END 2023-12-07 13:17 | disposition home or self-care (01) ==
PROVIDERS: PCP Family Medicine; Visit Provider Family Medicine
DX: I10 Essential (primary) hypertension (principal); Z12.11 Encounter for screening for malignant neoplasm of colon; Z90.49 Acquired absence of other specified parts of digestive tract; T78.40XA Allergy, unspecified, initial encounter; G47.9 Sleep disorder, unspecified

== ENCOUNTER → 2023-12-07 11:13 | Outpatient (BNVA) | payer MEDICARE, SELFPAY | PROVIDERS: PCP Family Medicine; Visit Provider Family Medicine | DX: I10 Essential (primary) hypertension (principal); T78.40XD Allergy, unspecified, subsequent encounter; G47.9 Sleep disorder, unspecified; Z90.49 Acquired absence of other specified parts of digestive tract | CPT/HCPCS: 99212 ==

== ENCOUNTER 2023-12-15 10:57 | Outpatient (AMB) | payer MEDICARE, SELFPAY ==
--- NOTE | 2023-12-15 11:00 | MHC.OFFVIS ---
Intake Visit Reasons: 1y follow up/PVR Intake Note: Patient is present for 1Y F/U Urology Medication:TAMSULOSIN Antibiotic Allergy:NONE Blood Thinner:NONE TODAY'S PVR:0ML'S Nurse Extern Required: No Allergies No Known Allergies Allergy (Verified 12/15/23 11:01) HPI Comments Details: Pardeep is a 83-year-old male who presents for follow up BPH. LV--06/04/2022-- The patient states having benefits with Flomax 0.4 mg daily. Denies irritative voiding symptoms. Nocturia x2. Denies hematuria. Cont tamsulosin. Review of chart: 03/22/2022-- 82 year old male here for evaluation for abnormal findings on scrotal ultrasound PCP - Eugenio Lovett MD. The patient states he had a rash on the scrotal skin, was seen by Dermatology --was given a cream which helped. He complains of slowing of the urinary stream denies dysuria, denies gross hematuria. he had a scrotal sono- I reviewed results with the patient --6 mm hyperechoic area, may represent a calcification/report recommends fu imaging PSA - 01/04/22- 0.38 ng/mL Evaluation today: UA leuk - neg, blood trace, Bladder scan PVR 23 mL, prostate exam irregular, no hard nodules ---testes -nontender, left epididymis, inferior pole firm, non - specific finding c/w ultrasound report. Plan - discussed trial of flomax, will repeat scrotal U/S Imaging- Scrotal U/S--Left epididymal--0.6 x 0.5 x 0.5 cm hyperechoic observation in the epididymal body, possibly representing a calcification. Scrotum US results ?03/26/2022-- Bilateral epididymal cysts and varicoceles. The calcification/echogenic focus seen in the left epididymis is unchanged and stable. [facility] Medical History (Updated 12/07/23 @ 12:56 by Didier Hernandez) Cecal volvulus Hypotension Surgical History (Updated 10/10/23 @ 14:47 by Jose David Arana MD) Status post colon resection History of surgical procedure (~07/29/23) History of back surgery History of rotator cuff surgery History of ear, nose, and throat (ENT) surgery History of left knee replacement Family History Other Substance use disorder Social History Household Members: Spouse and Other Household Members Other:: independent living Housing: Apartment Alcohol intake: never Patient Tobacco Use Status: Former Tobacco user e-Cigarette/Vaping Use: Never Used Second Hand Smoke Exposure: No service: No Current occupational status: retired Current occupational exposures/hazards: No Cognitive needs: No Hearing needs: Yes (hearing aides) Vision needs: No Review of Systems Const All systems reviewed & are unremarkable except as noted in HPI and below Reports no additional complaints Eyes Reports no additional complaints ENT Reports no additional complaints Card Reports no additional complaints Resp Reports no additional complaints GI Reports no additional complaints Reports as per HPI Musc Reports no additional complaints Skin/Breast Reports system reviewed and no additional complaints, except as documented Neuro Reports no additional complaints Psych Reports no additional complaints Endo Reports no additional complaints Nasir/Lymph Reports no additional complaints Aller/Immun Reports no additional complaints Office Procedures Post Void Residual Post Residual Void Post Void Residual (PVR): 0 [id number] Void Residual by ultrasound Results AMB Urinalysis, Automated UA Leukoctes 0 Edson/uL Last Edit by AURE Ocasio on 12/15/23 11:27 UA Nitrite Negative Last Edit by AURE Ocasio on 12/15/23 11:27 UA Urobilinogen 0.2 mg/dL Last Edit by AURE Ocasio on 12/15/23 11:27 UA Protein 15 mg/dL Last Edit by AURE Ocasio on 12/15/23 11:27 UA pH 6.0 Last Edit by AURE Ocasio on 12/15/23 11:27 UA Blood 0 Chepe/uL Last Edit by AURE Ocasio on 12/15/23 11:27 UA Specific Gibson 1.015 Last Edit by AURE Ocasio on 12/15/23 11:27 UA Ketone Negative Last Edit by AURE Ocasio on 12/15/23 11:27 UA Bilirubin 0 mg/dL Last Edit by AURE Ocasio on 12/15/23 11:27 UA Glucose 0 mg/dL Last Edit by AURE Ocasio on 12/15/23 11:27 Results Reviewed Results Reviewed: Laboratory Last Values Urine pH (Auto) 6.0 12/15/23 11:26 Specific Gibson (Auto) 1.015 12/15/23 11:26 Urine Protein (Auto) 15 mg/dL 12/15/23 11:26 Glucose (UA)(Auto) 0 mg/dL 12/15/23 11:26 Urine Ketones (Auto) Negative 12/15/23 11:26 Urine Blood (Auto) 0 Chepe/uL 12/15/23 11:26 Urine Nitrite (Auto) Negative 12/15/23 11:26 Urine Bilirubin (Auto) 0 mg/dL 12/15/23 11:26 Urine Urobilinogen (Auto) 0.2 mg/dL 12/15/23 11:26 Leukocyte Esterase (Auto) 0 Edson/uL 12/15/23 11:26 Assessment & Plan Assessment & Plan (1) BPH loc w urin obs/LUTS: Code(s): N40.1 - Benign prostatic hyperplasia with lower urinary tract symptoms Category: Medical (2) Slowing of urinary stream: Code(s): R39.198 - Other difficulties with micturition Category: Medical Plan Continue tamsulosin 0.4 mg PO as directed. Orders: Orders AMB Urinalysis Automated 12/15/23 Z13.9 - Encounter for screening, unspecified Patient Instructions: The patient had an opportunity to ask questions regarding treatment plan. The patient expressed understanding and agreement with the above treatment plan. The patient is aware they should contact our office by phone for worsening of their current condition or the appearance of new symptoms. Compliance is encouraged with any medications and followup testing that is ordered. It is a privilege to be allowed the opportunity to participate in the urologic care of your patient. If you have any questions or concerns regarding treatment for the above conditions please do not hesitate to contact me. The office telephone contact is [phone]. This note is constructed in part using voice recognition software. While every effort has been made to ensure accuracy chief client officer errors may have been included. Yours sincerely, Erik Apodaca MD Coding Level of Care Code Est Pt Level 3 (42715) Diagnoses BPH loc w urin obs/LUTS N40.1 Slowing of urinary stream R39.198 CPT Codes Post Residual Void - PVR CPT Code: 94421-Dfxm Void Residual by ultrasound ([id number])
== END 2023-12-15 12:09 | disposition home or self-care (01) ==
PROVIDERS: PCP Family Medicine; Visit Provider Urology
DX: N40.1 Benign prostatic hyperplasia with lower urinary tract symptoms (principal); R39.198 Other difficulties with micturition
CPT/HCPCS: 99213

== ENCOUNTER → 2023-12-15 10:57 | Outpatient (BNVA) | payer MEDICARE, SELFPAY | PROVIDERS: PCP Family Medicine; Visit Provider Urology | DX: N40.1 Benign prostatic hyperplasia with lower urinary tract symptoms (principal); N13.8 Other obstructive and reflux uropathy; R35.1 Nocturia; R39.198 Other difficulties with micturition | CPT/HCPCS: 51798; 81003; 99212 ==

== ENCOUNTER 2024-04-23 10:21 | Outpatient (REF) | payer MEDICARE, SELFPAY ==
--- OUTSIDE RECORDS SUMMARY | 2024-04-23 10:24 | XMS_ITS | Clinical Summary ---
Author Organization [facility] Address [address] [place] [address] Care Team Providers Care [employer] Name Role Phone Castillo Marina MD Primary Care Provider +1- [phone] Surgical History Surgery Date Site/Laterality Comments COLONOSCOPY PROCEDURE:COLONOSCOPY UPPER GASTROINTESTINAL ENDOSCOPY PROCEDURE:UPPER GASTROINTESTINAL ENDOSCOPY TONSILLECTOMY PROCEDURE:TONSILLECTOMY DENTAL SURGERY PROCEDURE:DENTAL SURGERY;COMMENT:wisdom teeth SHOULDER SURGERY 2016 Left PROCEDURE:SHOULDER SURGERY;COMMENT:Rotator cuff repair HERNIA REPAIR 2011 PROCEDURE:HERNIA REPAIR;COMMENT:abd LUMBAR DISC SURGERY 1983 PROCEDURE:LUMBAR DISC SURGERY;COMMENT:L5 Medical History Medical History Date Comments Osteoarthritis DX:Osteoarthriti s Cough DX:Cough;COMMENT :daily Hyperlipidemia DX:Hyperlipidemi a Heart murmur DX:Heart murmur GERD (gastroesophageal reflux disease) DX:GERD (gastroesophageal reflux disease) Hiatal hernia DX:Hiatal hernia PONV (postoperative nausea and vomiting) 2011 DX:PONV (postoperative nausea and vomiting);COMMENT:N&V IPF (idiopathic pulmonary fi brosis) ([facility]) DX:IPF (idiopathic pulmonary fibrosis) ([facility]) Family History Medical History Relation Name Comments No Known Problems Brother 1 No Known Problems Brother 2 Hypertension Father Heart disease Mother CABGx3 Bipolar disorder Sister 3 1 sister Relation Name Status Comments Brother 1 (Age 22) House fire Brother 2 (Age 24) MVA Father (Age 78) ALS Mother (Age 95) Heart fail ure Sister 3 Alive Social History Tobacco Use Types Packs/Day Years Used Date Smoking Tobacco: Former Cigarettes Q uit: 03/07/1972 Smokeless Tobacco: Never Alcohol Use Standard Drinks/Week Comments Yes 0 (1 standard drink = 0.6 oz pur e alcohol) Sex and Gender Information Value Date Recorded Sex Assigned at Not on file Legal Sex Male 7:50 PM EST Gender Identity Not on file Sexual Orientation Not on file Obstetrics History Last Filed Vital Signs Vital Sign Reading Time Taken Comments Blood Pressure 136/88 06/03/2021 2:18 PM EDT Pulse 56 06/01/2021 1:34 PM EDT Temperature - - Respiratory Rate - - Oxygen Saturation - - Inhaled Oxygen Concentration - - Weight 66.2 kg (146 lb) 06/01/2021 1:34 PM EDT Height 157.5 cm (5' 2.01 ) 06/01/2021 1:34 PM ED T Body Mass Index 26.7 06/01/2021 1:34 PM EDT Plan of Treatment Health Maintenance Due Date Last Done Comments DTaP,Tdap,and Td Vaccines (1 - Tdap) 1961 Pneumococcal Vaccine: 50+ Years (1 of 1 - PCV) 01/20/1992 Zoster Vaccines (1 of 2) 01/20/1992 RSV Immunization Patients 60 + Years Old (1 - 1-dose 75+ series) 2017 Cholesterol Screening (Lipid Panel) 02/06/2022 Depression Screening 02/06/2022 Falls Risk Assessment 02/06/2022 Social Influencers of Health Screening 02/06/2022 COVID-19 Vaccine (4 - 2023-2 5 season) 2023 09/26/2020, 04/08/2020, 03/13/2020 Influenza Vaccine (#1) 2023 HIB Vaccines Aged Out No longer eligi ble based on patient's age to complete this topic HPV Vaccines Aged Out No longer eligi ble based on patient's age to complete this topic Hepatitis A Vaccines Aged Out No long er eligible based on patient's age to complete this topic Hepatitis B Vaccines Aged Out No long er eligible based on patient's age to complete this topic IPV Vaccines Aged Out No longer eligi ble based on patient's age to complete this topic MMR Vaccines Aged Out No longer eligi ble based on patient's age to complete this topic Meningococcal ACWY Vaccine Aged Out N o longer eligible based on patient's age to complete this topic Meningococcal B Vacine Aged Out No lo nger eligible based on patient's age to complete this topic RSV Immunization Patients Under 20 months Aged Out No longer eligible b ased on patient's age to complete this topic Varicella Vaccines Aged Out No longer eligible based on patient's age to complete this topic Medical Devices Implanted Type Area Program Development Manager Device Identifier Shelf Expiration Date Model / Serial / Lot Knee Fem Bsplt W Pa Stry-Howm [id number] Implanted:Qty: 1 on 06/18/2021 by Cesar Villegas MD Left: Knee [employer] [id number] 04/02/2026 5517-F-401 / / [id number] Knee Bsplt Triathlon Ti Sz 5 Stry-Howm [id number] Implanted:Qty: 1 on 06/18/2021 by Cesar Villegas MD Left: Knee [employer] [id number] 04/14/2026 5536-B-500 / / [id number] Knee Ptla Asym Tritanium 38x11 Stry-Howm [id number] Implanted:Qty: 1 on 06/18/2021 by Cesar Villegas MD Left: Knee [employer] [id number] 02/01/2026 5552-L-381 / / [id number] Insert Triathlon 10mm 5 Bearin Stry-How [id number] Implanted:Qty: 1 on 06/18/2021 by Cesar Villegas MD Left: Knee [employer] [id number] 06/18/2025 5531-P-510 / / [id number] Care Teams [employer] Relationship Specialty Start Date End Date Castillo Marina MD [address] [place] [id number] PCP - General Internal Medicine 05/14/21
--- OUTSIDE RECORDS SUMMARY | 2024-04-23 10:24 | XMS_ITS | Clinical Summary ---
Author Organization [facility] Address [address] [place] [address] Care Team Providers Care On Site Soil Evaluator Name Role Phone Castillo Marina MD Primary Care Provider +1- [phone] Allergies No known active allergies Medications Medication Sig Dispensed Refills Start Date End Date Status omeprazole (PriLOSEC) 20 MG capsule Take 20 mg by mouth daily. 0 Active gabapentin (NEURONTIN) 600 MG tablet Take 600 mg by mouth 3 (three) times a day. 0 Active atorvastatin (LIPITOR) tablet 40 mg Take 40 mg by mouth daily. 0 03/01/2021 Active albuterol (PROVENTIL) (2.5 MG/3ML) 0.083% nebulizer solution Take 2.5 mg by nebulization daily. 0 05/14/2021 Active Multiple Minerals-Vitamins (CALCIUM & VIT D3 BONE HEALTH PO) Take 1 tablet by mouth 3 (three) times a day. 0 Active acetaminophen (TYLENOL EXTRA STRENGTH) 500 MG tablet Take 2 tablets (1,000 mg total) by mouth every 8 (eight) hours as needed for pain. 60 tablet 0 06/19/2021 Active methocarbamol (ROBAXIN) 750 MG tablet Take 1 tablet (750 mg total) by mouth every 6 (six) hours as needed (spasm). 50 tablet 0 06/19/2021 Active oxyCODONE (ROXICODONE) 5 MG immediate release tablet Take 1 tablet (5 mg total) by mouth every 4 (four) hours as needed for pain. 40 tablet 0 06/19/2021 Active senna-docusate (PERICOLACE) 8.6-50 MG Take 1 tablet by mouth 2 (two) times a day. Take while using narcotic pain medication to prevent constipation 60 tablet 0 06/19/2021 Active Hospital, Clinic, or Other Facility Administered Medication Ordered Dose Route Frequency Start Date End Date Status regadenoson (LEXISCAN) injection 0.4 mgIndications:Pulmonary fibrosis (HCC) 0.4 mg IV Once 06/03/2021 Active Immunizations Name Administration Dates Next Due Covid-19 (Moderna 12+) 100mcg/0.5mL dosage 09/26,04/08/2020,03/13/2020 Family History Medical History Relation Name Comments No Sig Med Hx Brother 1 No Sig Med Hx Brother 2 Hypertension Father Heart disease Mother CABGx3 Bipolar disorder Sister 3 1 sister Relation Name Status Comments Brother 1 (Age 22) House fire Brother 2 (Age 24) MVA Father (Age 78) ALS Mother (Age 95) Heart fail ure Sister 3 Alive Social History Tobacco Use Types Packs/Day Years Used Date Smoking Tobacco: Former Cigarettes 1 Q uit: 1972 Smokeless Tobacco: Never Alcohol Use Standard Drinks/Week Comments Yes 0 (1 standard drink = 0.6 oz pur e alcohol) Q 3 months 1 glass of wine Sex and Gender Information Value Date Recorded Sex Assigned at Male 05/27/2021 10:50 AM EDT Gender Identity Male 05/27/2021 10:50 AM EDT Sexual Orientation Not on file Job Start Date Occupation Industry Not on file Not on file Not on file Last Filed Vital Signs Vital Sign Reading Time Taken Comments Blood Pressure 128/74 06/19/2021 7:45 AM EDT Pulse 61 06/19/2021 7:45 AM EDT Temperature 36.4 ??C (97.5 ??F) 06/19/2021 7:45 AM ED T Respiratory Rate 20 06/19/2021 7:45 AM EDT Oxygen Saturation 97% 06/19/2021 7:45 AM EDT Inhaled Oxygen Concentration - - Weight 63.5 kg (140 lb) 06/18/2021 9:00 AM EDT Height 172.7 cm (5' 8 ) 06/18/2021 9:00 AM EDT Body Mass Index 21.29 06/18/2021 9:00 AM EDT Plan of Treatment Health Maintenance Due Date Last Done Comments Depression Screening 1954 Preventative Health Evaluation 01/20/1960 DTap / Tdap / Td (1 - Tdap) 1961 Shingrix-Zoster Vaccine (1 o f 2) 01/20/1992 Fall Risk Assessment 2007 Pneumococcal Vaccine (1 of 1 - PCV) 2007 RSV Adult > 60+ Yrs or (1 - 1-dose 75+ series) 2017 COVID-19 Vaccine (4 - 2023-2 5 season) 2023 09/26/2020, 04/08/2020, 03/13/2020 Influenza Vaccine (#1) 2023 Hepatitis B Vaccines Aged Out No long er eligible based on patient's age to complete this topic RSV Ped < 20 months Aged Out No longe r eligible based on patient's age to complete this topic Medical Devices Implanted Type Area Architect Intern Device Identifier Shelf Expiration Date Model / Serial / Lot Knee Fem Bsplt W Pa Stry-Howm [id number] - [id number] Implanted:Qty: 1 on 06/18/2021 by Cesar Villegas MD [place] [facility] Left: Knee [employer] [id number] 04/02/2026 5517-F-401 / / [id number] Knee Bsplt Triathlon Ti Sz 5 Stry-Howm [id number] - [id number] Implanted:Qty: 1 on 06/18/2021 by Cesar Villegas MD at [facility] Left: Knee [employer] [id number] 04/14/2026 5536-B-500 / / [id number] Knee Ptla Asym Tritanium 38x11 Stry-Howm [id number] - [id number] Implanted:Qty: 1 on 06/18/2021 by Cesar Villegas MD at [facility] Left: Knee [employer] [id number] 02/01/2026 5552-L-381 / / [id number] Insert Triathlon 10mm 5 Bearin Stry-Howm [id number] - [id number] Implanted:Qty: 1 on 06/18/2021 by Cesar Villegas MD at [facility] Left: Knee [employer] [id number] 06/18/2025 5531-P-510 / / [id number] Advance Directives For more information, please contact: [phone] Latest Code Status on File Code Status Date Activated Date Inactivated Comments Full Code 06/18/2021 1:18 PM 06/19/2021 7:25 PM This code status was ascertained in the following way: per living will or healthcare instructions . Code Status History Code Status Date Activated Date Inactivated Comments Full Code 06/18/2021 8:49 AM 06/18/2021 1:18 PM This code status was ascertained in the following way: discussion with patient . Care Teams On Site Soil Evaluator Relationship Specialty Start Date End Date Castillo Marina MD [address] [place] [id number] PCP - General Internal Medicine 05/14/21
[2024-04-23 12:45] LABS: Basophils Absolute Auto 0.1 X10*3/uL (0.0-0.2); Basophils Percent Auto 1.2 % (0-2); Eosinophils Absolute Auto 1.9 X10*3/uL (0.0-0.4); Eosinophils Percent Auto 22.4 % (0-4); Hematocrit 44.9 % (42.0-52.0); Imm Gran Abs Auto 0.02 X10*3/uL (0.00-0.03); Imm Gran Pct Auto 0.2 % (0.0-0.4); Lymphocytes Absolute Auto 1.8 X10*3/uL (1.2-4.9); Lymphocytes Percent Auto 21.2 % (20-40); MANUAL DIFF FLAG SCAN; Mean Corpuscular HGB Conc 33.4 g/dl (31.0-36.0); Mean Corpuscular Hemoglobin 29.9 pg (27.0-33.0); Mean Corpuscular Volume 89.4 fL (80.0-98.0); Mean Platelet Volume 10.6 fL (9.4-12.4); Monocytes Absolute Auto 0.7 X10*3/uL (0.1-1.2); Monocytes Percent Auto 8.8 % (2-11); Neutrophils Absolute Auto 3.9 x10*3/uL (2.0-8.3); Neutrophils Percent Auto 46.2 % (45-73); Platelet Count 247 X10*3/uL (160-400); Red Blood Count 5.02 X10*6/uL (4.60-5.80); Red Cell Distribution Width 13.2 % (11.0-16.0); SCAN SMEAR FLAG 1; White Blood Count 8.4 X10*3/uL (4.8-10.8)
[2024-04-23 12:49] LABS: Appearance Urine Clear; Color Urine Yellow; Glucose Urine UA Negative (Negative); Leukocyte Esterase Urine Negative (Negative); Nitrite Urine Negative (Negative); Specific Gravity - Urine 1.015 (1.005-1.025); Urine Blood Negative (Negative); Urine Ketones Negative (Negative); Urine Protein Negative (Neg-Trace)
[2024-04-23 13:07] LABS: Alanine Aminotransferase 14 U/L (0-40); Albumin Level 3.9 g/dL (3.5-5.0); Alkaline Phosphatase 116 U/L (39-117); Anion Gap 13 (12-20); Aspartate Amino Transferase 23 U/L (5-37); Bilirubin Total 0.6 mg/dL (0.0-1.0); Blood Urea Nitrogen 9 mg/dL (9-16); Calcium 9.6 mg/dL (8.4-10.2); Carbon Dioxide 31 mmol/L (22-29); Chloride 101 mmol/L (96-108); Cholesterol 139 mg/dL (<200); Estimated Glomerular Filt Rate > 60; Glucose Fasting 88 mg/dL (60-99); HDL Cholesterol 53 mg/dL (>40); LDL Cholesterol Calculated 73 mg/dL (<100); Potassium 4.5 mmol/L (3.3-5.1); Sodium 140 mmol/L (135-145); Triglycerides 66 mg/dL (<150)
[2024-04-23 13:23] LABS: TSH reflex Free T4 1.07 uIU/mL (0.32-4.0)
[2024-04-23 13:24] LABS: SLIDE REVIEW VERIFIED
[2024-04-23 13:33] LABS: Creatinine Urine 138.78 mg/dL; Microalbum/Creatinine Ratio Ur 3.6 ug/mg cr (<30)
== END 2024-04-23 10:22 | disposition home or self-care (01) ==
LOC: HO.HMGCLDS 10:21
PROVIDERS: PCP Family Medicine; Visit Provider Family Medicine
DX: Z00.00 Encounter for general adult medical examination without abnormal findings (principal); I10 Essential (primary) hypertension
CPT/HCPCS: 36415; 80053; 80061; 81003; 82043; 82570; 84443; 85025

== ENCOUNTER 2024-05-03 14:31 | Outpatient (AMB) | payer MEDICARE, SELFPAY ==
--- NOTE | 2024-05-03 14:57 | MHC.PC.OV ---
Vital Signs 05/03/24 14:59 Height 5 ft 8 in Weight 144 lb 8 oz BMI 22.0 BP 102/66 Blood Pressure Location Lt brachial Position Sitting Respiration 14 Pulse 70 Pulse Source Pulse Oximeter Temp 97.4 F Temp Source Oral Pulse Oximetry (%) 96 Oxygen Delivery Method Room Air Intake Visit Reasons: fu cc and labs Intake Note: follow up labs Allergies No Known Allergies Allergy (Verified 05/03/24 14:58) Tobacco use date assessed: 04/08/23 Dental Screening Dental Screen Date: 04/08/23 HPI fu cc and labs HPI Details 84 y/o male presents to f/u labs, chronic conditions. Labs drawn 04/23/24. Reviewed labs with pt. Triglycerides 66. TC 139. LDL 73. HDL 53. He is on artovastatin 40mg daily. TSH 1.07. Had a hospital visit 04/18/24 for colitis, partial small bowel obstruction. Was placed on a clear liquid diet and MiraLax twice dily. [facility] Medical History (Updated 05/03/24 @ 15:31 by Didier Hernandez) Cecal volvulus Hypotension Surgical History (Updated 10/10/23 @ 14:47 by Jose David Arana MD) Status post colon resection History of surgical procedure (~07/29/23) History of back surgery History of rotator cuff surgery History of ear, nose, and throat (ENT) surgery History of left knee replacement Family History Other Substance use disorder Social History Household Members: Spouse and Other Household Members Other:: independent living Housing: Apartment Alcohol intake: never Patient Tobacco Use Status: Former Tobacco user e-Cigarette/Vaping Use: Never Used Second Hand Smoke Exposure: No service: No Current occupational status: retired Current occupational exposures/hazards: No Cognitive needs: No Hearing needs: Yes (hearing aides) Vision needs: No Questionnaire PHQ-9 Over the last 2 weeks, how often have you been bothered by any of the following problems? 1. Little interest or pleasure in doing things: not at all 2. Feeling down, depressed, or hopeless: not at all 3. Trouble falling or staying asleep, or sleeping too much: not at all 4. Feeling tired or having little energy: not at all 5. Poor appetite or overeating: not at all 6. Feeling bad about yourself - or that you are a failure or have let yourself or your family down: not at all 7. Trouble concentrating on things, such as reading the newspaper or watching television: not at all 8. Moving or speaking so slowly that other people could have noticed. Or the opposite - being so fidgety or restless that you have been moving around a lot more than usual: not at all 9. Thoughts that you would be better off or of hurting yourself in some way: not at all Total score: 0 Source: Developed by Drs. Jr Mcrae, Caitlin Almaguer, Kennedy Joya and colleagues, with an educational armin from [employer]. Thrive Questionnaire Date Thrive assessed: 07/30/23 I am a: Patient What is your living situation today?: I have a steady place to live Within the past 12 months, did the food you bought not last and you didn't have the money to get more?: Often true Within the past 12 months, did you worry whether your food would run out before you got money to buy more?: I choose not to answer this question Do you have trouble paying for medicines?: I choose not to answer this question Do you have trouble getting transportation to medical appointments?: I choose not to answer this question Do you have trouble paying your heating and electricity bill?: I choose not to answer this question Do you have trouble taking care of your child, family member or friend?: I choose not to answer this question Do you have trouble with day-to-day activities such as bathing, preparing meals, shopping, managing finances, etc.?: I choose not to answer this question Are you currently unemployed and looking for a job?: I choose not to answer this question Are you interested in more education?: I choose not to answer this question Please select the resources that you would like help with: None Currently or been in a relationship where the following occur: I choose not to answer THRIVE Score: 1 AUDIT C Alcohol Use Questionnaire (AUDIT-C) 1. How often do you have a drink containing alcohol?: Never Total Score: 0 KARTHIK-7 AMB Questionnaire KARTHIK-7 Date KARTHIK - 7 assessed: 04/15/22 Feeling nervous, anxious, or on edge: 0 = Not at all Not being able to stop or control worryin = Not at all Worrying too much about different things: 0 = Not at all Trouble relaxin = Not at all Being so restless that it is hard to sit still: 0 = Not at all Becoming easily annoyed or irritable: 0 = Not at all Feeling afraid as if something awful might happen: 0 = Not at all Total KARTHIK-7 score (0-4 normal; 5-9 mild; 10-14 moderate; 15-21 severe): 0 Source: Developed by Drs. Jr Mcrae, Caitlin Almaguer, Kennedy Joya and colleagues, with an educational armin from [employer]. Review of Systems Const Denies chills, Denies fatigue, Denies fever(s), Denies headache(s) and Denies weakness ENT Denies dizziness and Denies headache(s) Card Denies chest pain, Denies lightheadedness, Denies dyspnea and Denies other (Palpitations) Resp Denies cough, Denies dyspnea, Denies wheezing and Denies other ( shortness of breath) Musc Denies numbness and Denies tingling Neuro Denies dizziness, Denies headache(s), Denies numbness, Denies tingling, Denies paresthesias and Denies weakness Psych Denies anxiety and Denies depression Endo Denies fatigue Aller/Immun Denies wheezing Physical exam (Primary Care) Vital Signs: Last Vital Signs Temp 97.4 F 05/03/24 14:59 Pulse 70 05/03/24 14:59 Resp 14 05/03/24 14:59 BP 102/66 05/03/24 14:59 Pulse Ox 96 05/03/24 14:59 Oxygen Delivery Method Room Air 05/03/24 14:59 BMI result Body Mass Index 22.0 Tobacco/Smoking Status: Tobacco use Status Tobacco use date assessed 04/08/23 05/03/24 15:02 Patient Tobacco Use Status Former Tobacco user 05/03/24 15:02 e-Cigarette/Vaping Use Never Used 05/03/24 15:02 PHQ-9: PHQ-9 Score PHQ-9: Total score 0 05/03/24 15:30 Thrive Assessment: Date of Thrive Assessment Date Thrive assessed 07/30/23 05/03/24 15:02 Currently or been in a relationship where the following occur: I choose not to answer Const General: no acute distress and well developed Nutritional Appearance: well nourished Orientation/consciousness: patient oriented x3 HENMT Head: Yes normocephalic and Yes atraumatic Eyes General: appearance normal, both eyes and all related structures Pupils: Equal, round and reactive pupils present EOM: EOMs intact bilaterally Resp Effort & Inspection: normal respiratory effort Auscultation: clear to auscultation bilaterally Cardio Rate: regular rate Rhythm: regular rhythm Heart sounds: S1 normal heart sound present, S2 normal heart sound present, no gallops, no murmurs and no rubs Neuro General: patient oriented x3 and gait normal Cranial nerves: Yes Equal, round and reactive pupils present Psych Affect: normal affect Coding Level of Care Code Est Pt Level 4 (73568) Diagnoses Hypertension I10 Hyperlipidemia E78.5 Partial small bowel obstruction K56.600 Colitis K52.9 Neoplasm of uncertain behavior of skin D48.5 Assessment & Plan Assessment & Plan (1) Hypertension: Code(s): I10 - Essential (primary) hypertension Category: Medical Plan: Blood?pressure?is?controlled.??Goal?is?less?than?140/90 No?current?medications Will?continue?monitor (2) Hyperlipidemia: Code(s): E78.5 - Hyperlipidemia, unspecified Category: Medical Plan: Lipids appear?well?controlled?on?atorvastatin Continue?current?medication (3) Partial small bowel obstruction: Code(s): K56.600 - Partial intestinal obstruction, unspecified as to cause Category: Medical Plan: Recent?ED?visit?for?partial?small-bowel?obstruction?and?colitis. These?resolved?with hydration in?stool?softeners He?is?still?taking?MiraLax?in?he?is?hydrating?well. Can?wean?off?MiraLax - resume?if?stools getting?difficult?past. (4) Colitis: Code(s): K52.9 - Noninfective gastroenteritis and colitis, unspecified Category: Medical Plan: As?above (5) Neoplasm of uncertain behavior of skin: Code(s): D48.5 - Neoplasm of uncertain behavior of skin Category: Medical Plan: Referred?to?[facility] Orders: Orders Comprehensive [place]. Panel Fast Today I10 - Essential (primary) hypertension, Z00.00 - Encounter for general adult medical examination without abnormal findings Microalbumin, Random (w Creat) Today I10 - Essential (primary) hypertension Lipid Panel Today E78.5 - Hyperlipidemia, unspecified, Z00.00 - Encounter for general adult medical examination without abnormal findings Referrals Dermatology Referral D48.5 - Neoplasm of uncertain behavior of skin
[2024-05-03 14:59] VITALS: BP 102/66; PULSE 70; RESP 14; TEMP 36.3; O2SAT 96; BMI 22.0
--- OUTSIDE RECORDS SUMMARY | 2024-05-03 17:45 | XMS_ITS | Clinical Summary ---
Author Organization [facility] Address [address] [place] [address] Care Team Providers Care Mulling Machine Operator Name Role Phone Castillo Marina MD Primary Care Provider +1- [phone] Allergies No known active allergies Medications Medication [...] this topic Medical Devices Implanted Type Area Latin Dance Instructor Device Identifier Shelf Expiration Date Model / Serial / Lot Knee Fem Bsplt W Pa Stry-Howm [id number]-[id number] 553 - [id number] Implanted:Qty: 1 on 06/18/2021 by Cesar Villegas MD at [facility] Left: Knee [employer] [id number] 04/02/2026 5517-F-401 / / [id number] Knee Bsplt Triathlon Ti Sz 5 Stry-Howm [id number] 715 - [id number] Implanted:Qty: 1 on 06/18/2021 by Cesar Villegas MD at [facility] Left: Knee [employer] [id number] 04/14/2026 5536-B-500 / / [id number] Knee Ptla Asym Tritanium 38x11 Stry-Howm 7716-P-701-606 041 - [id number] Implanted:Qty: 1 on 06/18/2021 by Cesar Villegas MD at [facility] Left: Knee [employer] [id number] 02/01/2026 5552-L-381 / / [id number] Insert Triathlon 10mm 5 Bearin Stry-Howm 5721-[id number] 479 - [id number] Implanted:Qty: 1 on 06/18/2021 by Cesar Villegas MD at [facility] Left: Knee [employer] [id number] 06/18/2025 5531-P-510 / / [id number] Advance Directives For more information, please contact: [phone] Latest Code Status on File Code Status [...] way: discussion with patient . Care Teams Mulling Machine Operator Relationship Specialty Start Date End Date Castillo Marina MD [address] [place] [id number] PCP - General Internal Medicine 05/14/21
--- OUTSIDE RECORDS SUMMARY | 2024-05-03 17:45 | XMS_ITS | Patient Health Record ---
Author Organization [facility] [address] Address [address] [place] [address] Care Team Providers Care Cardiology Associate Name Role Phone Main GASTON, Quoc Primary Care Provider BALDEV Aguirre Unavailable [phone] Allergies No Known Allergies Reason For Referral No Information Medications Medication SIG (Take, Route, Frequency, Duration) Notes Start Date End Date Status Calcium + D3 Active Aspirin 81 81 MG 1 tablet Orally Once a day for 30 day(s) Active Atorvastatin Calcium 40 MG 1 tablet Oral ly Once a day for 30 day(s) Active Gabapentin 600 MG 1 tablet Orally TID Active Social History Tobacco Use: Social History Observation Description Date Details (start date - stop date) Never Smoker NA - NA Tobacco Use/Smoking Question Answer Notes Are you a nonsmoker Alcohol Screen (Audit-C) Question Answer Notes Did you have a drink containing alcohol in the p ast year? No Points 0 Interpretation Negative Problems Problem Type SNOMED Code ICD Code Onset Dates Problem Status W/U Status Risk Notes Problem Essential hypertension (07281571) Essential (primary) hypertension (I10) Active confirmed Problem Tachycardia (1437667) Tachycardia (R00.0) Active confirmed Problem Hyperlipidemia (42322726) Hyperlipidemia (E78.5) Active confirmed Problem Gastroesophageal reflux disease (403445236) GERD (gastroesophageal reflux disease) (K21.9) Active confirmed Problem 82497144 Pulmonary fibrosis (J84.10) Active confirmed Plan Of Treatment No Information Insurance Providers Payer Name Payer Address Payer Phone Subscriber Number Group Number Insured Name Patient Relationship to Insured Coverage Start Date Coverage End Date [place] of [place] / [facility] [address] [place] [address] [id number] Pardeep Cantrell Self - patient is the insured Medical (General) History Medical History History ICD Code Hyperlipidemia E78.5 GERD (gastroesophageal reflux disease) K 21.9 Tachycardia R00.0 Essential (primary) hypertension I10 Pulmonary fibrosis J84.10 Surgical History Surgery Date(Month/Year) rotator cuff
--- OUTSIDE RECORDS SUMMARY | 2024-05-03 17:45 | XMS_ITS | Clinical Summary ---
Author Organization [facility] Address [address] [place] [address] Care Team Providers Care Termite Inspector Name Role Phone Castillo Marina MD Primary Care Provider +1- [phone] Surgical History Surgery Date Site/Laterality Comments COLONOSCOPY [...] and vomiting);COMMENT:N&V IPF (idiopathic pulmonary fi brosis) ([facility]) DX:IPF (idiopathic pulmonary fibrosis) ([facility]) Family History Medical History Relation [...] this topic Medical Devices Implanted Type Area Promotions Director Device Identifier Shelf Expiration Date Model / Serial / Lot Knee Fem Bsplt W Pa Stry-Howm [id number] Implanted:Qty: 1 on 06/18/2021 by Cesar Villegas MD Left: Knee [employer] [id number] 04/02/2026 5517-F-401 / / [id number] Knee Bsplt Triathlon Ti Sz 5 Stry-Howm [id number] 715 Implanted:Qty: 1 on 06/18/2021 by Cesar Villegas MD Left: Knee [employer] [id number] 04/14/2026 5536-B-500 / / [id number] Knee Ptla Asym Tritanium 38x11 Stry-Howm 2601-[id number] 041 Implanted:Qty: 1 on 06/18/2021 by Cesar Villegas MD Left: Knee [employer] [id number] 02/01/2026 5552-L-381 / / [id number] Insert Triathlon 10mm 5 Bearin Stry-How 7915-[id number] Implanted:Qty: 1 on 06/18/2021 by Cesar Villegas MD Left: Knee [employer] [id number] 06/18/2025 5531-P-510 / / [id number] Care Teams Termite Inspector Relationship Specialty Start Date End Date Castillo Marina MD [address] [place] [phone] PCP - General Internal Medicine 05/14/21
== END 2024-05-03 15:53 | disposition home or self-care (01) ==
PROVIDERS: PCP Family Medicine; Visit Provider Family Medicine
DX: I10 Essential (primary) hypertension (principal); E78.5 Hyperlipidemia, unspecified; K56.600 Partial intestinal obstruction, unspecified as to cause; K52.9 Noninfective gastroenteritis and colitis, unspecified; D48.5 Neoplasm of uncertain behavior of skin

== ENCOUNTER → 2024-05-03 14:31 | Outpatient (BNVA) | payer MEDICARE, SELFPAY | PROVIDERS: PCP Family Medicine; Visit Provider Family Medicine | DX: I10 Essential (primary) hypertension (principal); E78.5 Hyperlipidemia, unspecified; K56.600 Partial intestinal obstruction, unspecified as to cause; K52.9 Noninfective gastroenteritis and colitis, unspecified; D48.5 Neoplasm of uncertain behavior of skin | CPT/HCPCS: 99212 ==

== ENCOUNTER 2024-06-14 09:55 | Outpatient (REF) | payer MEDICARE, SELFPAY ==
--- OUTSIDE RECORDS SUMMARY | 2024-06-14 11:25 | XMS_ITS | Patient Health Record ---
Author Organization [facility] [address] Address [address] [place] [address] Care Team Providers Care Director Gift Name Role Phone Main GASTON, Quoc Primary Care Provider BALDEV Aguirre Unavailable [phone] Allergies No Known Allergies Reason For Referral [...] W/U Status Risk Notes Problem Essential hypertension (51992866) Essential (primary) hypertension (I10) Active confirmed Problem Tachycardia (4848487) Tachycardia (R00.0) Active confirmed Problem Hyperlipidemia (67593262) Hyperlipidemia (E78.5) Active confirmed Problem Gastroesophageal reflux disease (426110278) GERD (gastroesophageal reflux disease) (K21.9) Active confirmed Problem 54263817 Pulmonary fibrosis (J84.10) Active confirmed Plan Of Treatment No Information Insurance Providers Payer Name Payer Address Payer Phone Subscriber Number Group Number Insured Name Patient Relationship to Insured Coverage Start Date Coverage End Date [place] of [place] / [facility] [address] [place] [address] [id number] Pardeep Cantrell Self - patient is the insured Medical (General) History Medical History History ICD Code Hyperlipidemia E78.5 GERD (gastroesophageal reflux disease) K 21.9 Tachycardia R00.0 Essential (primary) hypertension I10 Pulmonary fibrosis J84.10 Surgical History Surgery Date(Month/Year) rotator cuff
--- OUTSIDE RECORDS SUMMARY | 2024-06-14 11:25 | XMS_ITS | Clinical Summary ---
Author Organization [facility] Address [address] [place] [address] Care Team Providers Care Re Etcher Name Role Phone Castillo Marina MD Primary Care Provider +1- [phone] Surgical History Surgery Date Site/Laterality Comments COLONOSCOPY [...] fi brosis) ([facility] V24, [facility] V28) DX:IPF (idiopathic pulmonar y fibrosis) ([facility]) Family History Medical History Relation Name Comments [...] Vaccines (1 of 2) 01/20/1992 RSV Immunization Adult Patients (1 - 1-dose 75+ series) 2017 Cholesterol Screening (Lipid Panel) 02/06/2022 Depression Screening 02/06/2022 Falls Risk Assessment 02/06/2022 Social Influencers of Health Screening 02/06/2022 COVID-19 Vaccine ( - 2023-2 5 season) 2023 09/26/2020, 04/08/2020, 03/13/2020 Influenza Vaccine (Season Ended) 2024 HIB Vaccines Aged Out No longer eligi [...] age to complete this topic Meningococcal B Vaccine Aged Out No l onger eligible based on patient's age to complete this topic RSV Immunization Patients Under 20 months Aged Out No longer eligible b ased on patient's age to complete this topic Varicella Vaccines Aged Out No longer eligible based on patient's age to complete this topic Medical Devices Implanted Type Area Staff Psychiatrist Device Identifier Shelf Expiration Date Model / Serial / Lot Knee Fem Bsplt W Pa Stry-Howm [id number] Implanted:Qty: 1 on 06/18/2021 by Cesar Villegas MD Left: Knee [employer] [id number] 04/02/2026 5517-F-401 / / [id number] Knee Bsplt Triathlon Ti Sz 5 Stry-Howm [id number] Implanted:Qty: 1 on 06/18/2021 by Cesar Villegas MD Left: Knee [employer] [id number] 04/14/2026 5536-B-500 / / [id number] Knee Ptla Asym Tritanium 38x11 Stry-Howm [id number] 041 Implanted:Qty: 1 on 06/18/2021 by Cesar Villegas MD Left: Knee [employer] [id number] 02/01/2026 5552-L-381 / / [id number] Insert Triathlon 10mm 5 Bearin Stry-How [id number] Implanted:Qty: 1 on 06/18/2021 by Cesar Villegas MD Left: Knee [employer] [id number] 06/18/2025 5531-P-510 / / [id number] Care Teams Re Etcher Relationship Specialty Start Date End Date Castillo Marina MD [address] [place] [phone] PCP - General Internal Medicine 05/14/21
--- OUTSIDE RECORDS SUMMARY | 2024-06-14 11:25 | XMS_ITS | Clinical Summary ---
Author Organization [facility] Address [address] [place] [address] Care Team Providers Care Squeegeer And Former Name Role Phone Castillo Marina MD Primary Care Provider +1- [phone] Allergies No known active allergies Medications Medication [...] this topic Medical Devices Implanted Type Area Director Medical Surgical Device Identifier Shelf Expiration Date Model / Serial / Lot Knee Fem Bsplt W Pa Stry-Howm 6219-P-[id number] 553 - [id number] Implanted:Qty: 1 on 06/18/2021 by Cesar Villegas [place] [facility] Left: Knee [employer] [id number] 04/02/2026 5517-F-401 / / [id number] Knee Bsplt Triathlon Ti Sz 5 Stry-Howm [id number] 715 - [id number] Implanted:Qty: 1 on 06/18/2021 by Cesar Villegas MD at [facility] Left: Knee [employer] [id number] 04/14/2026 5536-B-500 / / [id number] Knee Ptla Asym Tritanium 38x11 Stry-Howm 6838-[id number] 041 - [id number] Implanted:Qty: 1 on 06/18/2021 by Cesar Villegas MD at [facility] Left: Knee [employer] [id number] 02/01/2026 5552-L-381 / / [id number] Insert Triathlon 10mm 5 Bearin Stry-Howm 2908-[id number]-[id number] 479 - [id number] Implanted:Qty: 1 on 06/18/2021 by Cesar Villegas MD at [facility] Left: Knee [employer] [id number] 06/18/2025 5531-P-510 / / [id number] Advance Directives For more information, please contact: [phone] Latest Code Status on File Code Status [...] way: discussion with patient . Care Teams Squeegeer And Former Relationship Specialty Start Date End Date Castillo Marina MD [address] [place] [address] PCP - General Internal Medicine 05/14/21
[2024-06-14 14:03] LABS: Alanine Aminotransferase 8 U/L (0-40); Alkaline Phosphatase 89 U/L (39-117); Anion Gap 11 (12-20); Aspartate Amino Transferase 25 U/L (5-37); Bilirubin Total 0.8 mg/dL (0.0-1.0); Blood Urea Nitrogen 7 mg/dL (9-16); Calcium 9.4 mg/dL (8.4-10.2); Carbon Dioxide 30 mmol/L (22-29); Chloride 100 mmol/L (96-108); Cholesterol 144 mg/dL (<200); Estimated Glomerular Filt Rate > 60; Glucose Fasting 84 mg/dL (60-99); HDL Cholesterol 57 mg/dL (>40); LDL Cholesterol Calculated 75 mg/dL (<100); Potassium 4.2 mmol/L (3.3-5.1); Sodium 137 mmol/L (135-145); Total Protein 6.5 g/dL (6.5-8.0); Triglycerides 62 mg/dL (<150)
[2024-06-14 14:17] LABS: Creatinine Urine 86.48 mg/dL; Microalbum/Creatinine Ratio Ur 6.9 ug/mg cr (<30)
== END 2024-06-14 09:56 | disposition home or self-care (01) ==
LOC: HO.HMGCLDS 09:55
PROVIDERS: PCP Family Medicine; Visit Provider Family Medicine
DX: Z00.00 Encounter for general adult medical examination without abnormal findings (principal); I10 Essential (primary) hypertension; E78.5 Hyperlipidemia, unspecified
CPT/HCPCS: 36415; 80053; 80061; 82043; 82570

== ENCOUNTER 2024-06-21 13:51 | Outpatient (AMB) | payer MEDICARE, SELFPAY ==
--- NOTE | 2024-06-21 14:24 | AM.OFFVISMDC ---
Intake Vital Signs 06/21/24 14:34 Height 5 ft 8 in Weight 142 lb 4 oz BMI 21.6 BP 120/72 Blood Pressure Location Lt brachial Position Sitting Respiration 12 Pulse 87 Pulse Source Pulse Oximeter Pulse Oximetry (%) 96 Oxygen Delivery Method Room Air Intake Visit Reasons: MAWV Intake Note: Medical annual wellness Data Quality Consultant Required: No Allergies No Known Allergies Allergy (Verified 05/03/24 14:58) Medication List - Last Reconciled 06/21/24 by Odalis John PA-C atorvastatin 40 mg PO DAILY 90 days gabapentin 600 mg PO TID 30 days tamsulosin 0.4 mg PO BEDTIME HPI MAWV HPI Details Patient is an 84-year-old male with a significant past medical history of BPH, hypertension, chronic cough, pulmonary fibrosis, hyperlipidemia presenting today for a Medicare wellness visit. He is accompanied today by his . GI: He does request today referral to GI as he has had issues with frequent loose stools and ?digestive issues ?. In April he reports being hospitalized for a partial small bowel obstruction and diagnosed with colitis as well. He states that since the hospitalization he has been using MiraLax twice a day and he has not tried reducing this are just going on a stool softener. Initially upon discharge from the hospital he was on Colace and MiraLax but slowly weaned from the Colace. He denies any blood or mucus in his stool but he states his stomach just does not feel right. He would like to see a drywall applicator. Can not recall his last colonoscopy. Denies any nausea, vomiting or weight loss. No fevers or chills. No abdominal pain. CV: Blood pressure today in the office is 120/72. He is not on any antihypertensives. Cholesterol has been well managed with atorvastatin 40 mg. Recently completed labs. Reviewed the lipid panel today. No chest pain or shortness on breath. He is not following with any specialists. States that he is overall stable and well-controlled. [facility] Medical History (Updated 06/21/24 @ 14:53 by Odalis John PA-C) Cecal volvulus Hypotension Surgical History (Updated 10/10/23 @ 14:47 by Jose David Arana MD) Status post colon resection History of surgical procedure (~07/29/23) History of back surgery History of rotator cuff surgery History of ear, nose, and throat (ENT) surgery History of left knee replacement Family History Other Substance use disorder Social History Household Members: Spouse and Other Household Members Other:: independent living Housing: Apartment Alcohol intake: never Patient Tobacco Use Status: Former Tobacco user e-Cigarette/Vaping Use: Never Used Second Hand Smoke Exposure: No service: No Current occupational status: retired Current occupational exposures/hazards: No Cognitive needs: No Hearing needs: Yes (hearing aides) Vision needs: No Questionnaire Medicare Wellness Checkup What is your age?: 82 or older What gender do you identify with?: male During the past 4 weeks, how much have you been bothered by emotional problems such as feeling anxious, depressed, irritable, sad or downhearted, and blue?: not at all During the past 4 weeks, has your physical & emotional health limited your social activities with family, friends, neighbors, or groups?: not at all During the past 4 weeks, was someone available to help you if you needed & wanted help?: yes, as much as I wanted During the past 4 weeks, what was the hardest physical activity you could do for at least 2 minutes?: moderate Can you get to places out of walking distance without help? (For eg., can you travel alone on buses, taxis or drive your car?): Yes Can you go shopping for groceries or clothes without someone's help?: Yes Can you prepare your own meals?: Yes Can you do your housework without help?: Yes Because of any health problems, do you need the help of another person with your personal care needs such as eating, bathing, dressing or getting around the house?: No Can you handle your own money without help?: Yes During the past 4 weeks, how would you rate your health in general?: fair During the past 4 weeks how have things been going for you?: pretty well Are you having difficulties driving your car?: no Do you always fasten your seat belt when you are in a car?: yes, usually During past 4 weeks, have you been bothered by the following: never: Falling or dizzy when standing up, Trouble eating well?, Teeth or denture problems?, Problems using the telephone? and Tiredness or fatigue? and often: Sexual problems? Have you fallen 2 or more times in the past year?: No Are you afraid of falling?: No Are you a smoker?: no During the past 4 weeks, how many drinks of wine, beer, or other alcoholic beverages did you have?: no alcohol at all Do you exercise for about 20 minutes 3 or more times a week?: yes, most of the time Have you been given information to help with the following?: yes: Keeping track of your medications? and no: Hazards in your house that might hurt you? How often do you have trouble taking medicines the way you have been told to take them?: I always take medicine as prescribed How confident are you that you can control & manage most of your health problems?: somewhat confident What is your race?: Other (declined) Mini Mental State Exam (MMSE) Orientation What is the (year) (season) (date) (day) (month)?: year (2024), season (spring), date (06/21/2024), day and month Where are we (state) (county) (town or city) (hospital) (floor)?: state ([place]), county ([place]), town or city ([place]), hospital/clinic ([facility] ) and floor (first) Registration Name of 3 unrelated objects clearly and slowly, then ask patient to repeat all 3 of them. (1st repeat determines score. Make sure they can repeat all three): object 1 (Ball), object 2 (Flag) and object 3 (tree) Attention & Calculation (CHOOSE ONE) Spell WORLD backwards (DLROW): 5 letters Recall Ask patient to repeat the 3 items from question #3.: object 1 (ball), object 2 (flag) and object 3 (tree) Language Show patient a wristwatch & ask what it is. Repeat for pencil.: watch and pencil Ask the patient to repeat the phrase 'No ifs, ands, or buts' after you.: correct Ask the patient to 'take a piece of paper with their right hand' 'fold paper in half' 'place paper on floor': take paper in right hand Print the sentence 'CLOSE YOUR EYES' on a piece. If patient actually closes eyes then score.: followed written direction Give patient a blank piece of paper & ask to write a sentence. Score if it contains a noun & verb.: sentence contains subject and verb Ask patient to copy figure of intersecting pentagons exactly. Score if all 10 angles & 2 intersects are included.: all 10 angles present & 2 are intersected Score Score: 28 PHQ-9 Over the last 2 weeks, how often have you been bothered by any of the following problems? 1. Little interest or pleasure in doing things: not at all 2. Feeling down, depressed, or hopeless: not at all 3. Trouble falling or staying asleep, or sleeping too much: more than half the days 4. Feeling tired or having little energy: not at all 5. Poor appetite or overeating: not at all 6. Feeling bad about yourself - or that you are a failure or have let yourself or your family down: not at all 7. Trouble concentrating on things, such as reading the newspaper or watching television: not at all 8. Moving or speaking so slowly that other people could have noticed. Or the opposite - being so fidgety or restless that you have been moving around a lot more than usual: not at all 9. Thoughts that you would be better off or of hurting yourself in some way: not at all Total score: 2 Depression Screening Interpretation: Negative Depression Screening Done: Yes 56875 - PHQ-9 Billing: Yes Source: Developed by Drs. Jr Mcrae, Caitlin Almaguer, Kennedy Joya and colleagues, with an educational armin from [employer]. Physical Exam Vital Signs: Last Vital Signs Pulse 87 06/21/24 14:34 Resp 12 06/21/24 14:34 BP 120/72 06/21/24 14:34 Pulse Ox 96 06/21/24 14:34 Oxygen Delivery Method Room Air 06/21/24 14:34 BMI result Body Mass Index 21.6 Const Orientation/consciousness: patient oriented x3 HEENT Ears: hearing grossly normal bilaterally Neck Thyroid: Thyroid normal Lymphatic: no lymphadenopathy noted Resp Auscultation: clear to auscultation bilaterally Cardio Rate: regular rate Rhythm: regular rhythm Heart sounds: S1 normal heart sound present and S2 normal heart sound present GI Inspection: Yes normal to inspection Palpation (GI): Soft to palpation and Other GI palpation findings present (nontender, no cva tenderness) Auscultation: normoactive bowel sounds Rectal Exam - Male: Yes deferred Skin General skin exam: no rashes or lesions noted Neuro General: patient oriented x3, gait normal and no focal motor deficits Assessment & Plan Assessment & Plan (1) Medicare annual wellness visit, subsequent: Code(s): Z00.00 - Encounter for general adult medical examination without abnormal findings Plan: Health maintenance reviewed. Labs reviewed today with patient. Offered MOLST form. Declined. They have a will. EKG completed today in office Overall feels safe at home and has no concerns regarding activities of daily living. (2) Colitis: Code(s): K52.9 - Noninfective gastroenteritis and colitis, unspecified Plan: Abdominal exam is benign. Referral to GI (3) Diarrhea: Code(s): R19.7 - Diarrhea, unspecified Plan: I have encouraged patient to stop using the MiraLax twice a day and to switch to just a stool softener if needed. He states that he has plenty of Colace at home. I have put in the referral to GI for him. Orders: Referrals Gastroenterology Referral K52.9 - Noninfective gastroenteritis and colitis, unspecified, R19.7 - Diarrhea, unspecified Quality Reporting (2019) Depression/Bipolar (159/160/161/177) PHQ-9: Total score: 2 Coding Level of Care Code Medicare Subsequent (G0439) Est Pt Level 3 (17969) Diagnoses Medicare annual wellness visit, subsequent Z00.00 Colitis K52.9 Diarrhea R19.7 Additional Codes PHQ-9 - 90760 - PHQ-9 Billing: Yes ([id number]) Advance Care Planning Advance Care Planning discussion: Declined forms
[2024-06-21 14:34] VITALS: BP 120/72; PULSE 87; RESP 12; O2SAT 96; BMI 21.6
--- OUTSIDE RECORDS SUMMARY | 2024-06-21 16:57 | XMS_ITS | Clinical Summary ---
Author Organization [facility] Address [address] [place] [address] Care Team Providers Care Letterer Name Role Phone Castillo Marina MD Primary Care Provider +1- [phone] Allergies No known active allergies Medications Medication [...] this topic Medical Devices Implanted Type Area Fusion Analyst Device Identifier Shelf Expiration Date Model / Serial / Lot Knee Fem Bsplt W Pa Stry-Howm [id number] - [id number] Implanted:Qty: 1 on 06/18/2021 by Cesar Villegas MD at [facility] Left: Knee [employer] [id number] 04/02/2026 5517-F-401 / / [id number] Knee Bsplt Triathlon Ti Sz 5 Stry-Howm [id number] - [id number] Implanted:Qty: 1 on 06/18/2021 by Cesar Villegas MD at [facility] and Med Left: Knee [employer] [id number] 04/14/2026 5536-B-500 / / [id number] Knee Ptla Asym Tritanium 38x11 Stry-Howm [id number] - [id number] Implanted:Qty: 1 on 06/18/2021 by Cesar Villegas MD at [facility] and Med Left: Knee [employer] [id number] 02/01/2026 5552-L-381 / / [id number] Insert Triathlon 10mm 5 Bearin Stry-Howm [id number] - [id number] Implanted:Qty: 1 on 06/18/2021 by Cesar Villegas MD at [facility] Left: Knee [employer] [id number] 06/18/2025 5531-P-510 / / [id number] Advance Directives For more information, please contact: [phone] Latest Code Status on File Code Status [...] way: discussion with patient . Care Teams Letterer Relationship Specialty Start Date End Date Castillo Marina MD [address] [place] [id number] PCP - General Internal Medicine 05/14/21
--- OUTSIDE RECORDS SUMMARY | 2024-06-21 16:57 | XMS_ITS | Clinical Summary ---
Author Organization [facility] Address [address] [place] [address] Care Team Providers Care Demo Event Specialist Name Role Phone Castillo Marina MD Primary Care Provider +1- [phone] Surgical History Surgery Date Site/Laterality Comments COLONOSCOPY [...] and vomiting);COMMENT:N&V IPF (idiopathic pulmonary fi brosis) ([facility] V24, [facility] V28) DX:IPF (idiopathic pulmonar y fibrosis) ([facility]) Family History Medical History Relation Name [...] this topic Medical Devices Implanted Type Area Territory Supervisor Device Identifier Shelf Expiration Date Model / Serial / Lot Knee Fem Bsplt W Pa Stry-Howm [id number] Implanted:Qty: 1 on 06/18/2021 by Cesar Villegas MD Left: Knee [employer] [id number] 04/02/2026 5517-F-401 / / [id number] Knee Bsplt Triathlon Ti Sz 5 Stry-Howm [id number] Implanted:Qty: 1 on 06/18/2021 by Cesar Villegas MD Left: Knee [employer] [id number] 04/14/2026 5536-B-500 / / [id number] Knee Ptla Asym Tritanium 38x11 Stry-Howm [id number] Implanted:Qty: 1 on 06/18/2021 by Cesar Villegas MD Left: Knee [employer] [id number] 02/01/2026 5552-L-381 / / [id number] Insert Triathlon 10mm 5 Bearin Stry-How [id number] Implanted:Qty: 1 on 06/18/2021 by Cesar Villegas MD Left: Knee [employer] [id number] 06/18/2025 5531-P-510 / / [id number] Care Teams Demo Event Specialist Relationship Specialty Start Date End Date Castillo Marina MD [address] [place] [id number] PCP - General Internal Medicine 05/14/21
--- OUTSIDE RECORDS SUMMARY | 2024-06-21 16:57 | XMS_ITS | Patient Health Record ---
Author Organization [facility] [address] Address [address] [place] [address] Care Team Providers Care Alodize Machine Helper Name Role Phone Main GASTON, Quoc Primary Care Provider BALDEV Aguirre Unavailable [phone] Allergies No Known Allergies Reason For Referral [...] W/U Status Risk Notes Problem Essential hypertension (39220035) Essential (primary) hypertension (I10) Active confirmed Problem Tachycardia (9090974) Tachycardia (R00.0) Active confirmed Problem Hyperlipidemia (38685441) Hyperlipidemia (E78.5) Active confirmed Problem Gastroesophageal reflux disease (669047141) GERD (gastroesophageal reflux disease) (K21.9) Active confirmed Problem [id number] Pulmonary fibrosis (J84.10) Active confirmed Plan Of Treatment No Information Insurance Providers Payer Name Payer Address Payer Phone Subscriber Number Group Number Insured Name Patient Relationship to Insured Coverage Start Date Coverage End Date Medicare of [place] [facility] [address] [place] [address] [id number] Pardeep Cantrell Self - patient is the insured Medical (General) History Medical History History ICD Code Hyperlipidemia E78.5 GERD (gastroesophageal reflux disease) K 21.9 Tachycardia R00.0 Essential (primary) hypertension I10 Pulmonary fibrosis J84.10 Surgical History Surgery Date(Month/Year) rotator cuff
== END 2024-06-21 15:15 | disposition home or self-care (01) ==
LOC: HO.HMCFM 13:52
PROVIDERS: PCP Family Medicine; Visit Provider Physician Assistant
DX: Z00.00 Encounter for general adult medical examination without abnormal findings (principal); K52.9 Noninfective gastroenteritis and colitis, unspecified

== ENCOUNTER → 2024-06-21 13:51 | Outpatient (BNVA) | payer MEDICARE, SELFPAY | PROVIDERS: PCP Family Medicine; Visit Provider Physician Assistant | DX: Z00.00 Encounter for general adult medical examination without abnormal findings (principal); K52.9 Noninfective gastroenteritis and colitis, unspecified | CPT/HCPCS: 93005; 96127; 99212 ==

== ENCOUNTER 2024-09-24 14:33 | Outpatient (AMB) | payer MEDICARE, SELFPAY ==
--- NOTE | 2024-09-24 14:43 | A.OFFPC_ITS ---
Vital Signs 09/24/24 14:45 Height 5 ft 8 in Weight 135 lb BMI 20.5 BP 108/70 Blood Pressure Location Lt brachial Position Sitting Respiration 12 Pulse 90 Pulse Source Pulse Oximeter Temp 97.7 F Temp Source Temporal Artery Scan Pulse Oximetry (%) 95 Oxygen Delivery Method Room Air Intake Visit Reasons: f/u chronic conditions Intake Note: Pardeep is following up for chronic conditions. Allergies No Known Allergies Allergy (Verified 09/24/24 14:44) Tobacco use date assessed: 09/24/24 Fall risk assessment: No Falls in past year Last assessed Fall Risk: 09/24/24 Dental Screening Dental Screen Date: 09/24/24 Did you have a dental visit in the last 12 months?: Yes Did you have a dental problem in the last 6 months where you did not have access to dental care?: No Was dental information given to patient?: Patient has dentist HPI f/u chronic conditions HPI Details 84 y/o male [facility]. Last labs drawn 06/14/24. Reviewed labs with pt. Triglycerides 62. TC 144. LDL 75. HDL 57. He is on artovastatin 40mg daily. Blood pressure today 108/70. He is not on any BP meds. Pt notes straining while on the toilet. Has been using miralax. [facility] Medical History (Updated 09/24/24 @ 15:07 by Didier Hernandez) Cecal volvulus Hypotension Surgical History (Updated 10/10/23 @ 14:47 by Jose David Arana MD) Status post colon resection History of surgical procedure (~07/29/23) History of back surgery History of rotator cuff surgery History of ear, nose, and throat (ENT) surgery History of left knee replacement Family History Other Substance use disorder Social History (Updated 09/24/24 @ 14:45 by Dot oJe MA) Household Members: Spouse and Other Household Members Other:: independent living Housing: Apartment Alcohol intake: never Patient Tobacco Use Status: Former Tobacco user e-Cigarette/Vaping Use: Never Used Second Hand Smoke Exposure: No Use of substances other than those prescribed or required for medical reasons: No service: No Current occupational status: retired Current occupational exposures/hazards: No Cognitive needs: No Hearing needs: Yes (hearing aides) Vision needs: No Questionnaire Thrive Questionnaire Date Thrive assessed: 05/03/24 I am a: Patient What is your living situation today?: I have a steady place to live Within the past 12 months, did the food you bought not last and you didn't have the money to get more?: Often true Within the past 12 months, did you worry whether your food would run out before you got money to buy more?: I choose not to answer this question Do you have trouble paying for medicines?: I choose not to answer this question Do you have trouble getting transportation to medical appointments?: I choose not to answer this question Do you have trouble paying your heating and electricity bill?: I choose not to answer this question Do you have trouble taking care of your child, family member or friend?: I choose not to answer this question Do you have trouble with day-to-day activities such as bathing, preparing meals, shopping, managing finances, etc.?: I choose not to answer this question Are you currently unemployed and looking for a job?: I choose not to answer this question Are you interested in more education?: I choose not to answer this question Please select the resources that you would like help with: None Currently or been in a relationship where the following occur: I choose not to answer THRIVE Score: 1 KARTHIK-7 AMB Questionnaire KARTHIK-7 Date KARTHIK - 7 assessed: 04/15/22 Source: Developed by Drs. Jr Mcrae, Caitlin Almaguer, Kennedy Joya and colleagues, with an educational armin from [employer]. Review of Systems Const Denies chills, Denies fatigue, Denies fever(s), Denies headache(s) and Denies weakness ENT Denies dizziness and Denies headache(s) Card Denies dyspnea Resp Denies cough, Denies dyspnea, Denies wheezing and Denies other (shortness of breath) GI Reports constipation Musc Denies numbness and Denies tingling Neuro Denies dizziness, Denies headache(s), Denies numbness, Denies tingling and Denies weakness Psych Denies anxiety and Denies depression Endo Denies fatigue Aller/Immun Denies wheezing Physical exam (Primary Care) Vital Signs: Last Vital Signs Temp 97.7 F 09/24/24 14:45 Pulse 90 09/24/24 14:45 Resp 12 09/24/24 14:45 BP 108/70 09/24/24 14:45 Pulse Ox 95 09/24/24 14:45 Oxygen Delivery Method Room Air 09/24/24 14:45 BMI result Body Mass Index 20.5 Tobacco/Smoking Status: Tobacco use Status Tobacco use date assessed 09/24/24 09/24/24 14:48 Patient Tobacco Use Status Former Tobacco user 09/24/24 14:45 e-Cigarette/Vaping Use Never Used 09/24/24 14:45 Thrive Assessment: Date of Thrive Assessment Date Thrive assessed 05/03/24 09/24/24 14:44 Currently or been in a relationship where the following occur: I choose not to answer Const General: well developed; No acute distress Nutritional Appearance: well nourished Orientation/consciousness: patient oriented x3 HENMT Head: Yes normocephalic and Yes atraumatic Eyes General: appearance normal, both eyes and all related structures Pupils: Equal, round and reactive pupils present EOM: EOMs intact bilaterally Resp Effort & Inspection: normal respiratory effort Auscultation: clear to auscultation bilaterally Cardio Rate: regular rate Rhythm: regular rhythm Heart sounds: S1 normal heart sound present, S2 normal heart sound present, no gallops, no murmurs and no rubs Neuro General: patient oriented x3 and gait normal Cranial nerves: Yes Equal, round and reactive pupils present Psych Affect: normal affect Coding Level of Care Code Est Pt Level 3 (51848) Diagnoses Hypertension I10 Hyperlipidemia E78.5 Constipation K59.00 Assessment & Plan Assessment & Plan (1) Hypertension: Code(s): I10 - Essential (primary) hypertension Category: Medical Plan: Patient no longer on blood pressure medications. Blood pressure remains well controlled Will continue to monitor (2) Hyperlipidemia: Code(s): E78.5 - Hyperlipidemia, unspecified Category: Medical Plan: Lipids are well controlled. LDL goal is less than 100 Continue atorvastatin as prescribed (3) Constipation: Code(s): K59.00 - Constipation, unspecified Category: Medical Plan: Hydrate well Can use MiraLax as prescribed Can try soluble fiber as well Avoid straining Orders: Orders Comprehensive [place]. Panel Fast Today K59.00 - Constipation, unspecified, Z00.00 - Encounter for general adult medical examination without abnormal findings Microalbumin, Random (w Creat) Today I10 - Essential (primary) hypertension, R73.01 - Impaired fasting glucose Lipid Panel Today E78.5 - Hyperlipidemia, unspecified, Z00.00 - Encounter for general adult medical examination without abnormal findings TSH reflex Free T4 Today R42 - Dizziness and giddiness, Z00.00 - Encounter for general adult medical examination without abnormal findings UA CC w/rflx Micro + Cult Today Z00.00 - Encounter for general adult medical examination without abnormal findings Complete Blood Count Auto Diff Today R42 - Dizziness and giddiness, Z00.00 - Encounter for general adult medical examination without abnormal findings
[2024-09-24 14:45] VITALS: BP 108/70; PULSE 90; RESP 12; TEMP 36.5; O2SAT 95; BMI 20.5
--- OUTSIDE RECORDS SUMMARY | 2024-09-24 15:25 | XMS_ITS | Clinical Summary ---
Author Organization [facility] Address [address] [place] [address] Care Team Providers Care Press Cleaner Name Role Phone Castillo Marina MD Primary Care Provider +1- [phone] Surgical History Surgery Date Site/Laterality Comments COLONOSCOPY [...] and vomiting);COMMENT:N&V IPF (idiopathic pulmonary fi brosis) ([facility] V24, [facility] V28) DX:IPF (idiopathic pulmonar y fibrosis) ([facility]) Family History Medical History Relation [...] series) 2017 Cholesterol Screening (Lipid Panel) 02/06/2022 Falls Risk Assessment 02/06/2022 Social Influencers of Health Screening 02/06/2022 COVID-19 Vaccine (4 - 2023-2 5 season) 2023 09/26/2020, 04/08/2020, 03/13/2020 Depression Screening 03/07/2024 Influenza Vaccine (#1) 2024 HIB Vaccines Aged Out No longer [...] this topic Medical Devices Implanted Type Area Graphite Pan Drier Tender Device Identifier Shelf Expiration Date Model / Serial / Lot Knee Fem Bsplt W Pa Stry-Howm [id number] Implanted:Qty: 1 on 06/18/2021 by Cesar Villegas MD Left: Knee [employer] [id number] 04/02/2026 5517-F-401 / / [id number] Knee Bsplt Triathlon Ti Sz 5 Stry-Howm [id number] Implanted:Qty: 1 on 06/18/2021 by Cesar Villegas MD Left: Knee [employer] [id number] 04/14/2026 5536-B-500 / / [id number] Knee Ptla Asym Tritanium 38x11 Stry-Howm [id number] Implanted:Qty: 1 on 06/18/2021 by Cesar Villegas MD Left: Knee [employer] [id number] 02/01/2026 5552-L-381 / / [id number] Insert Triathlon 10mm 5 Bearin Stry-How [id number] Implanted:Qty: 1 on 06/18/2021 by Cesar Villegas MD Left: Knee [employer] [id number] 06/18/2025 5531-P-510 / / [id number] Care Teams Press Cleaner Relationship Specialty Start Date End Date Castillo Marina MD [address] [place] [id number] PCP - General Internal Medicine 05/14/21
--- OUTSIDE RECORDS SUMMARY | 2024-09-24 15:25 | XMS_ITS | Patient Health Record ---
Author Organization [facility] [address] Address [address] [place] [address] Care Team Providers Care Design Leader Name Role Phone Main GASTON, Quoc Primary Care Provider BALDEV Aguirre Unavailable [phone] Allergies No Known Allergies Reason For Referral [...] W/U Status Risk Notes Problem Essential hypertension (30817339) Essential (primary) hypertension (I10) Active confirmed Problem Tachycardia (4438874) Tachycardia (R00.0) Active confirmed Problem Hyperlipidemia (55587788) Hyperlipidemia (E78.5) Active confirmed Problem Gastroesophageal reflux disease (997813393) GERD (gastroesophageal reflux disease) (K21.9) Active confirmed Problem 05040204 Pulmonary fibrosis (J84.10) Active confirmed Plan Of Treatment No Information Insurance Providers Payer Name Payer Address Payer Phone Subscriber Number Group Number Insured Name Patient Relationship to Insured Coverage Start Date Coverage End Date Medicare of [place] / [facility] [address] [place] [address] [id number] Pardeep Cantrell Self - patient is the insured Medical (General) History Medical History History ICD Code Hyperlipidemia E78.5 GERD (gastroesophageal reflux disease) K 21.9 Tachycardia R00.0 Essential (primary) hypertension I10 Pulmonary fibrosis J84.10 Surgical History Surgery Date(Month/Year) rotator cuff
--- OUTSIDE RECORDS SUMMARY | 2024-09-24 15:25 | XMS_ITS | Clinical Summary ---
Author Organization [facility] Address [address] [place] [address] Care Team Providers Care Source Water Protection Specialist Name Role Phone Castillo Marina MD Primary Care Provider +1- [phone] Allergies No known active allergies Medications Medication [...] 61 06/19/2021 7:45 AM EDT Temperature 36.4 C (97.5 F) 06/19/2021 7:45 AM EDT Respiratory Rate 20 06/19/2021 7:45 AM EDT [...] 2023 09/26/2020, 04/08/2020, 03/13/2020 Influenza Vaccine (#1) 2024 Hepatitis B Vaccines Aged Out No long er eligible based on patient's age to complete this topic RSV Ped < 20 months Aged Out No longe r eligible based on patient's age to complete this topic Medical Devices Implanted Type Area Vp Project Device Identifier Shelf Expiration Date Model / Serial / Lot Knee Fem Bsplt W Pa Stry-Howm [id number] - [id number] Implanted:Qty: 1 on 06/18/2021 by Cesar Villegas MD at [facility] Left: Knee [employer] [id number] 04/02/2026 5517-F-401 / / [id number] Knee Bsplt Triathlon Ti Sz 5 Stry-Howm [id number] - [id number] Implanted:Qty: 1 on 06/18/2021 by Cesar Villegas MD at [facility] Left: Knee [employer] [id number] 04/14/2026 5536-B-500 / / [id number] Knee Ptla Asym Tritanium 38x11 Stry-Howm [id number] - [id number] Implanted:Qty: 1 on 06/18/2021 by Cesar Villegas MD at [facility] Left: Knee [employer] [id number] 02/01/2026 5552-L-381 / / [id number] Insert Triathlon 10mm 5 Bearin Stry-Howm [id number] - [id number] Implanted:Qty: 1 on 06/18/2021 by Cesar Villegas MD at [facility] Left: Knee [employer] [id number] 06/18/2025 5531-P-510 / / [id number] Advance Directives For more information, please contact: [phone] Latest Code Status on File Code Status [...] way: discussion with patient . Care Teams Source Water Protection Specialist Relationship Specialty Start Date End Date Castillo Marina MD [address] [place] [phone] PCP - General Internal Medicine 05/14/21
--- OUTSIDE RECORDS SUMMARY | 2024-09-24 15:25 | XMS_ITS | Encounter Summary ---
Author Organization [facility] Address [address] [place] [address] [place] [address] Phone Care Team Providers Care Ferryboat Pilot Name Role Phone Castillo Marina MD Primary Care Provider Unknown, Unknown Primary Care Provider Eugenio Louie MD Primary Care Provider Encounter Details Date Type Department Care Team (Late st Contact Info) Description 02/16/2022 Procedure Pass [facility], Ct Scan - [address] [address] Social History Tobacco Use Types Packs/Day Years Used Date Smoking Tobacco: Former Cigarettes 1 30 Smokeless Tobacco: Never Alcohol Use Standard Drinks/Week Comments Yes 0 (1 standard drink = 0.6 oz pur e alcohol) 1 glass wine per month Sex and Gender Information Value Date Recorded Sex Assigned at Male 07/04/2021 10:55 PM EDT Legal Sex Male 6:00 PM EST Gender Identity Male 07/04/2021 10:55 PM EDT Sexual Orientation Straight 12/09/2023 5: 53 PM EDT documented as of this encounter Plan of Treatment Upcoming Encounters Date Type Department Care Team (Late st Contact Info) Description 01/01/2025 11:30 AM EDT Office Visit [facility] [address] [place] [address] Sal Rodriguez MD [address] [place] [phone] documented as of this encounter Visit Diagnoses Not on filedocumented in this encounter Additional Health Concerns Infection Onset Date Last Indicated Resolved Time CoV-Risk 02/27/2024 02/27/2024 03/09/2024 1:24 AM EST documented as of this encounter Care Teams Ferryboat Pilot Relationship Specialty Start Date End Date Castillo Marina MD [address] [place] [address] PCP - General 09/04/13 05/17/22 Unknown, Unknown, MD PCP - General 05/18/22 08/24/22 Eugenio Lovett MD [address] [place] [address] PCP - General Family Medicine 08/25/22 documented as of this encounter Additional Source Comments The information contained in this document represents components of the legal health record. It is not the complete legal health record.[facility]
== END 2024-09-24 15:15 | disposition home or self-care (01) ==
LOC: HO.HMCFM 14:34
PROVIDERS: PCP Family Medicine; Visit Provider Family Medicine
DX: I10 Essential (primary) hypertension (principal); E78.5 Hyperlipidemia, unspecified; K59.00 Constipation, unspecified

== ENCOUNTER → 2024-09-24 14:33 | Outpatient (BNVA) | payer MEDICARE, SELFPAY | PROVIDERS: PCP Family Medicine; Visit Provider Family Medicine | DX: I10 Essential (primary) hypertension (principal); E78.5 Hyperlipidemia, unspecified; K59.00 Constipation, unspecified | CPT/HCPCS: 99212 ==

== ENCOUNTER 2024-12-12 08:56 | Outpatient (REF) | payer MEDICARE, SELFPAY ==
[2024-12-12 11:52] LABS: PSA,Total (Free>4and<10) 0.28 ng/mL (0.00-4.00)
== END 2024-12-12 08:57 | disposition home or self-care (01) ==
LOC: HO.HMGCLDS 08:56
PROVIDERS: PCP Family Medicine; Visit Provider Urology
DX: N40.1 Benign prostatic hyperplasia with lower urinary tract symptoms (principal); Z12.5 Encounter for screening for malignant neoplasm of prostate
CPT/HCPCS: 36415; 84153

== ENCOUNTER 2024-12-13 11:25 | Outpatient (AMB) | payer MEDICARE, SELFPAY ==
--- NOTE | 2024-12-13 11:35 | A.OFFVIS_ITS ---
Intake Visit Reasons: 1y/PSA Intake Note: Patient is present for 1Y PSA Urology Medication:TAMSULOSIN Antibiotic Allergy:NONE Blood Thinner:NONE PVR:0ML Allergies No Known Allergies Allergy (Verified 12/13/24 11:36) Medication List - Last Reconciled 12/13/24 by Erik Apodaca MD atorvastatin 40 mg PO DAILY 90 days gabapentin 600 mg PO TID 30 days tamsulosin 0.4 mg PO BEDTIME HPI Comments Details: 12/13/24--Pardeep is an 83-year-old male followed for BPH he is here in follow-up he had a PSA done on 12/12/2024 resulting 0.28 ng/mL bladder scan PVR today is 0 mL he continues on tamsulosin daily. History of Present Illness The patient is an 84-year-old male presenting for follow-up of Benign Prostatic Hyperplasia (BPH). He has been on tamsulosin for management and reports adherence to the medication regimen. Recent PSA testing on 12/12/24 showed a result of 0.28 ng/mL, which is within normal limits. He denies any issues with voiding at this time The patient also has a history of Idiopathic Pulmonary Fibrosis, diagnosed in 2018. He experiences shortness of breath but is not on a large number of medications for this condition. He takes gabapentin, which helps with his chronic cough. Results - PSA test: 0.28 ng/mL on 12/12/24 Plan 1. Benign Prostatic Hyperplasia (Bph) - Continue tamsulosin daily for management of BPH. - Monitor PSA levels regularly to assess for any changes. 12/15/23--Pardeep is a 83-year-old male who presents for follow up BPH. LV--06/04/2022-- The patient states having benefits with Flomax 0.4 mg daily. Denies irritative voiding symptoms. Nocturia x2. Denies hematuria. Cont tamsulosin. 03/22/2022-- 82 year old male here for evaluation for abnormal findings on scrotal ultrasound PCP - Eugenio Lovett MD. The patient states he had a rash on the scrotal skin, was seen by Dermatology --was given a cream which helped. He complains of slowing of the urinary stream denies dysuria, denies gross hematuria. he had a scrotal sono- I reviewed results with the patient --6 mm hyperechoic area, may represent a calcification/report recommends fu imaging PSA - 01/04/22- 0.38 ng/mL Evaluation today: UA leuk - neg, blood trace, Bladder scan PVR 23 mL, prostate exam irregular, no hard nodules ---testes -nontender, left epididymis, inferior pole firm, non - specific finding c/w ultrasound report. Plan - discussed trial of flomax, will repeat scrotal U/S Imaging- Scrotal U/S--Left epididymal--0.6 x 0.5 x 0.5 cm hyperechoic observation in the epididymal body, possibly representing a calcification. Scrotum US results ?03/26/2022-- Bilateral epididymal cysts and varicoceles. The calcification/echogenic focus seen in the left epididymis is unchanged and stable. COUNT INCLUDES THE [facility] Medical History Cecal volvulus Hypotension Surgical History Status post colon resection History of surgical procedure (~07/29/23) History of back surgery History of rotator cuff surgery History of ear, nose, and throat (ENT) surgery History of left knee replacement Family History Other Substance use disorder Social History Household Members: Spouse and Other Household Members Other:: independent living Housing: Apartment Alcohol intake: never Patient Tobacco Use Status: Former Tobacco user e-Cigarette/Vaping Use: Never Used Second Hand Smoke Exposure: No service: No Current occupational status: retired Current occupational exposures/hazards: No Cognitive needs: No Hearing needs: Yes (hearing aides) Vision needs: No Review of Systems Const All systems reviewed & are unremarkable except as noted in HPI and below Reports no additional complaints Eyes Reports no additional complaints ENT Reports no additional complaints Card Reports no additional complaints Resp Reports no additional complaints GI Reports no additional complaints Reports as per HPI Musc Reports no additional complaints Skin/Breast Reports system reviewed and no additional complaints, except as documented Neuro Reports no additional complaints Psych Reports no additional complaints Endo Reports no additional complaints Nasir/Lymph Reports no additional complaints Aller/Immun Reports no additional complaints Results Reviewed Results Reviewed: Date of Service: 03/26/22 EXAMINATION: US SCROTUM CLINICAL INFORMATION: Lesion of testis. COMPARISON: Ultrasound scrotum 12/29/2021. TECHNIQUE: A sonogram of the scrotum was performed assessing ahskins-scale appearance and color Doppler flow. Spectral Doppler analysis of the arterial and venous flow were performed in the testes bilaterally. FINDINGS: RIGHT: Right testicle measures 4.26 x 1.72 x 2.75 cm, volume 10.6 mL. No focal testicular parenchymal lesions are visualized. Spectral Doppler analysis of the arterial and venous flow is normal in the right testis. Right epididymal head is normal in size. Three epididymal cysts are noted ranging in size from 3 to 7 mm similar to the prior study. A small right-sided varicocele is present similar to prior. Right epididymal Doppler flow is normal. LEFT: Left testicle measures 3.94 x 1.81 x 2.71 cm, volume 10.1 mL. No focal testicular parenchymal lesions are visualized. Spectral Doppler analysis of the arterial and venous flow is normal in the left testis. Left epididymal head is normal in size. Three epididymal cysts are present ranging in size from 5 to 8 mm. The previously noted calcification in the left epididymis is again noted and unchanged measuring about 5 mm in size. No left hydrocele is seen. A small left-sided varicocele is present. Left epididymal Doppler flow is normal. IMPRESSION: 1. No significant interval change since the prior study. 2. Bilateral epididymal cysts. 3. Bilateral small varicoceles. 4. The calcification/echogenic focus seen in the left epididymis is unchanged and stable. Assessment & Plan Assessment & Plan (1) Screening for prostate cancer: Code(s): Z12.5 - Encounter for screening for malignant neoplasm of prostate Category: Medical (2) BPH loc w urin obs/LUTS: Code(s): N40.1 - Benign prostatic hyperplasia with lower urinary tract symptoms Category: Medical Plan Plan 1. Benign Prostatic Hyperplasia (Bph) - Continue tamsulosin daily for management of BPH. - Monitor PSA levels regularly to assess for any changes. Orders: Orders PSA,Total (Free>4and<10) 11 Months N40.1 - Benign prostatic hyperplasia with lower urinary tract symptoms, Z12.5 - Encounter for screening for malignant neoplasm of prostate Patient Instructions: The patient had an opportunity to ask questions regarding treatment plan. The patient expressed understanding and agreement with the above treatment plan. The patient is aware they should contact our office by phone for worsening of their current condition or the appearance of new symptoms. Compliance is encouraged with any medications and followup testing that is ordered. It is a privilege to be allowed the opportunity to participate in the urologic care of your patient. If you have any questions or concerns regarding treatment for the above conditions please do not hesitate to contact me. The office telephone contact is [phone]. This note is constructed in part using voice recognition software. While every effort has been made to ensure accuracy project financial analyst errors may have been included. Yours sincerely, Erik Apodaca MD Scribe Plan - Not visible on output: Patient was informed and verbally consented to the use of an ambient scribe for clinic note documentation during this visit. Coding Level of Care Code Est Pt Level 3 (62352) Diagnoses Screening for prostate cancer Z12.5 BPH loc w urin obs/LUTS N40.1
== END 2024-12-13 12:08 | disposition home or self-care (01) ==
LOC: HO.HUSH 11:26
PROVIDERS: PCP Family Medicine; Visit Provider Urology
DX: Z12.5 Encounter for screening for malignant neoplasm of prostate (principal); N40.1 Benign prostatic hyperplasia with lower urinary tract symptoms; Z13.9 Encounter for screening, unspecified
CPT/HCPCS: 99213

== ENCOUNTER → 2024-12-13 11:25 | Outpatient (BNVA) | payer MEDICARE, SELFPAY | PROVIDERS: PCP Family Medicine; Visit Provider Urology | DX: N40.1 Benign prostatic hyperplasia with lower urinary tract symptoms (principal); Z12.5 Encounter for screening for malignant neoplasm of prostate; R35.1 Nocturia; Z87.891 Personal history of nicotine dependence | CPT/HCPCS: 51798; 81003; 99212 ==